=== PATIENT | male | born 1935 | race Hispanic/Latino ===

== ENCOUNTER 2018-09-01 17:03 | Inpatient (IN) | payer BC ==
[2018-09-01 17:10] VITALS: BMI 24.0
[2018-09-01] MEDS ORDERED: Sodium Chloride 0.9% 1,000 ML IV STA (18:34)
--- NOTE | 2018-09-01 18:34 | ED PDOC ---
Arrival/HPI - General Historian: Patient, Family - History of Present Illness Narrative History of Present Illness (Text): 09/01/18 18:28 82yo male with past medical history of hypertension, hyperlipdemia, CLL who present to Emergency department with the cousin by the bedside complaining of dizziness x 2days. The cousin also report poor appetite for months now and over 10lb weight loss over the past 2weeks. Patient describes dizziness as lightheadedness and almost having a syncopal episode with the dizziness. Denies any exacerbating/relieving factors. Also reports tinnitus to his right ear. The cousin states he had cerumen removal from his right ear a month ago. [facility] patient did not get treatment for the CLL secondary to his age and WBC count of 60,000. [facility] plan is to treat pt when the WBC goes above 100,000.00. Patient denies chest pain, shortness of breath, visual changes, diaphoresis, focal weakness, abdominal pain, nausea, vomiting, diarrhea, fever, chills, sick contact, any other complaint. <Yarely Britt A - Last Filed: 09/02/18 01:41> <Attila Ramirez - Last Filed: 09/05/18 03:33> - General Chief Complaint: Dizziness/Lightheaded Past Medical History - Provider Review Nursing Documentation Reviewed: Yes - Infectious Disease Hx of Infectious Diseases: None - Hematological/Oncological Hx Leukemia: Yes (cll) - Gastrointestinal Other/Comment: large inguinal hernia - Psychiatric Hx Psychophysiologic Disorder: No Hx Substance Use: No - Anesthesia Hx Anesthesia Reactions: No <Yarely Britt A - Last Filed: 09/02/18 01:41> Family/Social History - Physician Review Nursing Documentation Reviewed: Yes Family/Social History: Unknown Family HX Smoking Status: Unknown If Ever Smoked Hx Alcohol Use: No Hx Substance Use: No <Yarely Britt A - Last Filed: 09/02/18 01:41> Allergies/Home Meds <Yarely Britt A - Last Filed: 09/02/18 01:41> <Attila Ramirez - Last Filed: 09/05/18 03:33> Allergies/Adverse Reactions: Allergies No Known Allergies Allergy (Verified 09/01/18 17:30) Review of Systems - Physician Review All systems were reviewed & negative as marked: Yes - Review of Systems Constitutional: Normal Eyes: Normal ENT: Normal Respiratory: Normal Cardiovascular: Normal Gastrointestinal: Normal Genitourinary Male: Normal Musculoskeletal: Normal Skin: Normal Neurological: Dizziness. absent: Headache, Focal Weakness, Speech Changes Endocrine: Normal Hemo/Lymphatic: Normal Psychiatric: Normal <Diru,Happiness A - Last Filed: 09/02/18 01:41> Physical Exam Vital Signs Reviewed: Yes Vital Signs Temp Pulse Resp BP Pulse Ox 09/01/18 17:05 98.0 F 81 18 172/75 H 97 Temperature: Afebrile Blood Pressure: Normal Pulse: Regular Respiratory Rate: Normal Appearance: Positive for: Well-Appearing, Non-Toxic, Comfortable Pain Distress: None Mental Status: Positive for: Alert and Oriented X 3 - Systems Exam Head: Present: Atraumatic, Normocephalic Pupils: Present: PERRL Extroacular Muscles: Present: EOMI Conjunctiva: Present: Normal Ears: Present: Other (Partial cerumen impaction noted to b/l TM) Mouth: Present: Moist Mucous Membranes Neck: Present: Normal Range of Motion Respiratory/Chest: Present: Clear to Auscultation, Good Air Exchange. No: Respiratory Distress, Accessory Muscle Use, Wheezes, Decreased Breath Sounds, Rales, Retracting, Rhonchi Cardiovascular: Present: Regular Rate and Rhythm, Normal S1, S2. No: Murmurs Abdomen: Present: Normal Bowel Sounds. No: Tenderness, Distention, Peritoneal Signs, Rebound, Guarding, McBurney's Point Tender, Rovsing's Sign Present Genitourinary Male: Present: Other (Prominent nontender scrotal hernia noted) Back: Present: Normal Inspection Upper Extremity: Present: Normal Inspection. No: Cyanosis, Edema Lower Extremity: Present: Normal Inspection. No: Edema Neurological: Present: GCS=15, CN II-XII Intact, Speech Normal, Motor Func Grossly Intact, Normal Sensory Function, Normal Cerebellar Funct, Memory Normal Skin: Present: Warm, Dry, Normal Color. No: Rashes Psychiatric: Present: Alert, Oriented x 3, Normal Insight, Normal Concentration <Diru,Happiness A - Last Filed: 09/02/18 01:41> Vital Signs Temp Pulse Resp BP Pulse Ox 09/01/18 20:19 62 18 137/61 97 09/01/18 17:05 98.0 F 81 18 172/75 H 97 <Attila Ramirez - Last Filed: 09/05/18 03:33> Medical Decision Making ED Course and Treatment: 09/02/18 01:36 82yo male in Emergency department for dizziness, weakness, weight loss x few days. Labs EKG Chest X-ray 1L NS EKG NSR with left anterior fascicular block @ 77bpm Chest X-ray NAD Head CT IMPRESSION: No evidence of acute intracranial hemorrhage mass effect or midline shift. Volume loss and white matter changes likely represent chronic microvascular ischemic disease. Labs was reviewed and WBC of 41,000 was noted, this is secondary to pt's diagnosis of CLL. Lab was otherwise nonspecific. PT continued to complain of dizziness in Emergency department He was admitted for further evaluation to r/o cardiac or neuro cause of his symptom Case was DW Dr. Ag and he accepted pt to his service. - RAD Interpretation Radiology Orders: 09/01/18 17:31 CHEST PORTABLE [RAD] Stat 09/01/18 17:33 HEAD W/O CONTRAST [CT] Stat <Yarely Britt - Last Filed: 09/02/18 01:41> - Lab Interpretations Lab Results: 09/01/18 19:15 09/01/18 19:15 Lab Results 09/01/18 19:15: Sodium 144, Potassium 4.2, Chloride 108 H, Carbon Dioxide 30, Anion Gap 11, BUN 16, Creatinine 1.0, Est GFR ( Amer) > 60, Est GFR (Non- Af Amer) > 60, Random Glucose 94, Calcium 9.1, Magnesium 2.3 H, Total Bilirubin 0.6, AST 30, ALT 22, Alkaline Phosphatase 81, Lactate Dehydrogenase 569, Total Creatine Kinase 26 L, Troponin I < 0.01, Total Protein 6.1, Albumin 4.0, Globulin 2.1, Albumin/Globulin Ratio 1.9 H 09/01/18 19:15: PT 11.3, INR 0.99, APTT 28.7 09/01/18 19:15: WBC 41.9 H*, RBC 3.71, Hgb 11.9 L, Hct 36.2 L, MCV 97.6, MCH 32.1, MCHC 32.9, RDW 14.8 H, Plt Count 98 L, MPV 10.8, Eos % (Auto) 0.2 L, Baso % (Auto) 0.2, Eos # (Auto) 0.1, Baso # (Auto) 0.09, Neutrophils % (Manual) 11 L, Lymphocytes % (Manual) 82 H, Atypical Lymphs % 5 H, Monocytes % (Manual) 1, Eosinophils % (Manual) 1, Platelet Evaluation Low 09/01/18 19:05: Urine Color Yellow, Urine Appearance Clear, Urine pH 7.0, Ur Specific [place] <= 1.005, Urine Protein Negative, Urine Glucose (UA) Negative, Urine Ketones Negative, Urine Blood Trace-lysed H, Urine Nitrate Negative, Urine Bilirubin Negative, Urine Urobilinogen 0.2, Ur Leukocyte Esterase Negative, Urine RBC Negative, Urine WBC Negative, Ur Epithelial Cells None - RAD Interpretation Radiology Orders: 09/01/18 17:31 CHEST ONE VIEW [RAD] Stat 09/01/18 17:33 HEAD W/O CONTRAST [CT] Stat - Medication Orders Current Medication Orders: Aspirin (Ecotrin) 81 mg PO DAILY [facility] Last Admin: 09/04/18 11:11 Dose: 81 mg Atorvastatin Calcium (Lipitor) 40 mg PO DIN [facility] Last Admin: 09/04/18 17:56 Dose: 40 mg Clopidogrel Bisulfate (Plavix) 75 mg PO DAILY [facility] Enoxaparin Sodium (Lovenox) 40 mg SC DAILY [facility]; Protocol Last Admin: 09/04/18 11:10 Dose: 40 mg Subcutaneous Administrations Document 09/04/18 11:10 CD (Rec: 09/04/18 11:10 CD [id number]) Injection Site MAR Injection Site Left Arm Charges for Administration # of Subcutaneous Administrations 1 Finasteride (Proscar) 5 mg PO DAILY [facility] Last Admin: 09/04/18 11:11 Dose: 5 mg Sodium Chloride (Sodium Chloride 0.9%) 1,000 mls @ 60 mls/hr IV .[id number] [facility] Last Admin: 09/04/18 00:29 Dose: Not Given Non-Admin Reason: bag still infusing Levothyroxine Sodium (Synthroid) 25 mcg PO 0600 [facility] Mupirocin (Bactroban Ointment) 0 gm TOP BID [facility] Last Admin: 09/04/18 18:56 Dose: 1 applic Pantoprazole Sodium (Protonix Ec Tab) 40 mg PO 0600 [facility] Last Admin: 09/04/18 05:26 Dose: 40 mg Quetiapine Fumarate (Seroquel) 25 mg PO HS [facility]; Protocol Last Admin: 09/04/18 21:07 Dose: 25 mg Behavioural Document 09/04/18 21:07 ALYSA (Rec: 09/04/18 21:07 [facility] WITH [facility] [id number]) Maintenance Maintenance Dose Yes Behavior Behavior for Medication: Anxiety Insomnia Re-Assess: Reassess Psych Meds Document 09/04/18 22:07 YANDELRAL (Rec: 09/04/18 23:17 [id number]) Reassess Psych Med Effective Tamsulosin HCl (Flomax) 0.4 mg PO DAILY [facility] Last Admin: 09/04/18 11:10 Dose: 0.4 mg Discontinued Medications Clopidogrel Bisulfate (Plavix) 300 mg PO STAT [facility] Stop: 09/04/18 16:37 Last Admin: 09/04/18 17:57 Dose: 300 mg Sodium Chloride (Sodium Chloride 0.9%) 1,000 mls @ 100 mls/hr IV .Q10H [facility] Stop: 09/02/18 04:33 Last Admin: 09/01/18 19:34 Dose: 100 mls/hr eMAR Start Stop Document 09/01/18 19:34 MR (Rec: 09/01/18 19:34 MR [id number]) Intravenous Solution Start Date 09/01/18 Start Time 19:34 Dexamethasone 2 mg/ Sodium (Chloride) 50.5 mls @ 150 mls/hr IV ONCE ONE Stop: 09/02/18 17:39 Last Admin: 09/02/18 18:16 Dose: 150 mls/hr eMAR Start Stop Document 09/02/18 18:16 (Rec: 09/02/18 18:17 [id number]) Intravenous Solution Start Date 09/02/18 Start Time 18:16 Meclizine HCl (Antivert) 25 mg PO STAT ST[facility] Stop: 09/01/18 19:49 Last Admin: 09/01/18 20:06 Dose: 25 mg Pantoprazole Sodium (Protonix Inj) 40 mg IVP DAILY [facility] Last Admin: 09/02/18 11:58 Dose: 40 mg IVP Administration Document 09/02/18 11:58 MF (Rec: 09/02/18 11:59 [id number]) Charges for Administration # of IVP Administrations 1 <Attila Ramirez - Last Filed: 09/05/18 03:33> - PA / SOIL TECHNICIAN / Resident Statement MIGUE has reviewed & agrees with the documentation as recorded. MIGUE has examined the patient and agrees with the treatment plan. <Attila Ramirez - Last Filed: 09/05/18 03:33> Disposition/Present on Arrival - Present on Arrival Any Indicators Present on Arrival: No History of DVT/PE: No History of Uncontrolled Diabetes: No Urinary Catheter: No History of Decub. Ulcer: No History Surgical Site Infection Following: None - Disposition Have Diagnosis and Disposition been Completed?: Yes Disposition Time: 20:00 Patient Plan: Admission <Yarely Britt - Last Filed: 09/02/18 01:41> <Attila Ramirez - Last Filed: 09/05/18 03:33> - Disposition Diagnosis: Near syncope, Weakness Disposition: HOSPITALIZED Patient Problems: Current Active Problems Problem Status Onset Near syncope Acute Weakness Acute Condition: FAIR
--- NOTE | 2018-09-01 18:38 | CT ---
Date of service: 09/01/2018 PROCEDURE: CT HEAD WITHOUT CONTRAST. HISTORY: dizziness COMPARISON: None available. TECHNIQUE: Axial computed tomography images were obtained through the head/brain without intravenous contrast. Radiation dose: Total exam DLP = 926.33 mGy-cm. This CT exam was performed using one or more of the following dose reduction techniques: Automated exposure control, adjustment of the mA and/or kV according to patient size, and/or use of iterative reconstruction technique. FINDINGS: HEMORRHAGE: No intracranial hemorrhage. BRAIN: No mass effect or edema. Mild to moderate volume loss. [id number] white matter changes may represent chronic microvascular ischemic disease. VENTRICLES: Unremarkable. No hydrocephalus. CALVARIUM: Unremarkable. PARANASAL SINUSES: Unremarkable as visualized. No significant inflammatory changes. MASTOID AIR CELLS: Unremarkable as visualized. No inflammatory changes. OTHER FINDINGS: None. IMPRESSION: No evidence of acute intracranial hemorrhage mass effect or midline shift. Volume loss and white matter changes likely represent chronic microvascular ischemic disease.
[2018-09-01 19:12] LABS: URINE BILIRUBIN NEGATIVE (NEGATIVE); URINE BLOOD TRACE-LYSED (NEGATIVE); URINE GLUCOSE (UA) NEGATIVE (NEGATIVE); URINE LEUKOCYTE ESTERASE NEGATIVE Leu/uL (NEGATIVE); URINE PROTEIN NEGATIVE mg/dL (<30 mg/dL); URINE UROBILINOGEN 0.2 E.U./dL (<1 E.U./dL)
[2018-09-01 19:13] LABS: URINE APPEARANCE CLEAR (CLEAR); URINE COLOR YELLOW (YELLOW)
[2018-09-01 19:20] LABS: URINE RBC NEGATIVE /hpf (0-2); URINE WBC NEGATIVE /hpf (0-6)
[2018-09-01 19:43] LABS: BASO # 0.09 K/mm3 (0.0-2.0); BASO % 0.2 % (0.0-3.0); EOS # 0.1 (0.0-0.7); EOS % 0.2 % (1.5-5.0); HEMOGLOBIN 11.9 g/dL (14.0-18.0); MEAN CELL VOLUME 97.6 fl (80.0-105.0); MEAN CORPUSCULAR HEMOGLOBIN 32.1 pg (25.0-35.0); MEAN CORPUSCULAR HGB CONC 32.9 g/dl (31.0-37.0); MEAN PLATELET VOLUME 10.8 fl (7.0-11.0); PLATELET COUNT 98 10^3/uL (120.0-450.0); RBC 3.71 10^6/uL (3.5-6.1); RED CELL DISTRIBUTION WIDTH 14.8 % (11.5-14.5)
[2018-09-01 19:50] LABS: ALB/GLOB RATIO 1.9 (1.1-1.8); ALT/SGPT 22 U/L (7-56); AST/SGOT 30 U/L (17-59); BLOOD UREA NITROGEN 16 mg/dL (7-21); CALCIUM 9.1 mg/dL (8.4-10.5); GFR NON-AFRICAN AMERICAN > 60
[2018-09-01 19:52] LABS: INR 0.99; PARTIAL THROMBOPLASTIN TIME 28.7 Seconds (25.1-36.5); PROTHROMBIN TIME 11.3 SECONDS (9.4-12.5)
[2018-09-01 19:58] LABS: WHITE BLOOD COUNT 41.9 10^3/uL (4.5-11.0)
[2018-09-01 20:01] LABS: TROPONIN I < 0.01 ng/mL
[2018-09-01 20:03] LABS: ATYPICAL LYMPHOCYTE 5 % (0.0-0.0); EOSINOPHIL 1 % (0.0-3.0); LYMPHOCYTE 82 % (22.0-35.0); MONOCYTE 1 % (1.0-6.0); NEUTROPHIL 11 % (50.0-70.0)
[2018-09-01 20:04] LABS: PLATELET ESTIMATE LOW (NORMAL)
--- NOTE | 2018-09-02 08:07 | CP.PCM.CON ---
History of Present Illness - History of Present Illness History of Present Illness: Awake, alert, oriented, no distress, feels dizzy when sitting up Reason for consultation:Cardiac evaluation of syncopal episode with dizziness Brief history of present illness: An 82 year old male who came in to the ER due to dizziness and lightheadedness almost having a syncopal episode. Complaints of tinnitus of right ear and recently had removal of impacted cerumen on right ear.History of hypertension, hyperlipidemia, CLL. Denies chest pain or shortness of breath. Seen and examined by me and Dr. Silva Review of Systems - Review of Systems All systems: reviewed and no additional remarkable complaints except Review of Systems: as per HPI Past Patient History - Infectious Disease Hx of Infectious Diseases: None - Past Social History Smoking Status: Unknown If Ever Smoked - CARDIAC Hx Cardiac Disorders: Yes Hx Hypercholesterolemia: Yes Hx Hypertension: Yes - PULMONARY Hx Respiratory Disorders: No - NEUROLOGICAL Hx Neurological Disorder: Yes Hx Dizziness: Yes - HEENT Hx HEENT Problems: Yes Other/Comment: [place] - RENAL Hx Chronic Kidney Disease: No - ENDOCRINE/METABOLIC Hx Endocrine Disorders: No - HEMATOLOGICAL/ONCOLOGICAL Hx Leukemia: Yes (cll) - INTEGUMENTARY Hx Dermatological Problems: No - MUSCULOSKELETAL/RHEUMATOLOGICAL Hx Musculoskeletal Disorders: Yes Hx Falls: Yes (08/23/18) - GASTROINTESTINAL Other/Comment: large inguinal hernia - GENITOURINARY/GYNECOLOGICAL Hx Genitourinary Disorders: Yes Hx Prostate Problems: Yes (hernia / enlarged prostate) - PSYCHIATRIC Hx Psychophysiologic Disorder: No Hx Substance Use: No - ANESTHESIA Hx Anesthesia Reactions: No Meds Allergies/Adverse Reactions: Allergies Allergy/AdvReac Type Severity Reaction Status Date / Time No Known Allergies Allergy Verified 09/01/18 17:30 - Medications Medications: Current Medications Aspirin (Ecotrin) 81 mg PO DAILY [facility] Atorvastatin Calcium (Lipitor) 40 mg PO DIN [facility] Enoxaparin Sodium (Lovenox) 40 mg SC DAILY [facility]; Protocol Sodium Chloride (Sodium Chloride 0.9%) 1,000 mls @ 60 mls/hr IV .[id number] [facility] Pantoprazole Sodium (Protonix Inj) 40 mg IVP DAILY [facility] Quetiapine Fumarate (Seroquel) 25 mg PO HS [facility]; Protocol Last Admin: 09/01/18 22:41 Dose: 25 mg Physical Exam - Constitutional Appears: Non-toxic, No Acute Distress - Head Exam Head Exam: NORMAL INSPECTION, NORMOCEPHALIC - Eye Exam Eye Exam: Normal appearance Pupil Exam: NORMAL ACCOMODATION - ENT Exam ENT Exam: Mucous Membranes Moist, Normal Exam Additional comments: ringing of right ear - Respiratory Exam Respiratory Exam: Clear to Auscultation Bilateral, NORMAL BREATHING PATTERN - Cardiovascular Exam Cardiovascular Exam: Bradycardia, +S1, +S2 Additional comments: Telemetry 50's - GI/Abdominal Exam GI & Abdominal Exam: Normal Bowel Sounds, Soft - Extremities Exam Extremities exam: Positive for: full ROM, normal capillary refill - Neurological Exam Neurological exam: Alert, Oriented x3 - Psychiatric Exam Psychiatric exam: Normal Affect, Normal Mood - Skin Skin Exam: Dry, Normal Color, Warm Results - Vital Signs Recent Vital Signs: Last Vital Signs Temp 98.5 F 09/02/18 06:00 Pulse 60 09/02/18 06:00 Resp 20 09/02/18 06:00 BP 132/61 09/02/18 06:00 Pulse Ox 94 L 09/02/18 06:00 - Labs Result Diagrams: 09/01/18 19:15 09/01/18 19:15 Labs: Laboratory Results - last 24 hr 09/01/18 09/01/18 09/01/18 19:05 19:15 19:15 WBC 41.9 H* RBC 3.71 Hgb 11.9 L Hct 36.2 L MCV 97.6 MCH 32.1 MCHC 32.9 RDW 14.8 H Plt Count 98 L MPV 10.8 Eos % (Auto) 0.2 L Baso % (Auto) 0.2 Eos # (Auto) 0.1 Baso # (Auto) 0.09 Neutrophils % (Manual) 11 L Lymphocytes % (Manual) 82 H Atypical Lymphs % 5 H Monocytes % (Manual) 1 Eosinophils % (Manual) 1 Platelet Evaluation Low PT 11.3 INR 0.99 APTT 28.7 Sodium Potassium Chloride Carbon Dioxide Anion Gap BUN Creatinine Est GFR ( Amer) Est GFR (Non-Af Amer) Random Glucose Calcium Magnesium Total Bilirubin AST ALT Alkaline Phosphatase Lactate Dehydrogenase Total Creatine Kinase Troponin I Total Protein Albumin Globulin Albumin/Globulin Ratio Urine Color Yellow Urine Appearance Clear Urine pH 7.0 Ur Specific [place] <= 1.005 Urine Protein Negative Urine Glucose (UA) Negative Urine Ketones Negative Urine Blood Trace-lysed H Urine Nitrate Negative Urine Bilirubin Negative Urine Urobilinogen 0.2 Ur Leukocyte Esterase Negative Urine RBC Negative Urine WBC Negative Ur Epithelial Cells None 09/01/18 19:15 WBC RBC Hgb Hct MCV MCH MCHC RDW Plt Count MPV Eos % (Auto) Baso % (Auto) Eos # (Auto) Baso # (Auto) Neutrophils % (Manual) Lymphocytes % (Manual) Atypical Lymphs % Monocytes % (Manual) Eosinophils % (Manual) Platelet Evaluation PT INR APTT Sodium 144 Potassium 4.2 Chloride 108 H Carbon Dioxide 30 Anion Gap 11 BUN 16 Creatinine 1.0 Est GFR ( Amer) > 60 Est GFR (Non-Af Amer) > 60 Random Glucose 94 Calcium 9.1 Magnesium 2.3 H Total Bilirubin 0.6 AST 30 ALT 22 Alkaline Phosphatase 81 Lactate Dehydrogenase 569 Total Creatine Kinase 26 L Troponin I < 0.01 Total Protein 6.1 Albumin 4.0 Globulin 2.1 Albumin/Globulin Ratio 1.9 H Urine Color Urine Appearance Urine pH Ur Specific [place] Urine Protein Urine Glucose (UA) Urine Ketones Urine Blood Urine Nitrate Urine Bilirubin Urine Urobilinogen Ur Leukocyte Esterase Urine RBC Urine WBC Ur Epithelial Cells Assessment & Plan - Assessment and Plan (Free Text) Assessment: An 82 year old male who came in to the ER due to dizziness and lightheadedness almost having a syncopal episode. Complaints of tinnitus of right ear and recently had removal of impacted cerumen on right ear.History of hypertension, hyperlipidemia, CLL (no treatment). Denies chest pain or shortness of breath.CT of head no bleeding. Rule out orthostatic hypotension, No previous cardiac work up at [facility]. Will order Echo to evaluate LV function and valves. Plan: ECHo to evaluate LV function Orthostatic vital signs Heart rate sinus bradycardia 50's Controlled blood pressure Troponin normal TSH, Lipid profile Continue IV hydration Continue current treatment Continue current medications Will follow up Chart reviewed Further recommendation during hospital course Plan and treatment discussed with Dr. Silva Thank you Dr. Ag for the opportunity of taking care of Mr. Juni Virk - Date & Time Date: 09/02/18 Time: 06:30
--- NOTE | 2018-09-02 08:11 | CP.PCM.CON ---
Past Patient History - Infectious Disease Hx of Infectious Diseases: None - Past Social History Smoking Status: Unknown If Ever Smoked - CARDIAC Hx Cardiac Disorders: Yes Hx Hypercholesterolemia: Yes Hx Hypertension: Yes - PULMONARY Hx Respiratory Disorders: No - NEUROLOGICAL Hx Neurological Disorder: Yes Hx Dizziness: Yes - HEENT Hx HEENT Problems: Yes Other/Comment: [place] - RENAL Hx Chronic Kidney Disease: No - ENDOCRINE/METABOLIC Hx Endocrine Disorders: No - HEMATOLOGICAL/ONCOLOGICAL Hx Leukemia: Yes (cll) - INTEGUMENTARY Hx Dermatological Problems: No - MUSCULOSKELETAL/RHEUMATOLOGICAL Hx Musculoskeletal Disorders: Yes Hx Falls: Yes (08/23/18) - GASTROINTESTINAL Other/Comment: large inguinal hernia - GENITOURINARY/GYNECOLOGICAL Hx Genitourinary Disorders: Yes Hx Prostate Problems: Yes (hernia / enlarged prostate) - PSYCHIATRIC Hx Psychophysiologic Disorder: No Hx Substance Use: No - ANESTHESIA Hx Anesthesia Reactions: No Meds Allergies/Adverse Reactions: Allergies Allergy/AdvReac Type Severity Reaction Status Date / Time No Known Allergies Allergy Verified 09/01/18 17:30 - Medications Medications: Current Medications Aspirin (Ecotrin) 81 mg PO DAILY [facility] Atorvastatin Calcium (Lipitor) 40 mg PO DIN [facility] Enoxaparin Sodium (Lovenox) 40 mg SC DAILY [facility]; Protocol Sodium Chloride (Sodium Chloride 0.9%) 1,000 mls @ 60 mls/hr IV .[id number] [facility] Pantoprazole Sodium (Protonix Inj) 40 mg IVP DAILY [facility] Quetiapine Fumarate (Seroquel) 25 mg PO HS [facility]; Protocol Last Admin: 09/01/18 22:41 Dose: 25 mg Results - Vital Signs Recent Vital Signs: Last Vital Signs Temp 98.5 F 09/02/18 06:00 Pulse 60 09/02/18 06:00 Resp 20 09/02/18 06:00 BP 132/61 09/02/18 06:00 Pulse Ox 94 L 09/02/18 06:00 - Labs Result Diagrams: 09/01/18 19:15 09/01/18 19:15 Labs: Laboratory Results - last 24 hr 09/01/18 09/01/18 09/01/18 19:05 19:15 19:15 WBC 41.9 H* RBC 3.71 Hgb 11.9 L Hct 36.2 L MCV 97.6 MCH 32.1 MCHC 32.9 RDW 14.8 H Plt Count 98 L MPV 10.8 Eos % (Auto) 0.2 L Baso % (Auto) 0.2 Eos # (Auto) 0.1 Baso # (Auto) 0.09 Neutrophils % (Manual) 11 L Lymphocytes % (Manual) 82 H Atypical Lymphs % 5 H Monocytes % (Manual) 1 Eosinophils % (Manual) 1 Platelet Evaluation Low PT 11.3 INR 0.99 APTT 28.7 Sodium Potassium Chloride Carbon Dioxide Anion Gap BUN Creatinine Est GFR ( Amer) Est GFR (Non-Af Amer) Random Glucose Calcium Magnesium Total Bilirubin AST ALT Alkaline Phosphatase Lactate Dehydrogenase Total Creatine Kinase Troponin I Total Protein Albumin Globulin Albumin/Globulin Ratio Urine Color Yellow Urine Appearance Clear Urine pH 7.0 Ur Specific [place] <= 1.005 Urine Protein Negative Urine Glucose (UA) Negative Urine Ketones Negative Urine Blood Trace-lysed H Urine Nitrate Negative Urine Bilirubin Negative Urine Urobilinogen 0.2 Ur Leukocyte Esterase Negative Urine RBC Negative Urine WBC Negative Ur Epithelial Cells None 09/01/18 19:15 WBC RBC Hgb Hct MCV MCH MCHC RDW Plt Count MPV Eos % (Auto) Baso % (Auto) Eos # (Auto) Baso # (Auto) Neutrophils % (Manual) Lymphocytes % (Manual) Atypical Lymphs % Monocytes % (Manual) Eosinophils % (Manual) Platelet Evaluation PT INR APTT Sodium 144 Potassium 4.2 Chloride 108 H Carbon Dioxide 30 Anion Gap 11 BUN 16 Creatinine 1.0 Est GFR ( Amer) > 60 Est GFR (Non-Af Amer) > 60 Random Glucose 94 Calcium 9.1 Magnesium 2.3 H Total Bilirubin 0.6 AST 30 ALT 22 Alkaline Phosphatase 81 Lactate Dehydrogenase 569 Total Creatine Kinase 26 L Troponin I < 0.01 Total Protein 6.1 Albumin 4.0 Globulin 2.1 Albumin/Globulin Ratio 1.9 H Urine Color Urine Appearance Urine pH Ur Specific [place] Urine Protein Urine Glucose (UA) Urine Ketones Urine Blood Urine Nitrate Urine Bilirubin Urine Urobilinogen Ur Leukocyte Esterase Urine RBC Urine WBC Ur Epithelial Cells Assessment & Plan - Assessment and Plan (Free Text) Assessment: 82yo male with past medical history of hypertension, hyperlipdemia, CLL who pr esent to Emergency department with the cousin by the bedside complaining of dizziness x 2days. The cousin also report poor appetite for months now and over 10lb weight loss over the past 2weeks. Patient describes dizziness as lightheadedness and almost having a syncopal episode with the dizziness. Denies any exacerbating/relieving factors. Also reports tinnitus to his right ear. The cousin states he had cerumen removal from his right ear a month ago. [facility] patient did not get treatment for the CLL secondary to his age and WBC count of 60,000. [facility] plan is to treat pt when the WBC goes above 100,000.00. Patient denies chest pain, shortness of breath, visual changes, diaphoresis, focal weakness, abdominal pain, nausea, vomiting, diarrhea, fever, chills, sick contact, any other complaint.
--- NOTE | 2018-09-02 08:47 | RAD ---
Date of service: 09/01/2018 PROCEDURE: CHEST RADIOGRAPH, 1 VIEW HISTORY: admission COMPARISON: None available. FINDINGS: LUNGS: Clear. PLEURA: No pneumothorax or pleural fluid seen. CARDIOVASCULAR: Normal. Aortic calcifications are seen. OSSEOUS STRUCTURES: No significant abnormalities. VISUALIZED UPPER ABDOMEN: Normal. OTHER FINDINGS: None. IMPRESSION: No active disease.
--- NOTE | 2018-09-02 10:54 | US ---
PROCEDURE: Bilateral carotid artery duplex ultrasound HISTORY: carotid stenosis syncope PHYSICIAN(S): Armando Sesay MD. TECHNIQUE: Duplex sonography and color-flow Doppler were used to evaluate the carotid bifurcations and limited segments of the vertebral arteries bilaterally. FINDINGS: There is mild to moderate smooth heterogeneous plaque noted at the carotid bifurcations bilaterally. The peak systolic velocity in the proximal right internal carotid artery is 87 cm/sec. This corresponds to a 20 to 39% proximal right ICA stenosis. Normal systolic velocities are noted in the proximal right external carotid artery. There is antegrade flow in the right vertebral artery. The peak systolic velocity in the proximal left internal carotid artery is 101 cm/sec. This corresponds to a 20 to 39% proximal left ICA stenosis. Normal systolic velocities are noted in the proximal left external carotid artery. There is antegrade flow in the left vertebral artery. IMPRESSION: 1. Bilateral 20-39% proximal ICA stenoses. 2. Antegrade flow in both vertebral arteries.
[2018-09-02] MEDS: Enoxaparin 40 mg Syringe SC SCH (12:00)
--- NOTE | 2018-09-02 12:29 | CARD ---
APPROVED REPORT Date of service: 09/01/2018 EKG Measurement Heart [id number] [id number] <Conclusion> Normal sinus rhythm Left anterior fascicular block Abnormal ECG
--- NOTE | 2018-09-02 12:44 | CARD ---
APPROVED REPORT Date of service: 09/02/2018 EXAM: Two-dimensional and M-mode echocardiogram with Doppler and color Doppler. INDICATION LVFX 2D DIMENSIONS Left Atrium (2D)3.6 (1.6-4.0cm)IVSd0.9 (0.7-1.1cm) LVDd5.1 (3.9-5.9cm)PWd1.1 (0.7-1.1cm) LVDs2.9 (2.5-4.0cm)FS (%) 44.0 % LVEF (%)74.8 (>50%) M-Mode DIMENSIONS Aortic Root3.70 (2.2-3.7cm)Aortic Cusp Exc.2.00 (1.5-2.0cm) Aortic Valve AoV Peak Ikoriyys609.0cm/Alek Peak GR.11mmHg Mitral Valve MV E Lhnoljbo880.0cm/sMV A Xnkeizmr645.0cm/sE/A ratio1.0 TDI Lateral E' Peak V6.82cm/sMedial E' Peak V7.31cm/sE/Lateral E'15.1 E/Medial E'14.1 Pulmonary Valve PV Peak Qqzyjnhd699.0cm/sPV Peak Grad.5mmHg Tricuspid Valve TR Peak Dnskojvz836iv/sRAP [id number] Peak Gr.57mmHg [id number] LEFT VENTRICLE The left ventricle is normal size. There is normal left ventricular wall thickness. The left ventricular function is normal.EF-70-75% . There is normal LV segmental wall motion. Transmitral Doppler flow pattern is Grade II-pseudonormal filling dynamics. No left ventricle thrombus noted on this study. There is no ventricular septal defect visualized. There is no left ventricular aneurysm. There is no mass noted in the left ventricle. RIGHT VENTRICLE The right ventricle is moderately dilated. There is normal right ventricular wall thickness. Systolic function of RV is mildly to moderately reduced. ATRIA The left atrium size is normal. The right atrium is mildly dilated. The interatrial septum is intact with no evidence for an atrial septal defect. AORTIC VALVE The aortic valve is moderately thickened. The aortic valve is mildly to moderately sclerotic. There is trace aortic regurgitation. There is no aortic valvular stenosis. There is no aortic valvular vegetation. MITRAL VALVE The mitral valve is thickened but opens well. Mitral regurgitation is mild. There is no mitral valve stenosis. There is no evidence of mitral valve prolapse. TRICUSPID VALVE The tricuspid valve leaflets are thickened , but open well. There is moderate tricuspid regurgitation., Multiple Jets.RVSP-67 mmof hg There is moderate pulmonary hypertension. There is no tricuspid valve stenosis. There is no tricuspid valve prolapse or vegetation. PULMONIC VALVE The pulmonary valve is normal in structure. There is trace pulmonic valvular regurgitation. There is no pulmonic valvular stenosis. GREAT VESSELS The aortic root is normal in size. The ascending aorta is normal in size. The pulmonary artery is normal. The IVC is normal in size and collapses >50% with inspiration. PERICARDIAL EFFUSION There is no pleural effusion. There is no pericardial effusion. <Conclusion> There is normal left ventricular wall thickness. The left ventricular function is normal.EF-70-75% The right ventricle is moderately dilated. Systolic function of RV is mildly to moderately reduced. There is trace aortic regurgitation. Mitral regurgitation is mild. There is moderate tricuspid regurgitation., Multiple Jets.RVSP-67 mmof hg There is moderate pulmonary hypertension. The IVC is normal in size and collapses >50% with inspiration. There is no pericardial effusion.
[2018-09-02] MEDS ORDERED: Dexamethasone 2 MG in Sodium Chloride 0.9% 50 ML IV ONE (17:19)
[2018-09-02] MEDS ORDERED: Dexamethasone 4 mg/1 ml ONE (17:34)
[2018-09-02] MEDS: Mupirocin 2% Ointment 15 GM TUBE TOP SCH (18:15)
--- NOTE | 2018-09-02 21:10 | CON ---
DATE: 09/02/2018 CHIEF COMPLAINT: Dizziness. HISTORY OF PRESENT ILLNESS: This is an 82-year-old man with past medical history of hypertension, hyperlipidemia, CLL, not on any medications, who presented to the hospital with dizziness and almost having a near syncopal event. He complained of tinnitus in the right ear after recently having removed impacted cerumen in his right ear. He mentions this occurs more as a spinning sensation of the room, especially when he gets up from sitting to standing position or from lying to sitting. Currently, not much ringing in the ears. He is eating his dinner at bedside without any difficulties. No focal weakness of extremities. ALLERGIES: NO KNOWN DRUG ALLERGIES. SOCIAL HISTORY: No illicit drug use, smoking, or EtOH abuse. REVIEW OF SYSTEMS: Fourteen-point review of systems is negative except as per the HPI. FAMILY HISTORY: Noncontributory. MEDICATIONS: Reviewed by nurse's reconciliation sheet. LABORATORY DATA: Sodium is 144, potassium 4.2, chloride 108, carbon dioxide 30, BUN of 16, creatinine of 1. Random glucose 184. PHYSICAL EXAMINATION: GENERAL: The patient is sitting up at the edge of the bed eating his food with a delightful smile. VITAL SIGNS: Temperature of 97.8, pulse rate 66, blood pressure 124/82, respiratory rate 18, orthostatic vital signs. HEENT: Atraumatic, normocephalic. PERRLA. Extraocular muscles intact. NECK: Supple. No JVD. No adenopathy noted. LUNGS: Clear to auscultation. No adventitious sounds. HEART: S1 and S2. Normal rate and rhythm. No murmurs, rubs, or gallops. ABDOMEN: Soft, nontender, and nondistended. Bowel sounds are present. EXTREMITIES: No clubbing. No cyanosis. Peripheral pulses 2+ bilaterally. NEUROLOGICAL: The patient is alert and oriented to person, place, month, and year. Speech is fluent without any errors. Cranial nerves II through XII intact. Motor: Slightly increased tone throughout. Moves all extremities equally. Toes are downgoing bilaterally. Sensory: Light touch, pinprick, proprioception, and vibration are intact. DTRs are 2+ throughout, 1 in both knees and ankles. Coordination [id number] intact. No dysmetria noted. IMPRESSION: His dizziness is more of likely vestibular neuritis versus positional vertigo, superimposed on underlying deconditioned state. His carotid Doppler showed 20% to 39% proximal ICA stenosis with antegrade flow in vertebral arteries. CAT scan of the head showed no acute intracranial abnormalities. At this time, we recommend: 1. Meclizine 12.5 mg p.r.n. at the acute onset of dizziness. 2. We will give one dose of dexamethasone 2 mg IV push for vertigo. 3. Aspirin 81 and Lipitor 40 for stroke prevention. 4. Seroquel p.o. every night at bedtime for any agitation at night. At this time, he is clinically stable. Avery Rodriguez MD
[2018-09-03] MEDS: Sodium Chloride 0.9% 1,000 ML IV SCH ×2 (00:45→18:09)
[2018-09-03] MEDS: Pantoprazole 40 mg EC Tab PO SCH (05:50)
[2018-09-03 07:04] LABS: HDL CHOLESTEROL 22 mg/dL (29-60)
[2018-09-03 07:15] LABS: LDL CHOLESTEROL 87 mg/dL (0-129)
--- NOTE | 2018-09-03 08:43 | CON ---
DATE: 09/02/2018 SERVICE: Cardiology. REASON FOR CONSULTATION: Dizziness more so in a standing or changing the posture. This note is in addition to consult dictated by nurse practitioner, Farida Cardona. HISTORY OF PRESENT ILLNESS: In summary, this is an 82-year-old male with past medical history significant for CLL, hypertension, and hyperlipidemia admitted because of having increased dizziness on standing or changing the posture and feel the patient is going to pass out, so came into emergency room, this happening for a while. Denies any chest pain, shortness of breath, any palpitations. RECOMMENDATIONS: We will do orthostatic hypotension, rule out any involvement of CLL, though initial CAT scan is negative. No evidence of intracerebral bleed, volume loss, and white matter changes most likely secondary to microvascular ischemic changes. Suggest probably MRI of the brain after seen by neurologist. If needed, we will get echo to assess LV function. We will get the carotid Duplex as well as orthostatic hypotension, lipid profile, TSH, and hemoglobin A1c. Thank you for providing us the opportunity in taking care of the patient, Juni Virk. Trudi Silva MD
--- NOTE | 2018-09-03 10:36 | PN ---
DATE: 09/03/2018 REASON FOR CONSULTATION AND FOLLOWUP: Dizziness on standing or changing postures. SUBJECTIVE: The patient denies any chest pain, shortness of breath or any palpitation. PHYSICAL EXAMINATION: GENERAL: Not in apparent distress. VITAL SIGNS: Temperature afebrile, heart rate 52, blood pressure 119/57. HEENT: PERRLA intact. NECK: Supple. No carotid bruit. No thyromegaly. CHEST: Clear to auscultation. HEART: S1 and S2 regular. ABDOMEN: Soft. EXTREMITIES: Clubbing and cyanosis negative. LABORATORY DATA: WBC 41.9, hemoglobin 11.9, hematocrit 36.2, platelet count 98. Sodium 140, potassium 4.2, chloride 108, carbon dioxide 30, anion gap of 11, BUN 16, creatinine 1. The patient had echocardiography done yesterday that showed ejection fraction 70-75%. Right ventricle is moderately dilated. RV function is moderately reduced. Trace aortic regurgitation and mild mitral regurg and moderate tricuspid regurgitation. Multiple jet RV systolic pressure of 67 consistent with moderate pulmonary hypertension. IMPRESSION: An 82-year-old male with past medical history significant for chronic lymphocytic leukemia, hypertension, hyperlipidemia. Denies any chest pain, admitted with dizziness. The patient denies any chest pain, but Dr. Ag says that the patient had complaint of back pain on working and get better on taking rest. According to him, it looks like angina of new onset and 5 to 10 years ago, according to Dr. Ag, he was suggested cardiac catheterization, but the patient never followed up. RECOMMENDATIONS: We will put continue Holter monitor because of bradycardia and we will do stress test to rule out any coronary artery disease, angina, also suggest to follow up with Heme/Onc. So far, no evidence of acute PA. We will follow up with you. We will keep n.p.o. after midnight for stress test tomorrow. Thank you Dr. Ag for providing us the opportunity in taking care of the patient, Juni Virk. Trudi Silva MD
[2018-09-03] MEDS: Enoxaparin 40 mg Syringe SC SCH (10:37)
[2018-09-03] MEDS: Mupirocin 2% Ointment 15 GM TUBE TOP SCH ×2 (10:38→18:12)
--- NOTE | 2018-09-03 11:35 | CP.PCM.CON ---
History of Present Illness - History of Present Illness History of Present Illness: Hematology/Oncology Consultation (Dr. Tran's Service) CC: CLL/Thrombocytopenia HPI: Mr. Virk is an 82 year old male with a past medical history significant for CLL, HTN, HLD, BPH and inguinal hernia who was admitted for dizziness and syncope for two days while at home. Patient was also reported to have unintentionally lost 10 pounds and has poor appetite over that time frame. Hematology/Oncology was consulted for patients history of CLL and thrombocytopenia. Patient describes that for the past two days he has been experiencing a spinning sensation intermittently while at rest and also when going from sitting to standing. He also endorses intermittent ringing in his ears. He denies ever having experienced this in the past. He reports that he was not treated for his CLL because of his age and because his WBC did not meet criteria to treat. Patient denies any recent travel, sick contacts, LOC, headache, changes in his vision, focal weakness, falls, or any numbness/tingling of any extremity. Further 12 point ROS outside of what has been mentioned already was reviewed and is otherwise unremarkable. PMH: As stated above PSH: Denies Family History: Non-Contributory Social History: Denies any tobacco, alcohol or any illicit drug use Allergies: NKDA Home Medications: As per MAR PMD: Dr. Ag Review of Systems - Review of Systems Review of Systems: As stated in HPI, otherwise negative Past Patient History - Infectious Disease Hx of Infectious Diseases: None - Past Social History Smoking Status: Unknown If Ever Smoked - CARDIAC Hx Cardiac Disorders: Yes Hx Hypercholesterolemia: Yes Hx Hypertension: Yes - PULMONARY Hx Respiratory Disorders: No - NEUROLOGICAL Hx Neurological Disorder: Yes Hx Dizziness: Yes - HEENT Hx HEENT Problems: Yes Other/Comment: [place] - RENAL Hx Chronic Kidney Disease: No - ENDOCRINE/METABOLIC Hx Endocrine Disorders: No - HEMATOLOGICAL/ONCOLOGICAL Hx Leukemia: Yes (cll) - INTEGUMENTARY Hx Dermatological Problems: No - MUSCULOSKELETAL/RHEUMATOLOGICAL Hx Musculoskeletal Disorders: Yes Hx Falls: Yes (08/23/18) - GASTROINTESTINAL Other/Comment: large inguinal hernia - GENITOURINARY/GYNECOLOGICAL Hx Genitourinary Disorders: Yes Hx Prostate Problems: Yes (hernia / enlarged prostate) - PSYCHIATRIC Hx Psychophysiologic Disorder: No Hx Substance Use: No - ANESTHESIA Hx Anesthesia Reactions: No Meds Allergies/Adverse Reactions: Allergies Allergy/AdvReac Type Severity Reaction Status Date / Time No Known Allergies Allergy Verified 09/01/18 17:30 - Medications Medications: Current Medications Aspirin (Ecotrin) 81 mg PO DAILY [facility] Last Admin: 09/03/18 10:37 Dose: 81 mg Atorvastatin Calcium (Lipitor) 40 mg PO DIN [facility] Last Admin: 09/02/18 18:15 Dose: 40 mg Enoxaparin Sodium (Lovenox) 40 mg SC DAILY [facility]; Protocol Last Admin: 09/03/18 10:37 Dose: 40 mg Sodium Chloride (Sodium Chloride 0.9%) 1,000 mls @ 60 mls/hr IV .[id number] [facility] Last Admin: 09/03/18 00:45 Dose: 60 mls/hr Mupirocin (Bactroban Ointment) 0 gm TOP BID [facility] Last Admin: 09/03/18 10:38 Dose: 1 applic Pantoprazole Sodium (Protonix Ec Tab) 40 mg PO 0600 [facility] Last Admin: 09/03/18 05:50 Dose: 40 mg Quetiapine Fumarate (Seroquel) 25 mg PO HS [facility]; Protocol Last Admin: 09/02/18 21:53 Dose: 25 mg Physical Exam - Constitutional Appears: Non-toxic, No Acute Distress - Head Exam Head Exam: ATRAUMATIC, NORMOCEPHALIC - Eye Exam Eye Exam: EOMI, PERRL - ENT Exam ENT Exam: Mucous Membranes Moist - Neck Exam Neck exam: Positive for: Full Rom, Normal Inspection. Negative for: Lymphadenopathy, Meningismus, Tenderness, Thyromegaly - Respiratory Exam Respiratory Exam: Clear to Auscultation Bilateral, NORMAL BREATHING PATTERN. absent: Accessory Muscle Use, Decreased Breath Sounds, Rhonchi, Wheezes, Respiratory Distress - Cardiovascular Exam Cardiovascular Exam: Bradycardia, REGULAR RHYTHM, +S1, +S2 - GI/Abdominal Exam GI & Abdominal Exam: Normal Bowel Sounds, Soft. absent: Tenderness - Extremities Exam Extremities exam: Negative for: calf tenderness - Neurological Exam Neurological exam: Alert, Oriented x3 - Psychiatric Exam Psychiatric exam: Normal Affect, Normal Mood - Skin Skin Exam: Dry, Warm Results - Vital Signs Recent Vital Signs: Last Vital Signs Temp 97.3 F L 09/03/18 06:00 Pulse 52 L 09/03/18 06:00 Resp 18 09/03/18 06:00 BP 119/57 L 09/03/18 06:00 Pulse Ox 99 09/03/18 06:00 - Labs Result Diagrams: 09/01/18 19:15 09/01/18 19:15 Labs: Laboratory Results - last 24 hr 09/03/18 09/03/18 06:30 06:30 Triglycerides 134 Cholesterol 120 L LDL Cholesterol Direct 87 HDL Cholesterol 22 L TSH 3rd Generation 0.48 Assessment & Plan - Assessment and Plan (Free Text) Assessment: 82 year old male with a past medical history significant for CLL, HTN, HLD, BPH and inguinal hernia who was admitted for dizziness and syncope for two days while at home. Hematology/Oncology was consulted for patients history of CLL and thrombocytopenia. Plan: -CT Head showed no acute ICA's -Carotid US showed bilateral 20-39% proximal ICA stenosis -2D Echocardiogram showed normal LV systolic function, normal LVEF, moderately reduced RV systolic dysfunction and moderate pHTN -Chest X-Ray showed no active disease -EKG showed NSR -Leukocytosis of 41.9 and thrombocytopenia of 98 on CBC done on 09/01 -CBC with differential and manual platelet count for today (09/03) pending -Will obtain flow cytometry, Zap70, IGHV gene mutation and heavy chain gene rear rangement studies as prognostic factors for CLL -Daily CBC's with differentials and manual platelet counts -Further recommendations as per Dr. Tran Patient seen and case discussed with attending, Dr. Tran. Jose Ramírez PGY2 - Date & Time Date: 09/03/18 Time: 11:35
--- NOTE | 2018-09-03 12:43 | HP ---
DATE OF EXAM: 09/02/2018 An 82-year-old male came in with syncope. HISTORY OF PRESENT ILLNESS: An 82-year-old male who has a history of hypercholesterolemia, CLL, history of coronary artery disease, declined cardiac catheterization or any interventions years ago, came into the hospital after feeling weak, fell on the floor and does not recall any other complaint. No chest pain. No shortness of breath. No nausea, vomiting, fever, chills or diarrhea. PAST MEDICAL HISTORY: He does have a history of coronary artery disease. At one time had some psychotic features in the past, which seems doing well with Seroquel. Hypercholesterolemia, chronic lymphocytic leukemia, generalized weakness. He does have large inguinal hernia. SOCIAL HISTORY: The patient lives alone in [facility]. He has a poor hygiene. His cousin is very supportive to him. Patient is more of introverted. Does not have much social support or any friends. MEDICATIONS: He takes Seroquel 25 mg a night, Prilosec 40 mg every day, he takes Lipitor 40 once a day, he is taking baby aspirin once a day. Other medications he does not have it, but he takes B12 injections, he takes multivitamins, he takes vitamin D. REVIEW OF SYSTEMS: He does have, as I mentioned has struggled with urination due to a large hernia which area, embedded in his scrotal sac with difficult urination and some dysuria. Also, he does have limited activity. He does have back pain with exertion, gets better with rest. It is kind of angina pain. FAMILY HISTORY: Noncontributory. PHYSICAL EXAMINATION: VITAL SIGNS: Temperature 98.3, heart rate is 66, blood pressure 112/48, respirations 18. HEAD AND NECK: Normal. No JVD. No thyromegaly. CHEST: Clear bilaterally. CARDIAC: First sound, second sound normal. No murmur, rub or gallop. ABDOMEN: Soft. There is a large inguinal hernia. EXTREMITIES: Lower extremities: No edema. SKIN: There is poor hygiene with dry skin. LABORATORY STUDIES: White count 41.9, hemoglobin 11.9, hematocrit 36.2, platelets 98,000. Chemistry: Sodium 144, potassium 4.2, chloride 108, bicarb 30, BUN 16, creatinine 1. Liver function test is normal. Magnesium 2.3 and TSH is 0.48. The patient also had urine test, which was normal. DIAGNOSTICS: A head CT which is negative and also had a chest x-ray, which shows no pneumonia, pleural effusions and no active pulmonary disease, lung is clear. EKG shows normal sinus rhythm, left anterior fascicular block. IMPRESSION AND PLAN: This is an 82-year-old male with history of cardiac disease came in because of syncope. In this age group, we have to rule out cardiovascular and neurovascular etiology. Observation does have some vertigo symptoms, so differential with serious etiology is vertigo. We will admit the patient for consultation by: 1. Syncope. Consultation: Neuro consult, Cardiology consult and will follow up clinically. 2. CLL, chronic. Could be probably responsible for the fatigue, history of fall and we will give you Oncology consult to follow up on that. 3. Large hiatal hernia, cannot do much about it before cardiac clearance, but we will consult surgeon for it. Continue current therapy for now, follow up clinically. Hany Ag MD
--- NOTE | 2018-09-03 13:07 | CP.PCM.CON ---
History of Present Illness - History of Present Illness History of Present Illness: General Surgery Consult Note: Dr. Estrella 82M with PMHx of chronic lymphocytic leukemia, HTN, hyperlipidemia, BPH, was admitted for dizziness and syncope. General surgery was consulted for the presence of a large inguinal hernia. Currently patient states his iguinal hernias are not causing him any issues. He is able to tolerate a regular diet. Denies nausea/vomiting. Reports he is passing flatus and having normal BMs. Denies any pain along inguinal hernia sites. They are easily reducible. Complaining of dizziness with sudden changes in position. PMH: As stated above PSurgHx: denies Social History: Denies any tobacco, EtOH use, illicit drug use Allergies: NKDA Review of Systems - Review of Systems Review of Systems: 10 pt ROS negative, except as stated in HPI Past Patient History - Infectious Disease Hx of Infectious Diseases: None - Past Social History Smoking Status: Unknown If Ever Smoked - CARDIAC Hx Cardiac Disorders: Yes Hx Hypercholesterolemia: Yes Hx Hypertension: Yes - PULMONARY Hx Respiratory Disorders: No - NEUROLOGICAL Hx Neurological Disorder: Yes Hx Dizziness: Yes - HEENT Hx HEENT Problems: Yes Other/Comment: [place] - RENAL Hx Chronic Kidney Disease: No - ENDOCRINE/METABOLIC Hx Endocrine Disorders: No - HEMATOLOGICAL/ONCOLOGICAL Hx Leukemia: Yes (cll) - INTEGUMENTARY Hx Dermatological Problems: No - MUSCULOSKELETAL/RHEUMATOLOGICAL Hx Musculoskeletal Disorders: Yes Hx Falls: Yes (08/23/18) - GASTROINTESTINAL Other/Comment: large inguinal hernia - GENITOURINARY/GYNECOLOGICAL Hx Genitourinary Disorders: Yes Hx Prostate Problems: Yes (hernia / enlarged prostate) - PSYCHIATRIC Hx Psychophysiologic Disorder: No Hx Substance Use: No - ANESTHESIA Hx Anesthesia Reactions: No Meds Allergies/Adverse Reactions: Allergies Allergy/AdvReac Type Severity Reaction Status Date / Time No Known Allergies Allergy Verified 09/01/18 17:30 - Medications Medications: Current Medications Aspirin (Ecotrin) 81 mg PO DAILY [facility] Last Admin: 09/03/18 10:37 Dose: 81 mg Atorvastatin Calcium (Lipitor) 40 mg PO DIN [facility] Last Admin: 09/02/18 18:15 Dose: 40 mg Enoxaparin Sodium (Lovenox) 40 mg SC DAILY [facility]; Protocol Last Admin: 09/03/18 10:37 Dose: 40 mg Sodium Chloride (Sodium Chloride 0.9%) 1,000 mls @ 60 mls/hr IV .[id number] [facility] Last Admin: 09/03/18 00:45 Dose: 60 mls/hr Mupirocin (Bactroban Ointment) 0 gm TOP BID [facility] Last Admin: 09/03/18 10:38 Dose: 1 applic Pantoprazole Sodium (Protonix Ec Tab) 40 mg PO 0600 [facility] Last Admin: 09/03/18 05:50 Dose: 40 mg Quetiapine Fumarate (Seroquel) 25 mg PO HS [facility]; Protocol Last Admin: 09/02/18 21:53 Dose: 25 mg Physical Exam - Constitutional Appears: No Acute Distress - Head Exam Head Exam: NORMOCEPHALIC - Eye Exam Eye Exam: EOMI, Normal appearance - ENT Exam ENT Exam: Mucous Membranes Moist - Respiratory Exam Respiratory Exam: NORMAL BREATHING PATTERN - Cardiovascular Exam Cardiovascular Exam: +S1, +S2 - GI/Abdominal Exam GI & Abdominal Exam: Hernia, Soft. absent: Distended, Firm, Guarding Additional comments: large defect b/l inguinal hernias Easily reducible Not incarcerated - Neurological Exam Neurological exam: Alert, Oriented x3 - Psychiatric Exam Psychiatric exam: Normal Mood - Skin Skin Exam: Intact, Normal Color, Warm Results - Vital Signs Recent Vital Signs: Last Vital Signs Temp 97.3 F L 09/03/18 06:00 Pulse 65 09/03/18 10:00 Resp 18 09/03/18 06:00 BP 119/57 L 09/03/18 06:00 Pulse Ox 99 09/03/18 06:00 - Labs Result Diagrams: 09/01/18 19:15 09/01/18 19:15 Labs: Laboratory Results - last 24 hr 09/03/18 09/03/18 09/03/18 06:30 06:30 06:50 Hemoglobin A1c 6.1 Triglycerides 134 Cholesterol 120 L LDL Cholesterol Direct 87 HDL Cholesterol 22 L TSH 3rd Generation 0.48 Assessment & Plan - Assessment and Plan (Free Text) Assessment: 82M with b/l inguinal hernias, not incarcerated, easily reducible Plan: -Patient tolerating regular diet, passing flatus, and having normal bowel movements -Recommend elective repair of inguinal hernias -Currently patient being worked up for CLL -History of CLL, thrombocytopenia will delay wound healing course -Preferably patient should undergo appropriate treatment for his CLL prior to s urgical repair of b/l inguinal hernias -Recommend stool softeners -No further plans for surgical intervention at this present time -D/w Dr. Sameer Ramirez PGY3
[2018-09-03 14:11] LABS: HEMOGLOBIN 10.8 g/dL (14.0-18.0); MEAN CELL VOLUME 98.8 fl (80.0-105.0); MEAN CORPUSCULAR HGB CONC 32.3 g/dl (31.0-37.0); MEAN PLATELET VOLUME 10.2 fl (7.0-11.0); PLATELET COUNT 88 10^3/uL (120.0-450.0); RBC 3.38 10^6/uL (3.5-6.1); RED CELL DISTRIBUTION WIDTH 14.8 % (11.5-14.5)
[2018-09-03 14:14] LABS: WHITE BLOOD COUNT 46.6 10^3/uL (4.5-11.0)
[2018-09-03 14:29] LABS: ATYPICAL LYMPHOCYTE 2 % (0.0-0.0); EOSINOPHIL 1 % (0.0-3.0); LYMPHOCYTE 89 % (22.0-35.0); NEUTROPHIL 7 % (50.0-70.0); PLATELET ESTIMATE LOW (NORMAL)
[2018-09-03 14:31] LABS: PLATELET COUNT MANUAL 93 K/mm3 (120-450)
[2018-09-03 14:44] LABS: ALB/GLOB RATIO 1.7 (1.1-1.8); ALBUMIN 3.7 g/dL (3.0-4.8); ALT/SGPT 22 U/L (7-56); AST/SGOT 22 U/L (17-59); BLOOD UREA NITROGEN 17 mg/dL (7-21); CALCIUM 8.5 mg/dL (8.4-10.5); GFR NON-AFRICAN AMERICAN > 60
[2018-09-04] MEDS: Sodium Chloride 0.9% 1,000 ML IV SCH ×2 (00:29→17:59)
[2018-09-04] MEDS: Pantoprazole 40 mg EC Tab PO SCH (05:26)
[2018-09-04 06:59] LABS: BASO # 0.07 K/mm3 (0.0-2.0); BASO % 0.2 % (0.0-3.0); EOS # 0.1 (0.0-0.7)
[2018-09-04 07:03] LABS: EOS % 0.3 % (1.5-5.0); GRAN # 1.98 (1.4-6.5); GRAN % 5.2 % (50.0-68.0); HEMOGLOBIN 10.9 g/dL (14.0-18.0); LYMPH # 34.3 (1.2-3.4); LYMPH % 91.2 % (22.0-35.0); MEAN CORPUSCULAR HEMOGLOBIN 31.5 pg (25.0-35.0); MEAN CORPUSCULAR HGB CONC 32.2 g/dl (31.0-37.0); MEAN PLATELET VOLUME 10.6 fl (7.0-11.0); MONO # 1.2 (0.1-0.6); MONO % 3.1 % (1.0-6.0); RBC 3.46 10^6/uL (3.5-6.1); RED CELL DISTRIBUTION WIDTH 14.8 % (11.5-14.5)
[2018-09-04 07:11] LABS: ALB/GLOB RATIO 1.6 (1.1-1.8); ALBUMIN 3.3 g/dL (3.0-4.8); ALT/SGPT 24 U/L (7-56); AST/SGOT 23 U/L (17-59); BLOOD UREA NITROGEN 18 mg/dL (7-21); CALCIUM 8.7 mg/dL (8.4-10.5); GFR NON-AFRICAN AMERICAN > 60
[2018-09-04 07:24] LABS: WHITE BLOOD COUNT 37.7 10^3/uL (4.5-11.0)
--- NOTE | 2018-09-04 10:42 | CP.PCM.PN ---
Subjective - Date & Time of Evaluation Date of Evaluation: 09/04/18 Time of Evaluation: 06:55 - Subjective Subjective: For stress test today, Awake, alert, no distress, Reason for consultation:Cardiac evaluation of syncopal episode with dizziness,Hi story of hypertension, hyperlipidemia, CLL. Seen and examined by me and Dr. Silva Objective - Vital Signs/Intake and Output Vital Signs (last 24 hours): Temp Pulse Resp BP Pulse Ox 97.8 F 48 L 18 148/66 99 09/04/18 06:00 09/04/18 06:00 09/04/18 06:00 09/04/18 06:00 09/04/18 06:00 Intake and Output: 09/04/18 09/04/18 06:59 18:59 Intake Total 820 Balance 820 - Medications Medications: Current Medications Aspirin (Ecotrin) 81 mg PO DAILY [facility] Last Admin: 09/03/18 10:37 Dose: 81 mg Atorvastatin Calcium (Lipitor) 40 mg PO DIN [facility] Last Admin: 09/03/18 18:12 Dose: 40 mg Enoxaparin Sodium (Lovenox) 40 mg SC DAILY [facility]; Protocol Last Admin: 09/03/18 10:37 Dose: 40 mg Finasteride (Proscar) 5 mg PO DAILY [facility] Sodium Chloride (Sodium Chloride 0.9%) 1,000 mls @ 60 mls/hr IV .[id number] [facility] Last Admin: 09/04/18 00:29 Dose: Not Given Levothyroxine Sodium (Synthroid) 25 mcg PO 0600 [facility] Mupirocin (Bactroban Ointment) 0 gm TOP BID [facility] Last Admin: 09/03/18 18:12 Dose: 1 applic Pantoprazole Sodium (Protonix Ec Tab) 40 mg PO 0600 [facility] Last Admin: 09/04/18 05:26 Dose: 40 mg Quetiapine Fumarate (Seroquel) 25 mg PO HS [facility]; Protocol Last Admin: 09/03/18 21:30 Dose: 25 mg Tamsulosin HCl (Flomax) 0.4 mg PO DAILY [facility] - Labs Labs: 09/04/18 06:00 09/04/18 06:00 PT 11.3 SECONDS (9.4-12.5) 09/01/18 19:15 INR 0.99 09/01/18 19:15 APTT 28.7 Seconds (25.1-36.5) 09/01/18 19:15 - Constitutional Appears: Non-toxic, No Acute Distress - Head Exam Head Exam: NORMAL INSPECTION, NORMOCEPHALIC - Eye Exam Eye Exam: Normal appearance Pupil Exam: NORMAL ACCOMODATION - ENT Exam ENT Exam: Mucous Membranes Moist - Respiratory Exam Respiratory Exam: Decreased Breath Sounds, Clear to Ausculation Bilateral, NORMAL BREATHING PATTERN - Cardiovascular Exam Cardiovascular Exam: REGULAR RHYTHM, +S1, +S2 - GI/Abdominal Exam GI & Abdominal Exam: Soft, Normal Bowel Sounds - Extremities Exam Extremities Exam: Full ROM, Normal Capillary Refill - Neurological Exam Neurological Exam: Alert, Awake, Oriented x3 - Psychiatric Exam Psychiatric exam: Normal Affect, Normal Mood - Skin Skin Exam: Normal Color, Warm Assessment and Plan - Assessment and Plan (Free Text) Assessment: An 82 year old male who came in to the ER due to dizziness and lightheadedness almost having a syncopal episode. Complaints of tinnitus of right ear and recently had removal of impacted cerumen on right ear.History of hypertension, hyperlipidemia, CLL (no treatment). Denies chest pain or shortness of breath.CT of head no bleeding. Positive for orthostatic hypotension, No previous cardiac work up at [facility]Holter monitor for bradycardia, Echo done- normal LV size, LVEF 70-75%, moderately dilated RV, moderately reduced RV systolic function,, Trace aortic regurgitation,mild mitral regurgitation, moderate tricuspid regurgitation, moderate pulmonary hypertension. For stress test today. Plan: For Stress test today Repeat Orthostatic vital signs Heart rate sinus bradycardia 50's,(holter monitor) Will follow up Holter monitor results Controlled blood pressure On ASA 81 mg daily,Lipitor 40 mg daily,Proscar 5 mg daily, Synthroid 25 mcg daily,Flomax 0.4 mg daily Continue IV hydration Oncology work up for CLL in progress Continue current treatment Continue current medications Will follow up Chart reviewed Plan and treatment discussed with Dr. Silva
[2018-09-04] MEDS: Enoxaparin 40 mg Syringe SC SCH (11:10)
--- NOTE | 2018-09-04 12:27 | PN ---
DATE: 09/03/2018 SUBJECTIVE: Patient seems comfortable and he still has some dizziness, but no chest pain, no short of breath. Stress test is still pending. He has just got a time to, please be advised it is still for 09/03/2018. PHYSICAL EXAMINATION: VITAL SIGNS: Temperature is 98.9, heart rate 71, blood pressure 138/74, respirations 18, sat 99%. HEAD AND NECK: Normal. No JVD, no thyromegaly. CHEST: Clear bilaterally. CARDIAC: First sound and second sound normal. No murmur, rub or gallop. ABDOMEN: Soft, nontender. Patient has a large right inguinal hernia. EXTREMITIES: No edema. NEUROLOGICAL: Normal. Patient had carotid ultrasound, which was normal range. LABORATORY DATA: He has also blood work, which shows white count 46.6, hemoglobin 10.8, hematocrit 33.4, platelets 93,000. Chemistry shows sodium 140, potassium 4.2, BUN 17, creatinine 1.1, hemoglobin A1c 6.1. IMPRESSION AND PLAN: 1. Syncope, dizziness, workup still pending, seen by radio board operator and neurologist. Still waiting for the stress test results. 2. Patient does have a history of psychosis and continue Seroquel 25 mg every night. 3. Hypercholesterolemia, history of coronary artery disease. Continue followup with his radio board operator, stress test is pending. 4. Dehydration, chronic lymphocytic leukemia, continue IV fluids. We will get Dr. Juarez to follow after that. Patient may need to have medication for that. 5. Hypothyroidism. We will resume his Synthroid. Continue all other medications and we will follow up clinically. Patient currently on Bactroban for his local wound care in the left hand, aspirin 81 mg, Lipitor 40, Lovenox 40, Protonix 40, Seroquel 25 and IV fluids. We will add the Synthroid and use constipation medicine. Continue current therapy. Hany Ag MD
--- NOTE | 2018-09-04 15:18 | CP.PCM.PN ---
Subjective - Date & Time of Evaluation Date of Evaluation: 09/04/18 Time of Evaluation: 15:14 - Subjective Subjective: Hematology/Oncology Progress Note (Dr. Tran's Service) Patient seen and assessed at bedside. No acute events noted overnight. Patient denies any further complaints at this time including fevers, chills, headache, chest pain, SOB, abdominal pain, N/V/D/C, changes in urine output, skin changes or any numbness/tingling of any extremity. Objective - Vital Signs/Intake and Output Vital Signs (last 24 hours): Temp Pulse Resp BP Pulse Ox 98 F 73 18 132/63 99 09/04/18 12:00 09/04/18 12:00 09/04/18 12:00 09/04/18 12:00 09/04/18 06:00 Intake and Output: 09/04/18 09/04/18 06:59 18:59 Intake Total 820 Balance 820 - Medications Medications: Current Medications Aspirin (Ecotrin) 81 mg PO DAILY [facility] Last Admin: 09/04/18 11:11 Dose: 81 mg Atorvastatin Calcium (Lipitor) 40 mg PO DIN [facility] Last Admin: 09/03/18 18:12 Dose: 40 mg Enoxaparin Sodium (Lovenox) 40 mg SC DAILY [facility]; Protocol Last Admin: 09/04/18 11:10 Dose: 40 mg Finasteride (Proscar) 5 mg PO DAILY [facility] Last Admin: 09/04/18 11:11 Dose: 5 mg Sodium Chloride (Sodium Chloride 0.9%) 1,000 mls @ 60 mls/hr IV .[id number] [facility] Last Admin: 09/04/18 00:29 Dose: Not Given Levothyroxine Sodium (Synthroid) 25 mcg PO 0600 [facility] Mupirocin (Bactroban Ointment) 0 gm TOP BID [facility] Last Admin: 09/03/18 18:12 Dose: 1 applic Pantoprazole Sodium (Protonix Ec Tab) 40 mg PO 0600 [facility] Last Admin: 09/04/18 05:26 Dose: 40 mg Quetiapine Fumarate (Seroquel) 25 mg PO HS [facility]; Protocol Last Admin: 09/03/18 21:30 Dose: 25 mg Tamsulosin HCl (Flomax) 0.4 mg PO DAILY [facility] Last Admin: 11/08/18 11:10 Dose: 0.4 mg - Labs Labs: 09/04/18 06:00 09/04/18 06:00 PT 11.3 SECONDS (9.4-12.5) 09/01/18 19:15 INR 0.99 09/01/18 19:15 APTT 28.7 Seconds (25.1-36.5) 09/01/18 19:15 - Additional Findings Additional findings: - Constitutional Appears: Non-toxic, No Acute Distress - Head Exam Head Exam: ATRAUMATIC, NORMOCEPHALIC - Eye Exam Eye Exam: EOMI, PERRL - ENT Exam ENT Exam: Mucous Membranes Moist - Neck Exam Neck exam: Positive for: Full Rom, Normal Inspection. Negative for: Lymphadenopathy, Meningismus, Tenderness, Thyromegaly - Respiratory Exam Respiratory Exam: Clear to Auscultation Bilateral, NORMAL BREATHING PATTERN. absent: Accessory Muscle Use, Decreased Breath Sounds, Rhonchi, Wheezes, Respiratory Distress - Cardiovascular Exam Cardiovascular Exam: Bradycardia, REGULAR RHYTHM, +S1, +S2 - GI/Abdominal Exam GI & Abdominal Exam: Normal Bowel Sounds, Soft. absent: Tenderness - Extremities Exam Extremities exam: Negative for: calf tenderness - Neurological Exam Neurological exam: Alert, Oriented x3 - Psychiatric Exam Psychiatric exam: Normal Affect, Normal Mood - Skin Skin Exam: Dry, Warm Assessment and Plan - Assessment and Plan (Free Text) Assessment: 82 year old male with a past medical history significant for CLL, HTN, HLD, BPH and inguinal hernia who was admitted for dizziness and syncope for two days while at home. Hematology/Oncology was consulted for patients history of CLL and thrombocytopenia. Plan: -CT Head showed no acute ICA's -Carotid US showed bilateral 20-39% proximal ICA stenosis -2D Echocardiogram showed normal LV systolic function, normal LVEF, moderately reduced RV systolic dysfunction and moderate pHTN -Chest X-Ray showed no active disease -EKG showed NSR -WBC of 37.7 and Platelets of 101 today (09/04) -Flow cytometry, Zap70, IGHV gene mutation and heavy chain gene rearrangement studies as prognostic factors for CLL pending -Daily CBC's with differentials and manual platelet counts -Further recommendations as per Dr. Tran Patient seen and case discussed with attending, Dr. Tran. Jose Ramírez PGY2
--- NOTE | 2018-09-04 16:07 | CARD ---
APPROVED REPORT Date of service: 09/04/2018 Protocol: LEXISCAN Test Type: Lexiscan Sestamibi Stress Test Attending Physician: Dr. Trudi Silva Referring Physician: Dr. Hany Ag Test Indications: Chest Pain Height:5 ft 9 in Weight:143lbs Medications: Aspirin,Atorvastatin, Lovenox, Mupirocin,Protonix, Seroquel, Medical History: 82 y/o male. Hx of hpertension,high cholesterol, prostate problems and leukemia. Target HR: 136 bpm Resting ECG: normal Resting Heart Rate: 64 bpm Resting Blood Pressure: 120/60mmHg Submaximum (85%): 116 bpm PROCEDURE Pharmacologic stress testing was performed using 0.4mg per 5ml of regadenoson given intravenously over 7-10 seconds. Reversal agent aminophyline 100 mg, given intravenously for Dyspnea. POST EXERCISE Reason for Termination: Protocol completed Target HR: No Max HR: 69 bpm 70% of Maximum Predicted HR: 136 bpm Exercise duration: 00:52 min:sec, 0 Stage Exercise capacity: 1.0METs Max Blood Pressure: 120/60mmHg Blood Pressure response to exercise: normal resting BP - appropriate response Heart Rate response to exercise: appropriate Chest Pain: No, none Angina index: 0 Arrhythmia: No, none ST Change: No, none Deviation: 0 mm INTERPRETATION Stress EKG Conclusion: Negative IV Lexiscan for chest apin and Ischemia, Nuclear scan to follow, Signed by Trudi Silva Electronically Approved: 09/04/2018 10:31:26 EXAM: Thallium Perfusion STRESS/REST Stress Test Type: Pharmacologic Imaging Protocol At peak stress, the patient was injected intravenously with 4.03mCi of Tc-99 tetrofosmin after an infusion time of 0 minutes and 10 seconds. Gated Stress Spect was performed 05 minutes after intravenous Thallium injection. Delay rest spect was performed 200 minutes after intravenous Thallium injection. The images were gated to evaluate regional wall motion and calculate ventricular ejection fraction.Images were reconstructed using backfilter projection method in short horizontal and verticle long axis. Spect slices were generated. LV Perfusion The quality of the study is somewhat suboptimal due to significant breast attenuation on stress and rest studies. The left ventricle is within normal limits in size. The right ventricle is unremarkable. The lung uptake is normal. The distribution of tracer reveals moderately decreased perfusion involving distal anteroseptal , apical and inferior oneal on the stress study. The remainder of the LV myocardium is unremarkable. The rest myocardial perfusion study shows improvemento the defects. Wall Motion Gated wall motion study shows anteroseptal hypokinesis and paradoxical septal wall motion of the left ventricle. LVEF = 57%. Conclusion 1. Abnormal SPECT myocardial perfusion study. 2. Partially reversible, distal anteroseptal/ apical and inferior defects are suggestive of ischemia. 3. Normal overall LV function despite anteroseptal hypokinesis and paradoxical septal wall motion.
--- NOTE | 2018-09-04 18:28 | CARD ---
APPROVED REPORT Date of service: 09/04/2018 Reason for Test: SYNCOPE, WEAKNESS Hookup date: 2018-09-02 Scan date: 2018-09-04 Recording time: 23 HOUR 59 MIN Heart Rate Data Total Beats: [id number] Min HR: 42 BPM at 4:05AM Avg HR: 58 BPM Max HR: 82 BPM at 12:46PM Ventricular Ectopy Total VE Beats: 144 (0.2%) Single/Interp PVC: 144/0 Supraventricular Ectopy Total VE Beats: 10 (0.0%) Longest R-R: 1.8 sec at 4:41 AM Single PAC's: 10
[2018-09-04] MEDS: Mupirocin 2% Ointment 15 GM TUBE TOP SCH ×2 (18:56→18:57)
--- NOTE | 2018-09-04 20:45 | PN ---
DATE: 09/04/2018 REASON FOR CONSULTATION: History of CLL, history of hyperlipidemia, hypertension, admitted with dizziness, multiple risks of coronary artery disease, the patient underwent stress test that shows abnormal myocardial perfusion study, ejection fraction 57%, partial reversible distal anteroseptal need for suggestive of ischemia. Discussed with the patient, the patient agreed, and we will proceed with cardiac catheterization. The patient had echocardiography done yesterday, ejection fraction 70% to 75%, mild mitral regurgitation, moderate tricuspid regurgitation, RV systolic pressure of 67. We will review the Holter. We will start aspirin and Plavix. We will keep n.p.o. after 12 midnight for cardiac catheterization in the morning. We will give 300 loading Plavix now followed by 75 for morning and n.p.o. after midnight for cardiac catheterization. Thank you Dr. Ag for providing us the opportunity in taking care of the patient, Juni Virk. Trudi Silva MD cc: Hany Ag MD
[2018-09-05] MEDS: Pantoprazole 40 mg EC Tab PO SCH (06:54)
[2018-09-05] MEDS: Levothyroxine 25 MCG TAB PO SCH (06:54)
[2018-09-05] MEDS ORDERED: Iodixanol 320 MG/ML 200 ML BOTTLE IV ONE (06:58)
[2018-09-05] MEDS ORDERED: Iodixanol 320 MG/ML 100 ML BOTTLE IV ONE (06:58)
[2018-09-05] MEDS ORDERED: Nitroglycerin 50mg in D5W 50 MG/250 ML BOTTLE IV ONE (06:58)
[2018-09-05] MEDS ORDERED: Iohexol 350mgl/ml 50 ML ONE (06:58)
[2018-09-05] MEDS ORDERED: Lidocaine 2% Inj (20ml) ONE (06:58)
[2018-09-05] MEDS ORDERED: Phenylephrine 10 mg/ml Inj ONE (06:58)
[2018-09-05 07:10] LABS: BASO # 0.08 K/mm3 (0.0-2.0); BASO % 0.2 % (0.0-3.0); EOS # 0.2 (0.0-0.7); EOS % 0.4 % (1.5-5.0); GRAN # 2.14 (1.4-6.5); GRAN % 5.1 % (50.0-68.0); HEMOGLOBIN 10.9 g/dL (14.0-18.0); LYMPH # 38.5 (1.2-3.4); LYMPH % 92.5 % (22.0-35.0); MEAN CELL VOLUME 97.3 fl (80.0-105.0); MEAN CORPUSCULAR HEMOGLOBIN 32.2 pg (25.0-35.0); MEAN PLATELET VOLUME 10.6 fl (7.0-11.0); MONO # 0.7 (0.1-0.6); MONO % 1.8 % (1.0-6.0); RBC 3.39 10^6/uL (3.5-6.1); RED CELL DISTRIBUTION WIDTH 14.7 % (11.5-14.5)
[2018-09-05 07:34] LABS: ALB/GLOB RATIO 1.6 (1.1-1.8); ALBUMIN 3.2 g/dL (3.0-4.8); ALT/SGPT 29 U/L (7-56); AST/SGOT 33 U/L (17-59); BLOOD UREA NITROGEN 13 mg/dL (7-21); CALCIUM 8.8 mg/dL (8.4-10.5); GFR NON-AFRICAN AMERICAN > 60
[2018-09-05 07:41] LABS: WHITE BLOOD COUNT 41.6 10^3/uL (4.5-11.0)
[2018-09-05] MEDS ORDERED: Midazolam 2 MG/2 ML VIAL ONE (07:51)
[2018-09-05] MEDS ORDERED: Eptifibatide 20 mg/10mL Inj IVP ONE (08:09)
[2018-09-05] MEDS ORDERED: Sodium Chloride 0.9% 1,000 ML IV SCH (09:00)
--- NOTE | 2018-09-05 09:32 | CPOSTOP ---
DATE: 09/05/2018 CARDIOVASCULAR LAB POSTPROCEDURE NOTE DICTATING PHYSICIAN: Trudi Silva MD. FURNITURE ASSEMBLER: Tanisha infectious waste technician. TYPE OF ANESTHESIA: Moderate conscious sedation, total 1 mg of Versed, 50 of fentanyl given. PRE-PROCEDURE DIAGNOSES: Chest pain, abnormal stress test. PROCEDURE PERFORMED: Left heart catheterization and stenting of mid right coronary artery with right ventricular branch. FINDINGS: Multivessel coronary artery disease. FINAL DIAGNOSES: Left anterior descending total collateralized from right coronary artery, preserved left ventricular function. POSTPROCEDURE CONDITION: Postprocedure, the patient's condition is stable. VASCULAR ACCESS SITE: Right femoral artery. CLOSURE DEVICE: Angio-Seal. TOTAL RADIATION DOSE: 31975.0 milligray unit. TOTAL FLUORO TIME: 11.1 minutes. Trudi Silva MD
[2018-09-05] MEDS: Mupirocin 2% Ointment 15 GM TUBE TOP SCH ×2 (10:26→17:03)
--- NOTE | 2018-09-05 10:26 | CARD ---
APPROVED REPORT Date of service: 09/05/2018 EKG Measurement Heart [id number] MD [id number] <Conclusion> Sinus bradycardia Possible Left atrial enlargement Left [place].
--- NOTE | 2018-09-05 11:40 | PN ---
DATE: 09/04/2018 SUBJECTIVE: This is an 82-year-old male who came into the hospital with syncope. The patient had a stress test done today. He has no chest pain at this time. He still has some vertigo. PHYSICAL EXAMINATION: VITAL SIGNS: Temperature 98, heart rate 76, blood pressure 134/63, respiration 18. HEAD AND NECK: Normal. No JVD. No thyromegaly. CHEST: Clear bilaterally. CARDIAC: First sound and second sound normal. No murmur, rub or gallop. ABDOMEN: Soft. Large and huge right inguinal hernia. EXTREMITIES: No edema. NEUROLOGIC: Normal. LABORATORY STUDY: Shows white count 37.7, hemoglobin 10.9, hematocrit 33.9 and platelets 101. Chemistry shows sodium 142, potassium 4.4, chloride 116, bicarb 27, BUN 18, creatinine 1. Liver function test is normal. The patient had a nuclear stress test, which came back positive. IMPRESSION AND PLAN: 1. Positive cardiac stress test. The patient does have history of coronary artery disease, may need a cardiac cath to be done and we will follow up clinically. We will consider other associated illnesses with respect to other medical problems. 2. Chronic lymphocytic leukemia. Oncology consult. We will discuss with him above any medication to slow down the process. 3. The patient has history of pre-psychotic and seems to be doing okay with Seroquel. He has no more problem with that. Sleep good. 4. Constipation. The patient will need a colonoscopy if he agree of that, first cardiac catheterization fixing his coronary. 5. Hypothyroidism, stable. Continue levothyroxine. 6. Prostate enlargement. Continue finasteride and Flomax. PLAN: Continue current therapy for now. Follow up clinically. Continue IV fluid. Hany Ag MD
[2018-09-05 13:00] LABS: BASO # 0.07 K/mm3 (0.0-2.0); BASO % 0.2 % (0.0-3.0); EOS # 0.1 (0.0-0.7); EOS % 0.4 % (1.5-5.0); GRAN # 2.17 (1.4-6.5); GRAN % 5.3 % (50.0-68.0); HEMOGLOBIN 10.8 g/dL (14.0-18.0); LYMPH # 36.9 (1.2-3.4); LYMPH % 92.3 % (22.0-35.0); MEAN CELL VOLUME 98.5 fl (80.0-105.0); MEAN CORPUSCULAR HEMOGLOBIN 32.1 pg (25.0-35.0); MEAN CORPUSCULAR HGB CONC 32.6 g/dl (31.0-37.0); MEAN PLATELET VOLUME 10.1 fl (7.0-11.0); MONO # 0.7 (0.1-0.6); MONO % 1.8 % (1.0-6.0); RBC 3.36 10^6/uL (3.5-6.1); RED CELL DISTRIBUTION WIDTH 14.8 % (11.5-14.5)
[2018-09-05 13:02] LABS: BLOOD UREA NITROGEN 12 mg/dL (7-21); CALCIUM 8.6 mg/dL (8.4-10.5); GFR NON-AFRICAN AMERICAN > 60
--- NOTE | 2018-09-05 15:49 | CT ---
Date of service: 09/05/2018 PROCEDURE: CT Abdomen and Pelvis with and without intravenous contrast HISTORY: CLL staging;3 phase liver protocol on liver during COMPARISON: None. TECHNIQUE: Axial images of the abdomen were obtained in the pre contrast, portal venous and delayed phases of enhancement. Coronal and sagittal reformats were generated. Contrast dose: 150 cc of Omni 350 Radiation dose: Total exam DLP = 852.24 mGy-cm. This CT exam was performed using one or more of the following dose reduction techniques: Automated exposure control, adjustment of the mA and/or kV according to patient size, and/or use of iterative reconstruction technique. FINDINGS: LOWER THORAX: Unremarkable. LIVER: Unremarkable. No gross lesion or ductal dilatation. GALLBLADDER AND BILE DUCTS: Unremarkable. PANCREAS: Unremarkable. No gross lesion or ductal dilatation. SPLEEN: There is splenomegaly with the spleen measuring 16 cm in height by 12 cm AP by 5.6 cm wide. ADRENALS: Unremarkable. No mass. KIDNEYS AND URETERS: Kidneys are unremarkable VASCULATURE: Unremarkable. No aortic aneurysm. Aortic calcifications BOWEL: Large bilateral inguinal lymph nodes are seen which contains loops of large and small bowel. The right-sided hernia measures 8 cm in diameter and the left side 13 cm APPENDIX: Normal appendix. PERITONEUM: Unremarkable. No free fluid. No free air. LYMPH NODES: Multiple mildly enlarged retroperitoneal lymph nodes are seen. BLADDER: Unremarkable. REPRODUCTIVE: Unremarkable. BONES: No acute fracture. OTHER FINDINGS: None. IMPRESSION: Severe splenomegaly. Mild retroperitoneal adenopathy. Large bilateral inguinal hernias without obstruction
--- NOTE | 2018-09-05 15:53 | CT ---
Date of service: 09/05/2018 PROCEDURE: CT Chest with contrast HISTORY: CLL STAGING COMPARISON: None available. TECHNIQUE: Contiguous axial images were obtained through the chest with intravenous contrast enhancement. Sagittal and coronal reconstructions were performed. IV contrast: Radiation dose: Total exam DLP = 277.97 mGy-cm. This CT exam was performed using one or more of the following dose reduction techniques: Automated exposure control, adjustment of the mA and/or kV according to patient size, and/or use of iterative reconstruction technique. FINDINGS: LUNGS: Clear lungs. Visualized airway clear. MEDIASTINUM: Unremarkable thoracic aorta. No aneurysm or dissection. Normal sized heart. Main pulmonary artery unremarkable. No vascular congestion. No lymphadenopathy. Extensive aortic calcification coronary artery calcifications PLEURA: No pleural fluid. No pneumothorax. BONES: Degenerative changes are seen with anterior osteophytes and ossification of the anterior longitudinal ligament UPPER ABDOMEN: Grossly unremarkable. OTHER FINDINGS: None. IMPRESSION: Unremarkable contrast enhanced CT of the chest.
--- NOTE | 2018-09-05 16:04 | CARD ---
APPROVED REPORT Date of service: 09/05/2018 Procedure(s) performed: Left Heart Catheterization PTCA with Stentingof Mid RCA to RV Marginal Br with LOUISE HISTORY The patient is a 82 year-old male with a history of : most recent EF: 57%. (EF Method: RADIONUCLIDE), hypertension , dyslipidemia , Admitted with Dizzyness, near syncope and abnormal stress test. INDICATION The indication(s) include : positive stress test. CASE TECHNIQUE The patient was brought urgently to the Cardiac Catheterization Laboratory in a fasting state and was prepped and draped in a sterile manner. The right femoral groin was infiltrated with 2% Lidocaine subcutaneous anesthesia. A 6 Fr x 11 cm Lisa sheath was inserted into the right femoral artery without difficulty. Coronary angiography was performed using coronary diagnostic catheters. The left coronary system was accessed and visualized with a Diagnostic , 5F JL 4 CATH DXT 100 CM catheter. The right coronary system was accessed and visualized with a Diagnostic ,5F JR 4 CATH DXT 100 CM catheter. The left ventricle was accessed and visualized with a 5F PIGTAIL 145 CATH DXT 110 CM catheter. Left ventricular/Aortic Valve gradient assessed on pullback. Left ventriculogram was performed in [place] projection. Closure device was deployed with a 6 Fr Angio-Seal without any complications. The patient tolerated the procedure well and there were no complications associated with the procedure. Vessel Analysis The patient's coronary anatomy is right dominant. The left main coronary artery is a medium size vessel with diffuse calcification noted throughout this vessel and without significant stenosis. The left main bifurcates to the left anterior descending and circumflex. The left anterior descending artery is a medium size vessel with diffuse calcification noted throughout this vessel and with significant stenosis. There is a 100% stenosis in the mid segment. The first diagonal branch is a medium size vessel with diffuse calcification noted throughout this vessel and without significant stenosis. The circumflex artery is a large size vessel with diffuse calcification noted throughout this vessel and without significant stenosis. There is a 60-70% stenosis in the proximal segment. The first obtuse marginal branch is a medium size vessel with diffuse calcification noted throughout this vessel and without significant stenosis. The second obtuse marginal branch is a large size vessel with diffuse calcification noted throughout this vessel and without significant stenosis. There is a 60% stenosis in the proximal segment. The third obtuse marginal branch is a medium size vessel with diffuse calcification noted throughout this vessel and without significant stenosis. The right coronary artery is a medium size vessel with diffuse calcification noted throughout this vessel and with significant stenosis. There is a 100% stenosis in the mid segment. 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 Large RV marginal Branch arising from Mid RCA at CERTIFIED INCOME TAX PREPARER site and gives large colaterals to LAD, has 99% ostial stenosis.Distal RCA and R PDA are themselves getting collaterals fronmCX Left Ventricle The left ventricle is normal in size with normal contractility. There was no cardiomyopathy. The left ventricular ejection fraction is estimated to be 55-60%. The left ventricular end diastolic pressure is 20 mmHg. There was no gradient across the aortic valve upon pullback. PCI Technique Lesion Anticoagulation was achieved with Heparin and two bolluses of integrellin. Percutaneous coronary intervention was performed on the mid right coronary artery to Rv marginal branch. The lesion stenosis prior to intervention was 99% with TONY 2 flow. A 6 Fr JR 3.5 Guide Catheter was used to engage the ostium. A Luge 182 Interventional Guidewire was used to cross the lesion. BALLOON DILATION A Balloon catheter 2.0 x 8 mm Mini Trek RX was inserted and inflated up to 8.00atm for 11seconds. STENT DEPLOYMENT A drug-eluting stent STENT RESOLUTE FERNANDA 2.0 X12 was inserted and inflated up to 16.00atm for 8seconds. Used Choice Pt as a Budy wire to take stent down POST STENT DEPLOYMENT BALLOON DILATION A Balloon catheter 2.75 x 8 mm Trek RX NC was inserted and inflated up to 14.00atm for 10seconds. Final angiography reveals 0 % stenosis with TONY 3 flow. Conclusion Mid LAD and Mid RCA Occulded (CERTIFIED INCOME TAX PREPARER) A large RV Marginal Br gives collateral to Entire LAD which has 99% ostial stenosis. Distal RCA and R PDA is getting collaterals fron Cx. Preserved LV fx,EF-55-60%, EDP-20 mmof Hg. Successful PTCA with LOUISE of Mid RCA to Ostial RV marginal Br woith LOUISE. Recommendations Daily ASA with Plavix for at least one year Aggressive Medical TherapyCardiac Risk Reduction Program CC; Dr. Ag / danika.
--- NOTE | 2018-09-05 16:06 | CP.PCM.PN ---
<Jose Ramírez - Last Filed: 09/05/18 16:00> Subjective - Date & Time of Evaluation Date of Evaluation: 09/05/18 Time of Evaluation: 06:00 - Subjective Subjective: Hematology/Oncology Progress Note (Dr. Tran's Service) Patient seen and assessed at bedside. No acute events noted overnight. Patient to have cardiac cath done this AM. Patient denies any further complaints at this time including fevers, chills, headache, chest pain, SOB, abdominal pain, N/V/D/C, changes in urine output, skin changes or any numbness/tingling of any extremity. Objective - Vital Signs/Intake and Output Vital Signs (last 24 hours): Temp Pulse Resp BP Pulse Ox 97.7 F 74 18 149/54 L 97 09/05/18 11:27 09/05/18 15:00 09/05/18 15:00 09/05/18 15:00 09/05/18 05:54 Intake and Output: 09/05/18 09/05/18 06:59 18:59 Intake Total 1320 Output Total 300 Balance 1020 - Medications Medications: Current Medications Aspirin (Ecotrin) 81 mg PO DAILY [facility] Last Admin: 09/05/18 10:27 Dose: Not Given Atorvastatin Calcium (Lipitor) 40 mg PO DIN [facility] Last Admin: 09/04/18 17:56 Dose: 40 mg Clopidogrel Bisulfate (Plavix) 75 mg PO DAILY [facility] Last Admin: 09/05/18 10:27 Dose: Not Given Finasteride (Proscar) 5 mg PO DAILY [facility] Last Admin: 09/05/18 10:27 Dose: 5 mg Sodium Chloride (Sodium Chloride 0.9%) 1,000 mls @ 60 mls/hr IV .[id number] [facility] Last Admin: 09/04/18 17:59 Dose: 60 mls/hr Levothyroxine Sodium (Synthroid) 25 mcg PO 0600 [facility] Last Admin: 09/05/18 06:54 Dose: 25 mcg Mupirocin (Bactroban Ointment) 0 gm TOP BID [facility] Last Admin: 09/05/18 10:26 Dose: Not Given Pantoprazole Sodium (Protonix Ec Tab) 40 mg PO 0600 [facility] Last Admin: 09/05/18 06:54 Dose: 40 mg Quetiapine Fumarate (Seroquel) 25 mg PO [facility]; Protocol Last Admin: 09/04/18 21:07 Dose: 25 mg Tamsulosin HCl (Flomax) 0.4 mg PO DAILY [facility] Last Admin: 09/05/18 10:27 Dose: 0.4 mg - Labs Labs: 09/05/18 12:50 09/05/18 12:50 PT 11.3 SECONDS (9.4-12.5) 09/01/18 19:15 INR 0.99 09/01/18 19:15 APTT 28.7 Seconds (25.1-36.5) 09/01/18 19:15 - Additional Findings Additional findings: - Constitutional Appears: Non-toxic, No Acute Distress - Head Exam Head Exam: ATRAUMATIC, NORMOCEPHALIC - Eye Exam Eye Exam: EOMI, PERRL - ENT Exam ENT Exam: Mucous Membranes Moist - Neck Exam Neck exam: Positive for: Full Rom, Normal Inspection. Negative for: Lymphadenopathy, Meningismus, Tenderness, Thyromegaly - Respiratory Exam Respiratory Exam: Clear to Auscultation Bilateral, NORMAL BREATHING PATTERN. absent: Accessory Muscle Use, Decreased Breath Sounds, Rhonchi, Wheezes, Respiratory Distress - Cardiovascular Exam Cardiovascular Exam: Bradycardia, REGULAR RHYTHM, +S1, +S2 - GI/Abdominal Exam GI & Abdominal Exam: Normal Bowel Sounds, Soft. absent: Tenderness - Extremities Exam Extremities exam: Negative for: calf tenderness - Neurological Exam Neurological exam: Alert, Oriented x3 - Psychiatric Exam Psychiatric exam: Normal Affect, Normal Mood - Skin Skin Exam: Dry, Warm Assessment and Plan - Assessment and Plan (Free Text) Assessment: 82 year old male with a past medical history significant for CLL, HTN, HLD, BPH and inguinal hernia who was admitted for dizziness and syncope for two days while at home. Hematology/Oncology was consulted for patients history of CLL and thrombocytopenia. 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 Tran Disposition: Will need bone marrow biopsy at some point in the near future for further CLL vs. Mantle Cell Lymphoma workup. Patient seen and case discussed with attending, Dr. Tran. Jose Ramírez PGY2 <Josue Tran P - Last Filed: 09/07/18 14:16> Objective - Vital Signs/Intake and Output Vital Signs (last 24 hours): Temp Pulse Resp BP Pulse Ox 98.5 F 79 17 156/72 H 98 09/07/18 12:00 09/07/18 12:00 09/07/18 12:00 09/07/18 12:00 09/07/18 06:00 Intake and Output: 09/07/18 09/07/18 06:59 18:59 Intake Total 640 Output Total 400 Balance 240 - Medications Medications: Current Medications Aspirin (Ecotrin) 81 mg PO DAILY [facility] Last Admin: 09/07/18 10:08 Dose: 81 mg Atorvastatin Calcium (Lipitor) 40 mg PO DIN [facility] Last Admin: 09/06/18 18:11 Dose: 40 mg Clopidogrel Bisulfate (Plavix) 75 mg PO DAILY [facility] Last Admin: 09/07/18 10:08 Dose: 75 mg Finasteride (Proscar) 5 mg PO DAILY [facility] Last Admin: 09/07/18 10:08 Dose: 5 mg Levothyroxine Sodium (Synthroid) 50 mcg PO 0600 [facility] Last Admin: 09/07/18 05:01 Dose: 50 mcg Mirtazapine (Remeron) 15 mg PO HS [facility] Last Admin: 09/06/18 21:25 Dose: 15 mg Mupirocin (Bactroban Ointment) 0 gm TOP BID [facility] Last Admin: 09/07/18 10:09 Dose: 1 applic Nystatin (Nystatin Oral Susp) 5 ml PO QID [facility] Last Admin: 09/07/18 10:08 Dose: 5 ml Pantoprazole Sodium (Protonix Ec Tab) 40 mg PO 0600 [facility] Last Admin: 09/07/18 05:01 Dose: 40 mg Polyethylene Glycol (Miralax) 17 gm PO BID [facility] Quetiapine Fumarate (Seroquel) 25 mg PO HS [facility]; Protocol Last Admin: 09/06/18 21:24 Dose: 25 mg Tamsulosin HCl (Flomax) 0.4 mg PO DAILY [facility] Last Admin: 09/07/18 10:08 Dose: 0.4 mg - Labs Labs: 09/07/18 07:00 09/07/18 07:00 PT 11.3 SECONDS (9.4-12.5) 09/01/18 19:15 INR 0.99 09/01/18 19:15 APTT 28.7 Seconds (25.1-36.5) 09/01/18 19:15 Attending/Attestation - Attestation I have personally seen and examined this patient.: Yes I have fully participated in the care of the patient.: Yes I have reviewed all pertinent clinical information, including history, physical exam and plan: Yes
[2018-09-05] MEDS: Nystatin 100,000 Units/ml Oral Susp 5 ml UD PO SCH ×2 (17:03→22:00)
[2018-09-05] MEDS: Sodium Chloride 0.9% 1,000 ML IV SCH (20:04)
[2018-09-06] MEDS: Sodium Chloride 0.9% 1,000 ML IV SCH ×2 (05:04→19:00)
[2018-09-06] MEDS: Levothyroxine 25 MCG TAB PO SCH (05:04)
[2018-09-06] MEDS: Pantoprazole 40 mg EC Tab PO SCH (05:04)
[2018-09-06 07:56] LABS: BASO # 0.07 K/mm3 (0.0-2.0); BASO % 0.2 % (0.0-3.0); EOS # 0.2 (0.0-0.7); EOS % 0.4 % (1.5-5.0); GRAN # 2.13 (1.4-6.5); GRAN % 5.6 % (50.0-68.0); HEMOGLOBIN 10.5 g/dL (14.0-18.0); LYMPH # 35.3 (1.2-3.4); LYMPH % 92.1 % (22.0-35.0); MEAN CELL VOLUME 97.2 fl (80.0-105.0); MEAN CORPUSCULAR HEMOGLOBIN 32.2 pg (25.0-35.0); MEAN CORPUSCULAR HGB CONC 33.1 g/dl (31.0-37.0); MEAN PLATELET VOLUME 10.2 fl (7.0-11.0); MONO # 0.7 (0.1-0.6); MONO % 1.7 % (1.0-6.0); RBC 3.26 10^6/uL (3.5-6.1); RED CELL DISTRIBUTION WIDTH 14.7 % (11.5-14.5)
[2018-09-06 08:07] LABS: WHITE BLOOD COUNT 38.3 10^3/uL (4.5-11.0)
[2018-09-06 08:17] LABS: ALB/GLOB RATIO 1.6 (1.1-1.8); ALBUMIN 3.3 g/dL (3.0-4.8); ALT/SGPT 25 U/L (7-56); AST/SGOT 23 U/L (17-59); BLOOD UREA NITROGEN 11 mg/dL (7-21); CALCIUM 8.7 mg/dL (8.4-10.5); GFR NON-AFRICAN AMERICAN > 60
--- NOTE | 2018-09-06 08:46 | CARD ---
APPROVED REPORT Date of service: 09/06/2018 EKG Measurement Heart [id number] <Conclusion> Sinus rhythm with frequent premature ventricular complexes Otherwise normal ECG
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
[2018-09-06] MEDS: Nystatin 100,000 Units/ml Oral Susp 5 ml UD PO SCH ×4 (09:44→21:25)
[2018-09-06] MEDS: Mupirocin 2% Ointment 15 GM TUBE TOP SCH ×2 (09:46→18:15)
--- NOTE | 2018-09-06 14:21 | CON ---
DATE: 09/06/2018 HISTORY OF PRESENT ILLNESS: The patient is an 82-year-old white male with no formal psychiatric history per patient, who has been on the medical floor with coronary artery disease, status post cardiac cath. He states he has been generally doing well. Psychiatry was consulted apparently because the patient has a history of psychosis, although this is unclear. I have met with the patient at bedside and he appears unkempt; however, he is alert and oriented to month, year, location, and circumstances. His thought process is fairly coherent and he is cooperative with my questioning and generally remains pleasant. His affect is anxious and he has been anxious because of the medical issues going on. However, he is hopeful and denies any depression, although he finds that the surroundings are depressing. He wants to live and plans to cooperate with his treatment team in this respect. He denies having any hallucinations and he does not appear to be responsive to internal stimuli and delusions were not elicited. He does anxiety. He also reports that he has had difficulty sleeping since he is in the hospital. Generally, although Seroquel has been beneficial from before, it has not been as beneficial while he has been hospitalized. Personally, he made some good control and there have been no behavioral issues. Labs and vitals were reviewed. Relevant psychiatric medications are Seroquel 25 mg p.o. at bedtime. IMPRESSION: Adjustment disorder with depression and anxiety. RECOMMENDATIONS: The patient is psychiatrically cleared. He may continue with Seroquel, though its cardiovascular risks are probably very low at such a low dose of 25 mg. I recalled that this medication's maximum dosing is 800 mg. I will not change his medication at this time unless he continues to have issues with sleep after he has been discharged, concerning his current environment and his circumstances have been anxiety provoking. Psychiatry will sign off at this time. The patient to consult p.r.n. Garett Jennings MD
[2018-09-07] MEDS: Pantoprazole 40 mg EC Tab PO SCH (05:01)
[2018-09-07] MEDS ORDERED: Levothyroxine 50 MCG TAB PO SCH (06:00)
[2018-09-07 06:10] VITALS: O2SAT 98
[2018-09-07 07:38] LABS: ALB/GLOB RATIO 1.6 (1.1-1.8); ALBUMIN 3.4 g/dL (3.0-4.8); ALT/SGPT 30 U/L (7-56); AST/SGOT 27 U/L (17-59); BLOOD UREA NITROGEN 13 mg/dL (7-21); CALCIUM 9.1 mg/dL (8.4-10.5); GFR NON-AFRICAN AMERICAN > 60
[2018-09-07 07:41] LABS: BASO # 0.06 K/mm3 (0.0-2.0); BASO % 0.2 % (0.0-3.0); EOS # 0.2 (0.0-0.7); EOS % 0.5 % (1.5-5.0); GRAN # 1.93 (1.4-6.5); LYMPH # 29.1 (1.2-3.4); LYMPH % 91.2 % (22.0-35.0); MEAN CELL VOLUME 97.7 fl (80.0-105.0); MEAN CORPUSCULAR HEMOGLOBIN 31.9 pg (25.0-35.0); MEAN CORPUSCULAR HGB CONC 32.6 g/dl (31.0-37.0); MEAN PLATELET VOLUME 10.1 fl (7.0-11.0); MONO # 0.7 (0.1-0.6); MONO % 2.1 % (1.0-6.0); PLATELET COUNT 82 10^3/uL (120.0-450.0); RBC 3.45 10^6/uL (3.5-6.1); RED CELL DISTRIBUTION WIDTH 14.7 % (11.5-14.5)
[2018-09-07 07:47] LABS: WHITE BLOOD COUNT 31.9 10^3/uL (4.5-11.0)
[2018-09-07] MEDS: Nystatin 100,000 Units/ml Oral Susp 5 ml UD PO SCH ×2 (10:08→14:44)
[2018-09-07] MEDS: Mupirocin 2% Ointment 15 GM TUBE TOP SCH (10:09)
[2018-09-07 10:34] LABS: ANISOCYTOSIS SLIGHT; ATYPICAL LYMPHOCYTE 3 % (0.0-0.0); HYPOCHROMIA SLIGHT; LYMPHOCYTE 90 % (22.0-35.0); MONOCYTE 5 % (1.0-6.0); NEUTROPHIL 2 % (50.0-70.0); PLATELET ESTIMATE LOW (NORMAL)
[2018-09-07 13:34] VITALS: BP 156/72; RESP 17; TEMP 98.5
[2018-09-07 15:46] VITALS: PULSE 84
[2018-09-07] MEDS ORDERED: POLYETHYLENE GLYCOL 3350 17 GM/Dose PACKET PO SCH (18:00)
--- NOTE | 2018-09-07 19:30 | PN ---
DATE: 09/07/2018 This is [facility] visit on the telemetry floor. For Dr. Tran. SUBJECTIVE: The patient is an 82-year-old male seen sitting up in his chair after recent stenting by Dr. Silva for ASCVD with blockages noted on yesterday's dictation, which is unfortunately not on the patient's chart available for review at this time. The patient is at present reporting that his cheat comfort has significantly improved since yesterday as it was status post procedure the day prior. He is know to suffer from CLL/questionable mantle cell lymphoma and was lost to follow up with his cousin assisting with the patient's followup care. He is advised to be on aspirin and Plavix for at least [address] Silva and has significant splenomegaly and bilateral inguinal hernia noted on his recent testing. If possible a bone marrow biopsy would be indicated for definitive diagnosis of his blood disorder. At present, he is without complaint with his platelets now improved to 82,000 and the white blood cell count now 31,000 down to 38,000 yesterday. PHYSICAL EXAMINATION: VITAL SIGNS: Temperature 98.5, pulse 84, respirations 17, blood pressure 156/72, pulse ox 98%. HEENT: Unremarkable. NECK: Supple. HEART: Regular rate. LUNGS: Clear. ABDOMEN: Soft, nontender. EXTREMITIES: No edema. SKIN: Warm and dry. NEUROLOGIC: Awake and alert. The patient was just evaluated by Dr. Jennings, psychiatrist with adjusted disorder with depression and anxiety diagnosed. LABORATORY DATA: The patient had a EKG done yesterday was read as sinus rhythm with frequent PVCs. This is being addressed by Dr. Silva his electric wheelchair repairer. The patient's labs were done, white blood cell count today of 31,900, hemoglobin 11, hematocrit 33.7, platelet count of 82,000. A chem metabolic panel was within normal range except for chloride of 111, total protein of 5.5. ASSESSMENT: The assessment for this patient is that of atherosclerotic cardiovascular disease status post catheterization with stenting. To continue on Plavix and aspirin for at least 1 year. Chronic lymphocytic leukemia/mantle cell lymphoma with consideration for biopsy as indicated with anticoagulation to be considered benefit versus risk. Severe splenomegaly, gastroesophageal reflux disease, hypothyroidism, benign prostatic hypertrophy, hyperlipidemia, adjustment disorder with depression and anxiety, inguinal hernia. PLAN: The plan for this patient after conversation with Dr. Tran is to continue his present medical regimen with monitoring clinically and with labs with the prognosis for this patient is guarded. This is a complex patient with a comprehensive medically necessary and appropriate visit carried out in excess of 20 minutes with the patient's questions answered to his satisfaction. Trey Gillette MD
--- NOTE | 2018-09-08 08:10 | PN ---
DATE: 09/06/2018 This is [facility] visit on the telemetry floor. For Dr. Tran. SUBJECTIVE: The patient is an 82-year-old male, seen sitting up in a chair, status post stenting as per Dr. Silva yesterday with good effect. Known to suffer from CLL/questionable mantle cell lymphoma, which the patient reports he has had for years with the patient now complaining of insomnia last night after his stenting procedure. He is being followed for the above, also with thrombocytopenia and leukocytosis, which is being monitored. As per Dr. Silva, the patient needs to be on aspirin and Plavix for a year with a bone marrow biopsy on hold at present for definitive diagnosis of his lymphoproliferative disorder. His recent EKG showed frequent PVCs and he continues to be monitored on telemetry. On recent testing, he was noted to have significant splenomegaly and bilateral inguinal hernias, both of which the patient reports he was aware. Otherwise, he is resting comfortably, in no acute distress, sitting in a chair at present. OBJECTIVE PHYSICAL EXAMINATION: VITAL SIGNS: Temperature 97.6, pulse 80, respirations 19, blood pressure 152/64, pulse ox 98%. HEENT: Unremarkable. NECK: Supple. HEART: Regular rate. LUNGS: Clear. ABDOMEN: Soft. EXTREMITIES: No edema. SKIN: Warm and dry. NEUROLOGIC: Awake and alert. LABORATORY DATA: The patient's labs were done. White blood cell count of 38,300, hemoglobin of 10.5, hematocrit of 31.7, platelet count of 75,000 with no active bleeding. No petechiae in the oropharynx appreciated. His chem metabolic panel showed a chloride of 109. Otherwise, normal chem panel. Total protein of 5.3. The patient had EKG done earlier today. It was read as sinus rhythm with frequent PVCs, otherwise normal EKG. A CT scan of his chest was done yesterday. It was read as unremarkable contrast-enhanced CT of the chest. He had a triple phase liver CT done yesterday. It showed severe splenomegaly. Mild retroperitoneal adenopathy, large bilateral inguinal hernias without obstruction. The patient had catheterization and stent placement yesterday by Dr. Silva for mild LAD, mild RCA which was occluded, a large RV marginal branch gives collateral to the entire LAD, which as 99% ostial stenosis. Distal RCA and RPDA are getting collaterals from circumflex. Preserved left ventricular function, ejection fraction 55-60%. EDP at 20 mmHg. Successful PTCA with LOUISE of mild RCA to ostial RV marginal branch with drug eluting stent. Recommendations are daily aspirin and Plavix for at least 1 year, aggressive medical therapy, cardiac risk reduction program. The patient's flow cytometric analysis was done, which shows positive B-cell lymphoma, intermediate between chronic lymphocytic leukemia and mantle cell lymphoma. Correlation with FISH is recommended. ASSESSMENT: The assessment for this patient is that of severe atherosclerotic cardiovascular disease, status post stenting; chronic lymphocytic leukemia versus mantle cell lymphoma; thrombocytopenia; hypertension; severe splenomegaly; abnormal EKG; insomnia; gastroesophageal reflux disease; hypothyroidism; benign prostatic hypertrophy. PLAN: Plan for this patient after conversation with Dr. Tran is to continue his present medical regimen with aspirin and Plavix with consideration for bone marrow biopsy with the knowledge that the patient needs to be on Plavix and aspirin for over a year's time as per Dr. Tran's recommendations. He is advised to be extra careful with activities due to his significant splenomegaly as he is in a controlled environment at this time with trauma to be avoided. We will monitor clinically and with labs. This is a complex patient with a comprehensive medically necessary and appropriate visit carried out in excess of 50 minutes with the patient's questions answered to his satisfaction. Trey Gillette MD
--- NOTE | 2018-09-08 08:11 | CP.PCM.PCO ---
Physician Communication Note - Physician Communication Note Physician Communication Note: psychiatric team signed off
--- NOTE | 2018-09-08 10:25 | PN ---
DATE: 09/06/2018 SUBJECTIVE: The patient doing well status post cardiac catheterization. Has no chest pain, no short of breath and doing very well. Head CT was done today and the patient seems better, dizziness is less and seems very good. PHYSICAL EXAMINATION: VITAL SIGNS: On 09/06/2018, temperature 98.6, heart rate 77, blood pressure 155/67, respirations 17, sat 94%. HEAD AND NECK: Normal. NECK: No JVD, no thyromegaly. CHEST: Clear bilaterally. CARDIAC: First sound and second sound normal. No murmur, rib or gallop. ABDOMEN: Soft, nontender. There is large inguinal hernia bilaterally, but the right one is huge. EXTREMITIES: No edema. NEUROLOGIC: Normal. LABORATORY DATA: Laboratory study on 09/06/2018, white count 38.3, hemoglobin 10.5, hematocrit 31.7, platelets 75. IMPRESSION AND PLAN: 1. Coronary artery disease, status post stent to right coronary artery, doing well. 2. Chronic lymphocytic leukemia with severe splenomegaly and retroperitoneal lymphadenopathy and we will discuss with Oncology about it. 3. Thrombocytopenia and anemia could be related to the chronic lymphocytic leukemia. The patient may need a bone marrow biopsy. However he is on antiplatelet therapy for now for the stent, may hold off on that at this time. We will discuss further with Oncology. 4. Vertigo. His workup for dizziness negative except the patient has vertigo, he is doing well with the meclizine he is getting. 5. Psychosis. History of prepsychosis in the past, seems doing okay with Seroquel, sleeping well in addition to Remeron 15 mg at bedtime. He is sleeping well, doing very well on that. We will continue current therapy. The patient also was seen by Dr. Jennings, psychiatrist for his condition and he is doing very well. Continue current therapy, follow up clinically and continue current medications for prostate and we will follow up clinically. The patient is stable. Hany Ag MD
--- NOTE | 2018-09-08 11:34 | DS ---
HISTORY OF PRESENT ILLNESS: The patient came to the hospital with vertigo. Carotid ultrasound is negative. CT of head is negative. Seen by Neurology, Dr. Rodriguez who ruled out any central nervous system problem or vascular event. The patient has varicose, given meclizine to see how he does. He seems to be responding very well. Cardiology consult is seeing the patient because he gets always some cardiac chest pain. He has a right coronary artery disease and was stented, on Plavix and aspirin. The patient has an echo that shows good LV function with [id number] pulmonary hypertension. The patient has CLL with some anemia and thrombocytopenia. The patient definitely will need colonoscopy. I told it is a complicated case because the patient has cardiac problem, CLL with low platelets and a large and huge hernia. We could not proceed with that as patient sometimes does not want, but we will gradually make him convinced to it when at that time. At this time, his anemia and thrombocytopenia most likely could be related to CLL, also iron-deficiency anemia. It is a possibility and the patient will accept to do an endoscopic procedure at this time and finally agreed to do the cardiac cath and stent placement. The patient part of the workup of CLL, had a CT which shows significant splenomegaly and some retroperitoneal lymphadenopathy. The patient also had a stress test which was positive and for that reason got a cardiac cath, seen by psychiatrist, which she said it is mild on anxiety due to being in the hospital and otherwise the patient is stable. She will continue Seroquel 25 mg at night. At this time, the patient seems stable, eating well, we added amiodarone at night and seems to be doing well with that. We will continue current therapy and patient with vertigo and unsteadiness, he will go to Transitional Care Unit for continuation of physical therapy. PHYSICAL EXAMINATION: VITAL SIGNS: His temperature 98, heart rate 70, blood pressure 130/47, respirations 18 and saturation 98%. HEAD AND NECK: Normal. No JVD. No thyromegaly. CHEST: Clear bilateral. CARDIAC: First sound and second sound normal. No murmur, rub or gallop. ABDOMEN: Soft and nontender. Large and huge right inguinal hernia more than left. NEUROLOGIC: Normal. LABORATORY DATA: Laboratory studies show white count 31.9, hemoglobin 11, hematocrit 33, platelets 82,000. The patient also had a chemistry which is done and shows sodium 144, potassium is 3.8, chloride 111, bicarb 29, BUN 13 and creatinine 1.1. Liver function test is normal. DISCHARGE DIAGNOSES: 1. Vertigo/dizziness. Continue meclizine. 2. Coronary artery disease with right carotid artery stenosis, status post stent placement. 3. Anemia. 4. Thrombocytopenia. 5. Chronic lymphocytic leukemia. 6. Anxiety. 7. History of, in the past, delusions that responded well to Seroquel and help him sleep and he was continued to be seen by Psychiatry is stable. 8. Prostate enlargement. 9. Huge, large inguinal more than left inguinal hernia. PLAN: The patient will be needing treatment of physical therapy, gait assistance and training because he lives alone and the risk for fall is high and also eventually he will go for hernia and colonoscopy and bone marrow biopsy. We will discuss further on discharge. Hany Ag MD
== END 2018-09-07 15:59 | DRG 149 ==
LOC: ED 17:03 → ERH 20:02 → 2RSO 21:06
PROVIDERS: ADMIT Internal Medicine; ATTEND Internal Medicine
DX: R42 Dizziness and giddiness (principal); C91.10 Chronic lymphocytic leukemia of B-cell type not having achieved remission; I25.10 Atherosclerotic heart disease of native coronary artery without angina pectoris; D64.9 Anemia, unspecified; D69.6 Thrombocytopenia, unspecified; N40.0 Benign prostatic hyperplasia without lower urinary tract symptoms; F22 Delusional disorders; E03.9 Hypothyroidism, unspecified; E78.00 Pure hypercholesterolemia, unspecified; E78.5 Hyperlipidemia, unspecified; E86.0 Dehydration; F06.4 Anxiety disorder due to known physiological condition; F43.23 Adjustment disorder with mixed anxiety and depressed mood; G47.00 Insomnia, unspecified; H93.11 Tinnitus, right ear; I08.1 Rheumatic disorders of both mitral and tricuspid valves; I10 Essential (primary) hypertension; I27.20 Pulmonary hypertension, unspecified; I65.21 Occlusion and stenosis of right carotid artery; I95.1 Orthostatic hypotension; K21.9 Gastro-esophageal reflux disease without esophagitis; K40.20 Bilateral inguinal hernia, without obstruction or gangrene, not specified as recurrent; K44.9 Diaphragmatic hernia without obstruction or gangrene; K59.00 Constipation, unspecified; Z79.02 Long term (current) use of antithrombotics/antiplatelets; Z79.899 Other long term (current) drug therapy; Z95.5 Presence of coronary angioplasty implant and graft

== ENCOUNTER 2018-09-07 15:59 | Inpatient (IN) | payer BC ==
[2018-09-07 16:39] VITALS: BMI 23.0
[2018-09-07] MEDS: Nystatin 100,000 Units/ml Oral Susp 5 ml UD PO SCH ×2 (17:25→21:05)
[2018-09-07] MEDS: Mupirocin 2% Ointment 15 GM TUBE TOP SCH (17:25)
[2018-09-08] MEDS: Levothyroxine 50 MCG TAB PO SCH (05:26)
[2018-09-08] MEDS: Pantoprazole 40 mg EC Tab PO SCH (05:27)
[2018-09-08] MEDS: Mupirocin 2% Ointment 15 GM TUBE TOP SCH ×2 (11:02→17:18)
[2018-09-08] MEDS: Nystatin 100,000 Units/ml Oral Susp 5 ml UD PO SCH ×4 (11:02→21:18)
[2018-09-08] MEDS: POLYETHYLENE GLYCOL 3350 17 GM/Dose PACKET PO SCH ×2 (11:02→17:18)
[2018-09-08] MEDS ORDERED: Bisacodyl 5mg EC Tab PO ONE (13:01)
--- NOTE | 2018-09-08 13:35 | CP.PCM.CON ---
History of Present Illness - History of Present Illness History of Present Illness: Hematology/Oncology Consultation (Dr. Tran's Service) CC: CLL/Thrombocytopenia HPI: Mr. Virk is an 82 year old male with a past medical history significant for CLL, HTN, HLD, BPH and inguinal hernia who was admitted originally for dizziness and syncope for two days while at home. Patient was also reported to have unintentionally lost 10 pounds and had poor appetite over that time frame. Hematology/Oncology was consulted for patients history of CLL and thrombocytopenia. Patient was then transferred to the TCU for further physical rehabilitation. Currently, patient denies any complaints including fevers, chills, headache, chest pain, SOB, abdominal pain, N/V/D/C, changes in urine output, skin changes or any numbness/tingling/weakness of any extremity. PMH: As stated above PSH: Denies Family History: Non-Contributory Social History: Denies any tobacco, alcohol or any illicit drug use Allergies: NKDA Home Medications: As per [facility] PMD: Dr. Ag Review of Systems - Review of Systems Review of Systems: As stated in HPI, otherwise negative Past Patient History - Infectious Disease Hx of Infectious Diseases: None - Past Social History Smoking Status: Unknown If Ever Smoked - CARDIAC Hx Cardiac Disorders: Yes Hx Hypercholesterolemia: Yes Hx Hypertension: Yes - PULMONARY Hx Respiratory Disorders: No - NEUROLOGICAL Hx Neurological Disorder: Yes Hx Dizziness: Yes - HEENT Hx HEENT Problems: Yes Other/Comment: [place] - RENAL Hx Chronic Kidney Disease: No - ENDOCRINE/METABOLIC Hx Endocrine Disorders: No - HEMATOLOGICAL/ONCOLOGICAL Hx Blood Disorders: Yes Other/Comment: leukemia - INTEGUMENTARY Hx Dermatological Problems: No - MUSCULOSKELETAL/RHEUMATOLOGICAL Hx Falls: Yes (08/23/18) - GASTROINTESTINAL Other/Comment: large inguinal hernia - GENITOURINARY/GYNECOLOGICAL Hx Reproductive Disorders: Yes - PSYCHIATRIC Hx Psychophysiologic Disorder: No - ANESTHESIA Hx Anesthesia Reactions: No Meds Allergies/Adverse Reactions: Allergies Allergy/AdvReac Type Severity Reaction Status Date / Time No Known Allergies Allergy Verified 09/01/18 17:30 - Medications Medications: Current Medications Aspirin (Ecotrin) 81 mg PO 0800 [facility]; Protocol Last Admin: 09/08/18 09:05 Dose: 81 mg Atorvastatin Calcium (Lipitor) 40 mg PO DIN [facility]; Protocol Last Admin: 11/11/18 17:23 Dose: 40 mg Clopidogrel Bisulfate (Plavix) 75 mg PO DAILY [facility]; Protocol Last Admin: 09/08/18 11:02 Dose: 75 mg Finasteride (Proscar) 5 mg PO DAILY [facility]; Protocol Last Admin: 09/08/18 11:02 Dose: 5 mg Levothyroxine Sodium (Synthroid) 50 mcg PO 0600 [facility]; Protocol Last Admin: 09/08/18 05:26 Dose: 50 mcg Mirtazapine (Remeron) 15 mg PO HS [facility]; Protocol Last Admin: 09/07/18 21:06 Dose: 15 mg Mupirocin (Bactroban Ointment) 0 gm TOP BID [facility]; Protocol Last Admin: 09/08/18 11:02 Dose: 1 appl Nystatin (Nystatin Oral Susp) 5 ml PO QID [facility]; Protocol Last Admin: 09/08/18 11:02 Dose: 5 ml Pantoprazole Sodium (Protonix Ec Tab) 40 mg PO 0600 [facility]; Protocol Last Admin: 09/08/18 05:27 Dose: 40 mg Polyethylene Glycol (Miralax) 17 gm PO BID [facility] Last Admin: 09/08/18 11:02 Dose: 17 gm Quetiapine Fumarate (Seroquel) 25 mg PO HS [facility]; Protocol Last Admin: 09/07/18 21:05 Dose: 25 mg Tamsulosin HCl (Flomax) 0.4 mg PO 1830 [facility]; Protocol Physical Exam - Constitutional Additional comments: Non-toxic, No Acute Distress - Head Exam Head Exam: ATRAUMATIC, NORMOCEPHALIC - Eye Exam Eye Exam: EOMI, PERRL - ENT Exam ENT Exam: Mucous Membranes Moist - Neck Exam Neck exam: Positive for: Full Rom, Normal Inspection. Negative for: Lymphadenopathy, Meningismus, Tenderness, Thyromegaly - Respiratory Exam Respiratory Exam: Clear to Auscultation Bilateral, NORMAL BREATHING PATTERN. ab sent: Accessory Muscle Use, Decreased Breath Sounds, Rhonchi, Wheezes, Respiratory Distress - Cardiovascular Exam Cardiovascular Exam: Bradycardia, REGULAR RHYTHM, +S1, +S2 - GI/Abdominal Exam GI & Abdominal Exam: Normal Bowel Sounds, Soft. absent: Tenderness - Extremities Exam Extremities exam: Negative for: calf tenderness - Neurological Exam Neurological exam: Alert, Oriented x3 - Psychiatric Exam Psychiatric exam: Normal Affect, Normal Mood - Skin Skin Exam: Dry, Warm Results - Vital Signs Recent Vital Signs: Last Vital Signs Temp 97.9 F 09/07/18 16:00 Pulse 78 09/07/18 16:00 Resp 18 09/07/18 16:47 BP 163/73 H 09/07/18 16:00 Pulse Ox 98 09/07/18 16:00 - Labs Labs: Laboratory Results - last 24 hr 09/08/18 11:49 POC Glucose (mg/dL) 89 Assessment & Plan - Assessment and Plan (Free Text) Assessment: 82 year old male with a past medical history significant for CLL, HTN, HLD, BPH and inguinal hernia who was admitted for dizziness and syncope for two days while at home. Hematology/Oncology was consulted for patients history of CLL and thrombocytopenia. 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 Tran Patient seen and case discussed with attending, Dr. Tran. Jose Ramírez PGY2 - Date & Time Date: 09/08/18 Time: 13:33
[2018-09-09] MEDS: Pantoprazole 40 mg EC Tab PO SCH (06:02)
[2018-09-09] MEDS: Levothyroxine 50 MCG TAB PO SCH (06:02)
[2018-09-09 06:46] LABS: BASO # 0.03 K/mm3 (0.0-2.0); BASO % 0.1 % (0.0-3.0); EOS # 0.1 (0.0-0.7); EOS % 0.6 % (1.5-5.0); GRAN % 9.6 % (50.0-68.0); HEMOGLOBIN 10.6 g/dL (14.0-18.0); LYMPH % 86.2 % (22.0-35.0); MEAN CELL VOLUME 97.9 fl (80.0-105.0); MEAN CORPUSCULAR HEMOGLOBIN 31.3 pg (25.0-35.0); MEAN CORPUSCULAR HGB CONC 31.9 g/dl (31.0-37.0); MEAN PLATELET VOLUME 10.2 fl (7.0-11.0); MONO # 0.7 (0.1-0.6); MONO % 3.5 % (1.0-6.0); PLATELET COUNT 90 10^3/uL (120.0-450.0); RBC 3.39 10^6/uL (3.5-6.1); RED CELL DISTRIBUTION WIDTH 14.8 % (11.5-14.5); WHITE BLOOD COUNT 20.9 10^3/uL (4.5-11.0)
--- NOTE | 2018-09-09 07:04 | CON ---
DATE: 09/08/2018 CARDIOLOGY CONSULTATION REASON FOR CONSULTATION: Continuity of care, transitioned care, status post PTCA. HISTORY OF PRESENT ILLNESS: Briefly, this is an 82-year-old male with past medical history significant for CLL, hypertension, and hyperlipidemia, admitted because of the dizziness, history of coronary artery disease in the past, history of stress test a couple of years ago, was abnormal. The patient lost followup. Multiple risk factors of coronary artery disease, the patient had stress test which is abnormal. The patient subsequently underwent cardiac catheterization and a stenting of mid RCA to RV marginal branch of the [place]. An outpatient, transferred to transition care for the continuity of care. He denies any chest pain, shortness of breath, or any palpitation. PAST MEDICAL HISTORY: Significant for CLL, hypertension, hyperlipidemia, coronary artery disease, status post stress test on 09/04/2018 that shows that suspicious for ischemia, so patient underwent cardiac catheterization with stenting. CARDIAC WORKUP: As follows: The patient had a cardiac catheterization on 09/05/2018, that shows mid LAD to RCA occluded, a large RV marginal branch is collateral to entire LAD. Has 90% ostial stenosis, distal RCA and RPD are getting collateral from the circumflex. Preserved LV function with ejection fraction of 55-60%, EDP in the range of 20, successful PTCA with drug-eluting stent of mid RCA to ostial RV marginal branch was done with a drug-eluting stent. The patient has also, prior to that, had a stress test is done on 09/04/2018, and that showed abnormal myocardial perfusion study, partial reversible anteroseptal apical defect suggestive of ischemia. That prompted the cardiac catheterization and subsequently stenting of mid RCA to RV marginal branch. Ejection fraction by a stress test reported at 57%. The patient had an echocardiography on 09/02/2018 that revealed ejection fraction of 70-75%, trace mitral regurgitation and moderate tricuspid regurgitation, multiple jets, RV systolic pressure consistent with moderate pulmonary hypertension. SOCIAL HISTORY: Denies history of alcohol abuse. CURRENT MEDICATIONS: Now the patient is started on aspirin, Plavix, atenolol, atorvastatin, and Flomax. REVIEW OF SYSTEMS: As per HPI. PHYSICAL EXAMINATION: As follows: VITAL SIGNS: Height of the patient is 5 feet 9 inches, weight of the patient is 155 pounds. Body mass index is 23 per meter square. Temperature afebrile, heart rate 78, blood pressure 162/73. HEENT: PERRLA. Extraocular muscles intact. NECK: Supple. No carotid bruit or thyromegaly. CHEST: Clear to auscultation. HEART: S1 and S2 regular. ABDOMEN: Soft. EXTREMITIES: Clubbing and cyanosis negative. LABORATORY DATA: Blood workup as of 09/07/2018; WBC 31.9, hemoglobin 11, hematocrit 33.7, platelet count 82,000. Chemistry shows sodium 140, potassium 3.8, chloride 101, carbon dioxide 29, anion gap of 8, BUN 13, creatinine 1.1. IMPRESSION: An 82-year-old male with past medical history significant for hypertension and hyperlipidemia, admitted with dizziness. Multiple risk factors for coronary artery disease. The patient underwent a stress test which was abnormal, so the patient subsequently underwent cardiac catheterization and stenting of mid right coronary artery to ostial right ventricle marginal branch which is collateral to the left anterior descending. Mid left anterior descending and mid right coronary artery are totally occluded. Preserved left ventricular function. RECOMMENDATIONS: Continue aspirin, continue Plavix for one year, continue atorvastatin. We will add a low dose beta-cm as blood pressure and heart rate is tolerated. The patient has history of CLL, thrombocytopenia, leukocytosis, and anemia. We will repeat the blood workup in the morning. Thank you Dr. Ag for providing us an opportunity in taking care of the patient, Juni Virk. We will follow with you. Trudi Silva MD
[2018-09-09 07:13] LABS: ALB/GLOB RATIO 1.7 (1.1-1.8); ALBUMIN 3.5 g/dL (3.0-4.8); ALT/SGPT 31 U/L (7-56); AST/SGOT 26 U/L (17-59); BLOOD UREA NITROGEN 20 mg/dL (7-21); CALCIUM 8.9 mg/dL (8.4-10.5); GFR NON-AFRICAN AMERICAN 58
--- NOTE | 2018-09-09 08:41 | CP.PCM.PN ---
Subjective - Date & Time of Evaluation Date of Evaluation: 09/09/18 Time of Evaluation: 08:41 - Subjective Subjective: Hematology/Oncology Progress Note (Dr. Tran's Service) Patient seen and assessed at bedside. No acute events noted overnight. Patient denies any complaints at this time and 12 point ROS was unremarkable. Objective - Vital Signs/Intake and Output Vital Signs (last 24 hours): Temp Pulse Resp BP Pulse Ox 98.3 F 87 20 126/57 L 97 09/08/18 16:00 09/08/18 17:18 09/08/18 16:00 09/08/18 17:18 09/08/18 16:00 - Medications Medications: Current Medications Aspirin (Ecotrin) 81 mg PO 0800 [facility]; Protocol Last Admin: 09/08/18 09:05 Dose: 81 mg Atorvastatin Calcium (Lipitor) 40 mg PO DIN [facility]; Protocol Last Admin: 09/08/18 17:17 Dose: 40 mg Clopidogrel Bisulfate (Plavix) 75 mg PO DAILY [facility]; Protocol Last Admin: 09/08/18 11:02 Dose: 75 mg Finasteride (Proscar) 5 mg PO DAILY [facility]; Protocol Last Admin: 09/08/18 11:02 Dose: 5 mg Levothyroxine Sodium (Synthroid) 50 mcg PO 0600 [facility]; Protocol Last Admin: 09/09/18 06:02 Dose: 50 mcg Metoprolol Tartrate (Lopressor) 12.5 mg PO BID [facility] Last Admin: 09/08/18 17:18 Dose: 12.5 mg Mirtazapine (Remeron) 15 mg PO HS [facility]; Protocol Last Admin: 09/08/18 21:19 Dose: 15 mg Mupirocin (Bactroban Ointment) 0 gm TOP BID [facility]; Protocol Last Admin: 09/08/18 17:18 Dose: Not Given Nystatin (Nystatin Oral Susp) 5 ml PO QID [facility]; Protocol Last Admin: 09/08/18 21:18 Dose: 5 ml Pantoprazole Sodium (Protonix Ec Tab) 40 mg PO 0600 [facility]; Protocol Last Admin: 09/09/18 06:02 Dose: 40 mg Polyethylene Glycol (Miralax) 17 gm PO BID [facility] Last Admin: 09/08/18 17:18 Dose: 17 gm Quetiapine Fumarate (Seroquel) 25 mg PO HS [facility]; Protocol Last Admin: 09/08/18 21:19 Dose: 25 mg Tamsulosin HCl (Flomax) 0.4 mg PO 1830 [facility]; Protocol Last Admin: 09/08/18 17:49 Dose: 0.4 mg - Labs Labs: 09/09/18 06:00 09/09/18 06:00 - Additional Findings Additional findings: - Constitutional Appears: Non-toxic, No Acute Distress - Head Exam Head Exam: ATRAUMATIC, NORMOCEPHALIC - Eye Exam Eye Exam: EOMI, PERRL - ENT Exam ENT Exam: Mucous Membranes Moist - Neck Exam Neck exam: Positive for: Full Rom, Normal Inspection. Negative for: Lymphad enopathy, Meningismus, Tenderness, Thyromegaly - Respiratory Exam Respiratory Exam: Clear to Auscultation Bilateral, NORMAL BREATHING PATTERN. absent: Accessory Muscle Use, Decreased Breath Sounds, Rhonchi, Wheezes, Respiratory Distress - Cardiovascular Exam Cardiovascular Exam: Bradycardia, REGULAR RHYTHM, +S1, +S2 - GI/Abdominal Exam GI & Abdominal Exam: Normal Bowel Sounds, Soft, Hernia (Non-tender; Reducible). absent: Tenderness - Extremities Exam Extremities exam: Negative for: calf tenderness - Neurological Exam Neurological exam: Alert, Oriented x3 - Psychiatric Exam Psychiatric exam: Normal Affect, Normal Mood - Skin Skin Exam: Dry, Warm Assessment and Plan - Assessment and Plan (Free Text) Assessment: 82 year old male with a past medical history significant for CLL, HTN, HLD, BPH and inguinal hernia who was admitted for dizziness and syncope for two days while at home. Hematology/Oncology was consulted for patients history of CLL and thrombocytopenia. 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 Tran Patient seen and case discussed with attending, Dr. Tran. Jose Ramírez PGY2
[2018-09-09] MEDS: POLYETHYLENE GLYCOL 3350 17 GM/Dose PACKET PO SCH ×2 (10:04→18:09)
[2018-09-09] MEDS: Nystatin 100,000 Units/ml Oral Susp 5 ml UD PO SCH ×4 (10:04→21:02)
[2018-09-09] MEDS: Mupirocin 2% Ointment 15 GM TUBE TOP SCH ×2 (10:09→18:08)
[2018-09-09 11:31] LABS: ATYPICAL LYMPHOCYTE 7 % (0.0-0.0); LARGE PLATELETS PRESENT; LYMPHOCYTE 69 % (22.0-35.0); MONOCYTE 2 % (1.0-6.0); NEUTROPHIL 22 % (50.0-70.0); SMUDGE CELLS PRESENT
--- NOTE | 2018-09-09 13:54 | PN ---
DATE: 09/09/2018 SEX OF THE PATIENT: Male. AGE OF THE PATIENT: 82. TYPE OF THE DICTATION: Progress note. ATTENDING PHYSICIAN: Dr. Silva. REASON FOR CONSULTATION: Followup. Continuity of care to Transitional Care Unit status post PTCA of mid RCA into RV branch. SUBJECTIVE: The patient denies any chest pain, shortness of breath, any palpitation. PHYSICAL EXAMINATION GENERAL: Not in apparent distress. VITAL SIGNS: Temperature afebrile, heart rate 70, blood pressure 106/70. HEENT: PERRLA. Extraocular muscles intact. NECK: Supple. No carotid bruit or thyromegaly. CHEST: Clear to auscultation. HEART: S1, S2. regular. ABDOMEN: Soft. EXTREMITIES: Clubbing and cyanosis negative. LABORATORY DATA: Blood workup as follows: WBC 21.9, hemoglobin , hematocrit 33.2, platelet count 90,000. Chemistry shows sodium 140, potassium 3.9, chloride 106, carbon dioxide , anion gap of 11, BUN 20, creatinine 1.2. IMPRESSION: An 82-year-old male with a past medical history significant for chronic lymphocytic leukemia, hyperlipidemia, hypertension, admitted with dizziness, syncope, coronary artery disease. The patient under went a stress test which was abnormal, the patient underwent a cardiac catheterization and subsequently stenting of mid right coronary artery to ostial right ventricular branch. Now, the patient is in Transitional Care Unit. Denies any chest pain, shortness of breath, any palpitation. RECOMMENDATION: Continue baby aspirin, continue Plavix for 1 year, mandatory for 1 year. Continue atorvastatin, low-dose beta-cm as blood pressure is tolerated. Monitor hem/onc for CLL. Continue rehab, continue levothyroxine. Thank you Dr. Ag for providing us the opportunity in taking care of the patient Moose Alfredo. Trudi Silva MD
--- NOTE | 2018-09-09 18:41 | HP ---
DATE OF EXAM: 09/08/2018 The patient is in Transitional Care Unit for gait training and stability. He did have vertigo problem, he is status post PTCA on medical floor by broadcast checker. HISTORY OF PRESENT ILLNESS: An 82-year-old male with history of coronary artery disease, status post stent; right coronary artery; CLL; hypertension; hypercholesterolemia; vertigo; and large inguinal hernia and came in to the hospital after being evaluated for his dizziness, seen by neurologist, Dr. Avery Rodriguez and carotid ultrasound was negative, and was given meclizine. He was also seen by Cardiology, stress test positive, coronary angiogram and RCA was stented. Patient otherwise stable. No complaint. He has been doing okay otherwise. PAST MEDICAL HISTORY: CLL, hypertension, hypercholesterolemia, and chronic acid reflux. ALLERGIES: NO KNOWN ALLERGIES. SOCIAL HISTORY: He lives in [facility]. He has a supportive cousins, otherwise nobody. He takes his medications. He comes in on a regular basis, seen by process automation engineer in the past. He does not smoke and does not drink. REVIEW OF SYSTEMS: As in the present illness. He did have some back pain with exertion that he leads to his rest. He also had large inguinal hernia with difficult urination. He denies any short of breath. No back pain. No joint pain, but he does not do much activity. No blood in the stools. No nausea or vomiting. No recent weight loss. PHYSICAL EXAMINATION: VITAL SIGNS: On 09/08/2018; temperature 98.6, heart rate 84, blood pressure 133/63, respirations 16, and saturation 99%. HEAD AND NECK: Normal. No JVD. No thyromegaly. CHEST: Clear bilaterally. CARDIAC: First sound and second sound normal. No murmur, rub, or gallop. ABDOMEN: Soft and nontender. A large inguinal hernia, right more than left. EXTREMITIES: No edema. NEUROLOGIC: Normal. LABORATORY DATA: Laboratory was ordered for tomorrow. IMPRESSION AND PLAN: 1. Coronary artery disease, status post stent. Continue aspirin and Plavix. 2. Chronic lymphocytic leukemia with anemia and thrombocytopenia. Continue recommendation by process automation engineer. 3. Patient has prostate enlargement , continue Flomax. 4. History of hypothyroidism. Continue Synthroid 50 mcg once a day. Patient also had constipation, we will give MiraLax in addition to Dulcolax p.r.n. 5. Generalized weakness and dizziness. Continue physical therapy, gait training, and we will follow up clinically. Continue current therapy. We will follow up with the other consultants. Hany Ag MD
[2018-09-10] MEDS: Pantoprazole 40 mg EC Tab PO SCH (05:56)
[2018-09-10] MEDS: Levothyroxine 50 MCG TAB PO SCH (05:56)
[2018-09-10] MEDS: POLYETHYLENE GLYCOL 3350 17 GM/Dose PACKET PO SCH ×2 (10:05→17:49)
[2018-09-10] MEDS: Nystatin 100,000 Units/ml Oral Susp 5 ml UD PO SCH ×4 (10:10→21:51)
[2018-09-10] MEDS: Mupirocin 2% Ointment 15 GM TUBE TOP SCH ×2 (10:42→18:55)
--- NOTE | 2018-09-10 11:35 | PN ---
DATE: 09/10/2018 REASON FOR CONSULTATION AND FOLLOWUP: Continuity of care in Transitional Care Unit, status post PTCA of mid RCA and RV branch. SUBJECTIVE: The patient denies any chest pain, shortness of breath or any palpitation. Denies any dizziness. OBJECTIVE: GENERAL: Sitting in the chair, having breakfast, not in apparent distress. VITAL SIGNS: Temperature afebrile, heart rate 79, blood pressure 127/63. HEENT: PERRLA. Extraocular muscles intact. NECK: Supple. No carotid bruit. No thyromegaly. CHEST: Clear to auscultation. HEART: S1 and S2 regular. ABDOMEN: Soft. EXTREMITIES: Clubbing and cyanosis negative. LABORATORY DATA: Blood workup as follows: WBC 20.9, hemoglobin 10.3, hematocrit 33.2, platelet count 90,000. Chemistry shows sodium 140, potassium 3.9, chloride 106, carbon dioxide 29, anion gap of 11, BUN 20, creatinine 1.2. IMPRESSION: An 82-year-old male with past medical history of chronic lymphocytic leukemia, hypertension, admitted with dizziness, multiple coronary artery disease, a stress test is abnormal. Patient underwent cardiac catheterization with stenting of mid RCA into RV branch, now patient in Transitional Care Unit, he is stable. Denies any chest pain, shortness of breath or any palpitation. History of hypertension, hyperlipidemia. RECOMMENDATION: Continue baby aspirin 81 mg daily, continue metoprolol 12.5 mg daily, continue Flomax, continue atorvastatin 40 mg daily, continue Plavix, continue cardiac rehab. Once the patient is stable, okay to be discharged home. Emphasis made to the patient for the compliance of the medication and mandatory continue aspirin and Plavix for [address] Ag for providing us the opportunity in taking care of the patient, Moose Alfredo. Trudi Silva MD cc: Hany Ag MD
--- NOTE | 2018-09-10 13:37 | PN ---
DATE: 09/10/2018 SUBJECTIVE: The patient is doing better. He had a good bowel movement. No chest pain. No shortness of breath. Walking better. He is still having problem with urination. He does have huge and large right inguinal hernia with the penis hard shaft is getting inside the swelling, which make him difficult to control the urine. The patient otherwise is doing better. PHYSICAL EXAMINATION: VITAL SIGNS: Temperature 98.7, heart rate 79, blood pressure 127/63, respiration 18 and saturation 97%. HEAD AND NECK: Normal. No JVD. No thyromegaly. CHEST: Clear bilaterally. CARDIAC: First sound and second sound normal. No murmur, rub or gallop. ABDOMEN: Soft and nontender with large inguinal hernia, right more than the left. EXTREMITIES: No edema. NEUROLOGIC: Normal. LABORATORY DATA: White count 20.9, hemoglobin 10.6, hematocrit 33.2 and platelets 90,000. Chemistry: Sodium 142, potassium is 3.9, chloride 106, bicarb 29, BUN 20 and creatinine 1.2. Liver function test is normal. IMPRESSION AND PLAN: 1. Generalized weakness and deconditioning. Continue physical therapy. 2. Coronary artery disease, status post stent and right coronary artery stented. Continue Plavix and aspirin. 3. Chronic lymphocytic leukemia with associated anemia and thrombocytopenia, probably secondary to chronic lymphocytic leukemia; however, the patient encouraged to get colonoscopy after fixing his hernia. We will see week until the cardiac status stabilizes, probably in 6 months. 4. Hypothyroidism, acid reflux. Continue Protonix, continue Synthroid. 5. History of psychotic thoughts in the past. Currently, on Seroquel at night which helped him sleep with Remeron 15 mg at night. CURRENT MEDICATIONS: Bactroban to the skin area , Ecotrin 81, Flomax 0.4, Lipitor 40, Lopressor 12.5 b.i.d., Miralax b.i.d., nystatin oil solution, Plavix 75, Proscar 5, Protonix 40, Remeron 15, Seroquel 25 at bedtime and Synthroid 50 mcg daily. Continue current therapy. Hany Ag MD
--- NOTE | 2018-09-10 14:09 | CP.PCM.PN ---
Subjective - Date & Time of Evaluation Date of Evaluation: 09/10/18 Time of Evaluation: 14:09 - Subjective Subjective: Hematology/Oncology Progress Note (Dr. Tran's Service) Patient seen and assessed at bedside. No acute events noted overnight. Patient denies any complaints at this time and 12 point ROS was unremarkable. Objective - Vital Signs/Intake and Output Vital Signs (last 24 hours): Temp Pulse Resp BP Pulse Ox 98.7 F 84 18 124/58 L 97 09/09/18 16:00 09/10/18 10:07 09/09/18 16:00 09/10/18 10:07 09/09/18 16:00 - Medications Medications: Current Medications Aspirin (Ecotrin) 81 mg PO 0800 RONA; Protocol Last Admin: 09/10/18 08:22 Dose: 81 mg Atorvastatin Calcium (Lipitor) 40 mg PO DIN RONA; Protocol Last Admin: 09/09/18 18:09 Dose: 40 mg Clopidogrel Bisulfate (Plavix) 75 mg PO DAILY RONA; Protocol Last Admin: 09/10/18 10:10 Dose: 75 mg Finasteride (Proscar) 5 mg PO DAILY RONA; Protocol Last Admin: 09/10/18 10:11 Dose: 5 mg Levothyroxine Sodium (Synthroid) 50 mcg PO 0600 RONA; Protocol Last Admin: 09/10/18 05:56 Dose: 50 mcg Metoprolol Tartrate (Lopressor) 12.5 mg PO BID RONA Last Admin: 09/10/18 10:07 Dose: 12.5 mg Mirtazapine (Remeron) 15 mg PO HS RONA; Protocol Last Admin: 09/09/18 21:02 Dose: 15 mg Mupirocin (Bactroban Ointment) 0 gm TOP BID RONA; Protocol Last Admin: 09/10/18 10:42 Dose: 1 appl Nystatin (Nystatin Oral Susp) 5 ml PO QID RONA; Protocol Last Admin: 09/10/18 14:06 Dose: 5 ml Pantoprazole Sodium (Protonix Ec Tab) 40 mg PO 0600 RONA; Protocol Last Admin: 09/10/18 05:56 Dose: 40 mg Polyethylene Glycol (Miralax) 17 gm PO BID RONA Last Admin: 09/10/18 10:05 Dose: 17 gm Quetiapine Fumarate (Seroquel) 25 mg PO HS RONA; Protocol Last Admin: 09/09/18 21:02 Dose: 25 mg Tamsulosin HCl (Flomax) 0.4 mg PO 1830 [facility]; Protocol Last Admin: 09/09/18 18:08 Dose: 0.4 mg - Labs Labs: 09/09/18 06:00 09/09/18 06:00 - Additional Findings Additional findings: - Constitutional Appears: Non-toxic, No Acute Distress - Head Exam Head Exam: ATRAUMATIC, NORMOCEPHALIC - Eye Exam Eye Exam: EOMI, PERRL - ENT Exam ENT Exam: Mucous Membranes Moist - Neck Exam Neck exam: Positive for: Full Rom, Normal Inspection. Negative for: Lymphadeno chris, Meningismus, Tenderness, Thyromegaly - Respiratory Exam Respiratory Exam: Clear to Auscultation Bilateral, NORMAL BREATHING PATTERN. absent: Accessory Muscle Use, Decreased Breath Sounds, Rhonchi, Wheezes, Respiratory Distress - Cardiovascular Exam Cardiovascular Exam: Bradycardia, REGULAR RHYTHM, +S1, +S2 - GI/Abdominal Exam GI & Abdominal Exam: Normal Bowel Sounds, Soft, Hernia (Non-tender; Reducible). absent: Tenderness - Extremities Exam Extremities exam: Negative for: calf tenderness - Neurological Exam Neurological exam: Alert, Oriented x3 - Psychiatric Exam Psychiatric exam: Normal Affect, Normal Mood - Skin Skin Exam: Dry, Warm Assessment and Plan - Assessment and Plan (Free Text) Assessment: 82 year old male with a past medical history significant for CLL, HTN, HLD, BPH and inguinal hernia who was admitted for dizziness and syncope for two days while at home. Hematology/Oncology was consulted for patients history of CLL and thrombocytopenia. 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 Tran Patient seen and case discussed with attending, Dr. Tran. Jose Ramírez PGY2
[2018-09-11] MEDS: Pantoprazole 40 mg EC Tab PO SCH (06:11)
[2018-09-11] MEDS: Levothyroxine 50 MCG TAB PO SCH (06:11)
[2018-09-11] MEDS: Mupirocin 2% Ointment 15 GM TUBE TOP SCH ×2 (09:46→17:09)
[2018-09-11] MEDS: Nystatin 100,000 Units/ml Oral Susp 5 ml UD PO SCH ×4 (09:47→21:17)
[2018-09-11] MEDS: POLYETHYLENE GLYCOL 3350 17 GM/Dose PACKET PO SCH ×2 (09:47→17:10)
--- NOTE | 2018-09-11 10:12 | PN ---
DATE: 09/10/2018 SUBJECTIVE: Patient is in TCU. Patient is comfortable. Has no distress. Still have urine dribbling due to his large inguinal hernia which mechanically with his penis shaft inside his scrotal sac with difficulty getting the urine out. Otherwise, patient is better but still has some gait disorders. He still needs some physical therapy, ambulation and gait training. PHYSICAL EXAMINATION: VITAL SIGNS: Temperature 97.6, heart rate 68, blood pressure 136/72, respirations 16, saturation 99%. HEENT: Head and neck normal. NECK: No JVD, no thyromegaly. CHEST: Clear bilateral. CARDIAC: First sound and second sound normal. ABDOMEN: Soft, nontender. Also large inguinal hernia. EXTREMITIES: No edema. NEUROLOGIC: Normal. LABORATORY DATA: None was done. His white count 20,000 last time and his platelets was 97. Chemistry lombardi, he is doing good. Blood sugar was 120 and chemistry, kidney function, liver function was normal. IMPRESSION AND PLAN: 1. Status post coronary artery stenting right coronary artery. Patient has good left ventricular function. 2. Patient has dizziness. Workup negative. Continue meclizine. Continue physical therapy and training. 3. Chronic lymphocytic leukemia, stable at this time. We will discuss with the specialist about any medication that slow down the progression of chronic lymphocytic leukemia. 4. Large inguinal hernia. Will need surgery probably at least 6 months post stenting. 5. Hypothyroidism. Continue levothyroxine 50 mcg once a day. 6. History of difficult sleeping because of people given smoke from the apartment and it seems got better, least symptoms and least complaints, done better with Seroquel, so we will continue that. There are no any other symptoms reflecting any psychosis in this patient. He seems stable mentally. He is alert, awake, oriented x3. 7. Hypercholesterolemia. PLAN: Continue current therapy which include Bactroban, aspirin, Flomax, Lipitor 40, metoprolol 12.5 b.i.d., MiraLax for constipation, nystatin suppository, Plavix 75, Proscar 5, Protonix 40, Remeron 15 mg at bedtime, Seroquel 25 at bedtime, Synthroid 50 daily. Continue current therapy. Hany Ag MD
[2018-09-11] MEDS ORDERED: Bisacodyl 5mg EC Tab PO PRN (13:39)
--- NOTE | 2018-09-11 14:02 | PN ---
DATE: 09/11/2018 REASON FOR CONSULTATION AND FOLLOWUP: Continuity of care in Transitional Care Unit, status post PTCA of mid RCA and RV branch. SUBJECTIVE: The patient denies any chest pain, shortness of breath or any palpitation. He is complaining of constipation since he is here. OBJECTIVE: GENERAL: Not in apparent distress, sitting on the chair, eating breakfast. No complaint of dizziness. VITAL SIGNS: Temperature afebrile, heart rate 82, blood pressure 124/61. HEENT: PERRLA. Extraocular muscles intact. NECK: Supple. No carotid bruit or thyromegaly. CHEST: Clear to auscultation. HEART: S1, S2 regular. ABDOMEN: Soft. EXTREMITIES: Clubbing and cyanosis negative. LABORATORY DATA: Blood workup as follows: WBC 20.2, hemoglobin 10.6, hematocrit 33.2 and platelet count 90,000. Chemistry shows sodium 140, potassium 3.9, chloride 106, carbon dioxide 29, anion gap of 11, BUN 20, creatinine 1.2. IMPRESSION: An 82-year-old male with a past medical history significant for chronic lymphocytic leukemia, hypertension, admitted with dizziness, multiple coronary artery stenoses, stress test abnormal. The patient underwent cardiac catheterization with stenting of mid RCA to RV branch, now patient is in Transitional Care Unit for rehab. He denies any chest pain or shortness of breath. He complained of constipation. RECOMMENDATION: Continue baby aspirin, continue metoprolol 12.5 mg p.o. b.i.d., continue Flomax, continue atorvastatin, continue Plavix, continue cardiac rehab. Emphasis made to the patient for the compliance of the medication and mandatory continue aspirin and Plavix for 1 year. We will give one dose of lactulose to move his bowels. Thank you Dr. Ag for providing us the opportunity in taking care of the patient, Juni Virk. Trudi Silva MD
--- NOTE | 2018-09-11 22:16 | PN ---
DATE: 09/11/[address] [facility] visit on the TCU floor. For Dr. Tran. SUBJECTIVE: The patient is an 82-year-old male. He is sitting up in a chair, now recuperating on TCU after the patient had stent placement by Dr. Silva, his electrical service technician with the patient also known to suffer from CLL versus mantle cell lymphoma with significantly abnormal labs. He reports that his insomnia has improved and is following TCU protocol and is in no distress. He is known to have significant splenomegaly on his testing including bilateral inguinal herniae, which are not a problem for him at present. PHYSICAL EXAMINATION: GENERAL: Temperature 97.8, pulse 82, respirations 12, blood pressure 124/61 with a pulse ox of 97. HEENT: Unremarkable. NECK: Supple. HEART: Regular rate. LUNGS: Clear. ABDOMEN: Soft. EXTREMITIES: No edema. SKIN: Warm and dry. NEUROLOGIC: Awake and alert, but appears anxious. LABORATORY DATA: The patient's labs were done 2 days prior to include white blood cell count of 20.9 down from a high of 41.6 earlier his hospital stay, hemoglobin of 10.6, hematocrit of 33.2, platelet count of 90,000, improved from his low of 75,000, approximately 5 days earlier. His chem metabolic panel was within normal range 2 days ago with a nonfasting glucose of 127. ASSESSMENT: The assessment for this patient is that of deconditioning, chronic lymphocytic leukemia versus mantle cell lymphoma, atherosclerotic cardiovascular disease status post stenting, inguinal herniae, hypothyroidism, splenomegaly, anxiety disorder, hyperlipidemia, and benign prostatic hyperplasia. PLAN: Continue TCU protocols with continuation of his present medical regimen with the patient now complaining of constipation prior to end of the visit with fleet enema to be recommended, repeat if necessary. The patient is already taking MiraLax with poor effect. This is a complex patient with a comprehensive medically necessary and appropriate visit carried out in excess of 15 minutes with the patient's questions answered to his satisfaction. Tery Gillette MD
[2018-09-12] MEDS: Levothyroxine 50 MCG TAB PO SCH (05:41)
[2018-09-12] MEDS: Pantoprazole 40 mg EC Tab PO SCH (05:41)
[2018-09-12 06:17] LABS: BASO # 0.04 K/mm3 (0.0-2.0); BASO % 0.2 % (0.0-3.0); EOS # 0.1 (0.0-0.7); EOS % 0.5 % (1.5-5.0); GRAN # 1.42 (1.4-6.5); GRAN % 6.8 % (50.0-68.0); HEMOGLOBIN 10.5 g/dL (14.0-18.0); LYMPH # 18.1 (1.2-3.4); LYMPH % 86.9 % (22.0-35.0); MEAN CELL VOLUME 97.9 fl (80.0-105.0); MEAN CORPUSCULAR HGB CONC 32.7 g/dl (31.0-37.0); MEAN PLATELET VOLUME 10.5 fl (7.0-11.0); MONO # 1.2 (0.1-0.6); MONO % 5.6 % (1.0-6.0); PLATELET COUNT 96 10^3/uL (120.0-450.0); RBC 3.28 10^6/uL (3.5-6.1); RED CELL DISTRIBUTION WIDTH 14.8 % (11.5-14.5); WHITE BLOOD COUNT 20.9 10^3/uL (4.5-11.0)
[2018-09-12 07:55] LABS: LYMPHOCYTE 84 % (22.0-35.0); MONOCYTE 1 % (1.0-6.0); NEUTROPHIL 15 % (50.0-70.0); PLATELET ESTIMATE LOW (NORMAL)
[2018-09-12 08:15] LABS: ALB/GLOB RATIO 1.7 (1.1-1.8); ALBUMIN 3.5 g/dL (3.0-4.8); ALT/SGPT 20 U/L (7-56); AST/SGOT 24 U/L (17-59); BLOOD UREA NITROGEN 23 mg/dL (7-21); CALCIUM 8.9 mg/dL (8.4-10.5); GFR NON-AFRICAN AMERICAN 53
--- NOTE | 2018-09-12 09:22 | CP.PCM.PN ---
Subjective - Date & Time of Evaluation Date of Evaluation: 09/12/18 Time of Evaluation: 09:22 - Subjective Subjective: Hematology/Oncology Progress Note (Dr. Tran's Service) Patient seen and assessed at bedside. No acute events noted overnight. Patient denies any complaints at this time and 12 point ROS was unremarkable. Objective - Vital Signs/Intake and Output Vital Signs (last 24 hours): Temp Pulse Resp BP Pulse Ox 98.2 F 81 16 150/63 98 09/11/18 16:00 09/11/18 16:25 09/11/18 16:00 09/11/18 17:10 09/11/18 16:25 - Medications Medications: Current Medications Aspirin (Ecotrin) 81 mg PO 0800 RONA; Protocol Last Admin: 09/12/18 08:17 Dose: 81 mg Atorvastatin Calcium (Lipitor) 40 mg PO DIN RONA; Protocol Last Admin: 09/11/18 17:09 Dose: 40 mg Bisacodyl (Dulcolax) 5 mg PO BID PRN; Protocol PRN Reason: Constipation Clopidogrel Bisulfate (Plavix) 75 mg PO DAILY [facility]; Protocol Last Admin: 09/11/18 09:48 Dose: 75 mg Docusate Sodium (Colace) 100 mg PO TID RONA; Protocol Last Admin: 09/11/18 17:08 Dose: Not Given Finasteride (Proscar) 5 mg PO DAILY [facility]; Protocol Last Admin: 09/11/18 09:48 Dose: 5 mg Levothyroxine Sodium (Synthroid) 50 mcg PO 0600 RONA; Protocol Last Admin: 09/12/18 05:41 Dose: 50 mcg Metoprolol Tartrate (Lopressor) 12.5 mg PO BID RONA Last Admin: 09/11/18 17:10 Dose: 12.5 mg Mirtazapine (Remeron) 15 mg PO HS RONA; Protocol Last Admin: 09/11/18 21:17 Dose: 15 mg Mupirocin (Bactroban Ointment) 0 gm TOP BID RONA; Protocol Last Admin: 09/11/18 17:09 Dose: 1 appl Nystatin (Nystatin Oral Susp) 5 ml PO QID RONA; Protocol Last Admin: 09/11/18 21:17 Dose: 5 ml Pantoprazole Sodium (Protonix Ec Tab) 40 mg PO 0600 RONA; Protocol Last Admin: 09/12/18 05:41 Dose: 40 mg Polyethylene Glycol (Miralax) 17 gm PO BID RONA Last Admin: 09/11/18 17:10 Dose: Not Given Quetiapine Fumarate (Seroquel) 25 mg PO HS RONA; Protocol Last Admin: 09/11/18 21:17 Dose: 25 mg Tamsulosin HCl (Flomax) 0.4 mg PO 1830 RONA; Protocol Last Admin: 09/11/18 17:37 Dose: 0.4 mg - Labs Labs: 09/12/18 06:11 09/12/18 06:11 - Additional Findings Additional findings: - Constitutional Appears: Non-toxic, No Acute Distress - Head Exam Head Exam: ATRAUMATIC, NORMOCEPHALIC - Eye Exam Eye Exam: EOMI, PERRL - ENT Exam ENT Exam: Mucous Membranes Moist - Neck Exam Neck exam: Positive for: Full Rom, Normal Inspection. Negative for: Lymphadenopathy, Meningismus, Tenderness, Thyromegaly - Respiratory Exam Respiratory Exam: Clear to Auscultation Bilateral, NORMAL BREATHING PATTERN. absent: Accessory Muscle Use, Decreased Breath Sounds, Rhonchi, Wheezes, Respiratory Distress - Cardiovascular Exam Cardiovascular Exam: Bradycardia, REGULAR RHYTHM, +S1, +S2 - GI/Abdominal Exam GI & Abdominal Exam: Normal Bowel Sounds, Soft, Hernia (Non-tender; Reducible). absent: Tenderness - Extremities Exam Extremities exam: Negative for: calf tenderness - Neurological Exam Neurological exam: Alert, Oriented x3 - Psychiatric Exam Psychiatric exam: Normal Affect, Normal Mood Assessment and Plan - Assessment and Plan (Free Text) Assessment: 82 year old male with a past medical history significant for CLL, HTN, HLD, BPH and inguinal hernia who was admitted for dizziness and syncope for two days while at home. Hematology/Oncology was consulted for patients history of CLL and thrombocytopenia. 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 Tran Patient seen and case discussed with attending, Dr. Tran. Jose Ramírez PGY2
[2018-09-12] MEDS: Mupirocin 2% Ointment 15 GM TUBE TOP SCH ×2 (10:09→17:46)
[2018-09-12] MEDS: POLYETHYLENE GLYCOL 3350 17 GM/Dose PACKET PO SCH ×2 (10:11→17:07)
[2018-09-12] MEDS: Nystatin 100,000 Units/ml Oral Susp 5 ml UD PO SCH ×4 (10:12→21:43)
--- NOTE | 2018-09-12 10:26 | CP.PCM.CON ---
<EmlerSage alcaraz Risa - Last Filed: 09/12/18 12:02> History of Present Illness - History of Present Illness History of Present Illness: PGY-2 GI consult note for Dr Downs consult reason: constipation Mr Virk is a 82 year old male with a PMHx of CLL, HTN, HLD, BPH and very large reducible bilateral inguinal hernias who was admitted originally for dizziness and syncope. On this admission patient had an abnormal stress test with ensuing cardiac cath with LOUISE placement. He was then transitioned to TCU for referral at which point he developed constipation of 2 days with abdominal discomfort. Prior to that patient was tolerating a regular diet and having normal bowel movements. The primary team started him on a regimen of dulcolax, colace, miralax and also a phosphate enema. After the enema the patient began to have semi-solid bowel (no blood) movements with resolution of abdominal dis comfort. He had 4 total bowel movements yesterday. He states he's never had a colonoscopy before. PMH: CLL, HTN, HLD, BPH and very large reducible bilateral inguinal hernias PSH: Denies Family History: Non-Contributory Social History: Denies any tobacco, alcohol or any illicit drug use Allergies: NKDA Home Medications: As per DEC PMD: Dr. Ag Review of Systems - Constitutional Constitutional: absent: Chills, Fever - EENT Eyes: absent: Change in Vision Nose/Mouth/Throat: absent: Nasal Congestion - Cardiovascular Cardiovascular: absent: Chest Pain - Respiratory Respiratory: absent: Dyspnea - Gastrointestinal Gastrointestinal: Change in Bowel Habits. absent: Abdominal Pain, Bloating, Constipation, Excessive Flatus, Hematemesis, Melena, Nausea, Vomiting Past Patient History - Infectious Disease Hx of Infectious Diseases: None - Past Social History Smoking Status: Unknown If Ever Smoked - CARDIAC Hx Cardiac Disorders: Yes Hx Hypercholesterolemia: Yes Hx Hypertension: Yes - PULMONARY Hx Respiratory Disorders: No - NEUROLOGICAL Hx Neurological Disorder: Yes Hx Dizziness: Yes - HEENT Hx HEENT Problems: Yes Other/Comment: [place] - RENAL Hx Chronic Kidney Disease: No - ENDOCRINE/METABOLIC Hx Endocrine Disorders: No - HEMATOLOGICAL/ONCOLOGICAL Hx Blood Disorders: Yes Other/Comment: leukemia - INTEGUMENTARY Hx Dermatological Problems: No - MUSCULOSKELETAL/RHEUMATOLOGICAL Hx Falls: Yes (08/23/18) - GASTROINTESTINAL Other/Comment: large inguinal hernia - GENITOURINARY/GYNECOLOGICAL Hx Reproductive Disorders: Yes - PSYCHIATRIC Hx Psychophysiologic Disorder: No - ANESTHESIA Hx Anesthesia Reactions: No Meds Allergies/Adverse Reactions: Allergies Allergy/AdvReac Type Severity Reaction Status Date / Time No Known Allergies Allergy Verified 09/11/18 22:32 - Medications Medications: Current Medications Aspirin (Ecotrin) 81 mg PO 0800 [facility]; Protocol Last Admin: 09/12/18 08:17 Dose: 81 mg Atorvastatin Calcium (Lipitor) 40 mg PO DIN [facility]; Protocol Last Admin: 09/11/18 17:09 Dose: 40 mg Bisacodyl (Dulcolax) 5 mg PO BID PRN; Protocol PRN Reason: Constipation Clopidogrel Bisulfate (Plavix) 75 mg PO DAILY [facility]; Protocol Last Admin: 09/12/18 10:12 Dose: 75 mg Docusate Sodium (Colace) 100 mg PO TID [facility]; Protocol Last Admin: 09/11/18 17:08 Dose: Not Given Finasteride (Proscar) 5 mg PO DAILY [facility]; Protocol Last Admin: 09/12/18 10:12 Dose: 5 mg Levothyroxine Sodium (Synthroid) 50 mcg PO 0600 [facility]; Protocol Last Admin: 09/12/18 05:41 Dose: 50 mcg Metoprolol Tartrate (Lopressor) 12.5 mg PO BID [facility] Last Admin: 09/12/18 10:11 Dose: 12.5 mg Mirtazapine (Remeron) 15 mg PO HS [facility]; Protocol Last Admin: 09/11/18 21:17 Dose: 15 mg Mupirocin (Bactroban Ointment) 0 gm TOP BID [facility]; Protocol Last Admin: 09/12/18 10:09 Dose: 1 appl Nystatin (Nystatin Oral Susp) 5 ml PO QID [facility]; Protocol Last Admin: 09/12/18 10:12 Dose: 5 ml Pantoprazole Sodium (Protonix Ec Tab) 40 mg PO 0600 [facility]; Protocol Last Admin: 09/12/18 05:41 Dose: 40 mg Polyethylene Glycol (Miralax) 17 gm PO BID [facility] Last Admin: 09/12/18 10:11 Dose: 17 gm Quetiapine Fumarate (Seroquel) 25 mg PO HS [facility]; Protocol Last Admin: 09/11/18 21:17 Dose: 25 mg Tamsulosin HCl (Flomax) 0.4 mg PO 1830 [facility]; Protocol Last Admin: 09/11/18 17:37 Dose: 0.4 mg Physical Exam - Constitutional Appears: Well, Non-toxic, No Acute Distress - Head Exam Head Exam: ATRAUMATIC, NORMAL INSPECTION - Eye Exam Eye Exam: EOMI, Normal appearance, PERRL. absent: Scleral icterus - ENT Exam ENT Exam: Mucous Membranes Moist - Neck Exam Neck exam: Positive for: Full Rom, Normal Inspection. Negative for: Tenderness - Respiratory Exam Respiratory Exam: Clear to Auscultation Bilateral, NORMAL BREATHING PATTERN. absent: Rales, Rhonchi, Wheezes - Cardiovascular Exam Cardiovascular Exam: REGULAR RHYTHM, +S1, +S2, Systolic Murmur. absent: Tac hycardia, JVD - GI/Abdominal Exam GI & Abdominal Exam: Hernia, Normal Bowel Sounds, Soft. absent: Distended, Firm, Guarding - Exam Exam: Scrotal Swelling. absent: Testicular Tenderness, Testicular Vertical Lie, Bladder Distension Additional comments: very large (approx size of a football) bilateral non-incarcerated reducible inguinal hernia protruding into the scrotum that is not painful - Extremities Exam Extremities exam: Positive for: normal inspection. Negative for: calf tenderness - Neurological Exam Neurological exam: Alert, Oriented x3 - Skin Skin Exam: Intact, Normal Color, Warm Results - Vital Signs Recent Vital Signs: Last Vital Signs Temp 98.2 F 09/11/18 16:00 Pulse 81 09/11/18 16:25 Resp 16 09/11/18 16:00 BP 138/67 09/12/18 10:11 Pulse Ox 98 09/11/18 16:25 - Labs Result Diagrams: 09/12/18 06:11 09/12/18 06:11 Labs: Laboratory Results - last 24 hr 09/12/18 09/12/18 06:11 06:11 WBC 20.9 H RBC 3.28 L Hgb 10.5 L Hct 32.1 L MCV 97.9 MCH 32.0 MCHC 32.7 RDW 14.8 H Plt Count 96 L MPV 10.5 Gran % 6.8 L Lymph % (Auto) 86.9 H [place] % (Auto) 5.6 Eos % (Auto) 0.5 L Baso % (Auto) 0.2 Gran # 1.42 Lymph # (Auto) 18.1 H [place] # (Auto) 1.2 H Eos # (Auto) 0.1 Baso # (Auto) 0.04 Neutrophils % (Manual) 15 L Lymphocytes % (Manual) 84 H Monocytes % (Manual) 1 Platelet Evaluation Low Sodium 141 Potassium 3.7 Chloride 107 Carbon Dioxide 28 Anion Gap 11 BUN 23 H Creatinine 1.3 Est GFR ( Amer) > 60 Est GFR (Non-Af Amer) 53 Random Glucose 97 Calcium 8.9 Total Bilirubin 0.7 AST 24 ALT 20 Alkaline Phosphatase 83 Total Protein 5.5 L Albumin 3.5 Globulin 2.0 Albumin/Globulin Ratio 1.7 Assessment & Plan - Assessment and Plan (Free Text) Plan: Mr Virk is a 82 year old male with a PMHx of CLL, HTN, HLD, BPH and very large reducible bilateral inguinal hernias who was admitted originally for dizziness and syncope. On this admission patient had an abnormal stress test with ensuing cardiac cath with LOUISE placement. He was then transitioned to TCU for referral at which point he developed constipation: Constipation, Resolved -patient was started on a regimen of dulcolax, colace, miralax and given a phosphate enema on 09/11 with ensuing bowel movements (normal) and resolution of abdominal discomfort -patient has never had a colonoscopy -patient will benefit from elective screening colonoscopy however this will need to be discussed with cardiology for risk assessment Seen and discussed with Dr Downs <Giacomo Downs V - Last Filed: 09/12/18 23:02> Meds - Medications Medications: Current Medications Aspirin (Ecotrin) 81 mg PO 0800 [facility]; Protocol Last Admin: 09/12/18 08:17 Dose: 81 mg Atorvastatin Calcium (Lipitor) 40 mg PO DIN [facility]; Protocol Last Admin: 09/12/18 17:03 Dose: 40 mg Bisacodyl (Dulcolax) 5 mg PO BID PRN; Protocol PRN Reason: Constipation Clopidogrel Bisulfate (Plavix) 75 mg PO DAILY [facility]; Protocol Last Admin: 09/12/18 10:12 Dose: 75 mg Docusate Sodium (Colace) 100 mg PO TID [facility]; Protocol Last Admin: 09/12/18 17:04 Dose: 100 mg Finasteride (Proscar) 5 mg PO DAILY [facility]; Protocol Last Admin: 09/12/18 10:12 Dose: 5 mg Levothyroxine Sodium (Synthroid) 50 mcg PO 0600 [facility]; Protocol Last Admin: 09/12/18 05:41 Dose: 50 mcg Metoprolol Tartrate (Lopressor) 12.5 mg PO BID [facility] Last Admin: 09/12/18 17:06 Dose: 12.5 mg Mirtazapine (Remeron) 15 mg PO HS [facility]; Protocol Last Admin: 09/12/18 21:43 Dose: 15 mg Mupirocin (Bactroban Ointment) 0 gm TOP BID [facility]; Protocol Last Admin: 09/12/18 17:46 Dose: 1 appl Nystatin (Nystatin Oral Susp) 5 ml PO QID [facility]; Protocol Last Admin: 09/12/18 21:43 Dose: 5 ml Pantoprazole Sodium (Protonix Ec Tab) 40 mg PO 0600 [facility]; Protocol Last Admin: 09/12/18 05:41 Dose: 40 mg Polyethylene Glycol (Miralax) 17 gm PO BID [facility] Last Admin: 09/12/18 17:07 Dose: Not Given Quetiapine Fumarate (Seroquel) 25 mg PO HS [facility]; Protocol Last Admin: 09/12/18 21:43 Dose: 25 mg Tamsulosin HCl (Flomax) 0.4 mg PO 1830 [facility]; Protocol Last Admin: 09/12/18 17:46 Dose: 0.4 mg Results - Vital Signs Recent Vital Signs: Last Vital Signs Temp 98.2 F 09/12/18 16:00 Pulse 82 09/12/18 17:06 Resp 18 09/12/18 16:00 BP 111/57 L 09/12/18 17:06 Pulse Ox 97 09/12/18 16:33 - Labs Result Diagrams: 09/12/18 06:11 09/12/18 06:11 Labs: Laboratory Results - last 24 hr 09/12/18 09/12/18 06:11 06:11 WBC 20.9 H RBC 3.28 L Hgb 10.5 L Hct 32.1 L MCV 97.9 MCH 32.0 MCHC 32.7 RDW 14.8 H Plt Count 96 L MPV 10.5 Gran % 6.8 L Lymph % (Auto) 86.9 H [place] % (Auto) 5.6 Eos % (Auto) 0.5 L Baso % (Auto) 0.2 Gran # 1.42 Lymph # (Auto) 18.1 H [place] # (Auto) 1.2 H Eos # (Auto) 0.1 Baso # (Auto) 0.04 Neutrophils % (Manual) 15 L Lymphocytes % (Manual) 84 H Monocytes % (Manual) 1 Platelet Evaluation Low Sodium 141 Potassium 3.7 Chloride 107 Carbon Dioxide 28 Anion Gap 11 BUN 23 H Creatinine 1.3 Est GFR ( Amer) > 60 Est GFR (Non-Af Amer) 53 Random Glucose 97 Calcium 8.9 Total Bilirubin 0.7 AST 24 ALT 20 Alkaline Phosphatase 83 Total Protein 5.5 L Albumin 3.5 Globulin 2.0 Albumin/Globulin Ratio 1.7 Attending/Attestation - Attestation I have personally seen and examined this patient.: Yes I have fully participated in the care of the patient.: Yes I have reviewed all pertinent clinical information: Yes Notes (Text): This is an addendum to GI consult report dictated by the Podiatry Teacher.The patient was seen and evaluated earlier. Medical records, lab studies, imagings were reviewed. Last 24 hours events reviewed. Agreed with the above treatment plan as outlined in Podiatry Teacher 's notes with the addition of the following This patient finally had a large bowl movement Feels better Patient has a large inguinoscrotal hernia sp recent cath and recent LOUISE placement Patient would benefit from elective colonoscopy and surgical evaluation 09/12/18 22:59
--- NOTE | 2018-09-12 13:12 | PN ---
DATE: 09/12/2018 LOCATION: The patient is in room 319, bed 1. REASON FOR CONSULTATION AND FOLLOWUP: Status post PTCA of mid RCA and RV branch, deconditioning. SUBJECTIVE: The patient is lying flat in bed without any cardiac symptoms. No chest pain, shortness of breath or palpitation. PHYSICAL EXAMINATION: VITAL SIGNS: Blood pressure 138/67, respiration 18, pulse 81, the patient is afebrile. HEENT: Head is normocephalic. Eyes: Pupils normal. Conjunctivae slightly pale. NECK: JVP low. Carotids equal. THORAX: AP diameter normal. LUNGS: No rales. CARDIOVASCULAR: S1 and S2. ABDOMEN: Soft. No tenderness. No organomegaly. Bowel sounds normal. EXTREMITIES: No clubbing. No cyanosis. LABORATORY DATA: WBC 20.9, hemoglobin 10.5, hematocrit 32.1 and platelets 96,000. Sodium 141, potassium 3.7, BUN 23, creatinine 1.3. AST and ALT are normal. Calcium 8.9 and glucose 97. DIAGNOSES: Chronic lymphocytic leukemia, hypertension, admitted with dizziness, multiple coronary artery stenosis, abnormal stress test. The patient underwent cardiac catheterization with stenting of mid right coronary artery to right ventricular branch, deconditioning. PLAN: The patient is getting physical therapy for deconditioning without any cardiac symptoms. The patient is on aspirin 81 mg daily, Flomax 0.4 mg oral daily, Lipitor 40 mg oral daily, metoprolol tartrate 12.5 mg twice a day, Plavix 75 mg daily, Proscar 5 mg oral daily, Seroquel 25 mg at bedtime, levothyroxine 50 mcg oral daily, Remeron 15 mg oral at bedtime. We will continue current therapy and continue physical therapy. We will follow with you. Trudi Jama MD
--- NOTE | 2018-09-12 14:40 | PN ---
DATE: 09/11/2018 SUBJECTIVE: The patient complains of constipation in spite of MiraLax and Dulcolax suppository. He was getting Amitiza at home and doing well. However, we will Get him Dulcolax suppository. Amitiza is not formulary in our hospital, so we will get him Dulcolax tablets twice a day. We will get a GI consult for him. Otherwise, there is no complaint. Please be advised this is a note for 09/11/2018. PHYSICAL EXAMINATION: VITAL SIGNS: Temperature 98.2, heart rate 81, blood pressure 150/63, respirations 16, sat 98%. HEAD AND NECK: Normal. No JVD. No thyromegaly. CHEST: Clear bilateral. CARDIAC: First sound and second sound normal. ABDOMEN: Soft, obese, nontender. He has a large inguinal non-reducible hernia. EXTREMITIES: No edema. NEUROLOGIC: Normal. LABORATORY DATA: His laboratory study, white count , hemoglobin 10.6, hematocrit 33.2, platelets 90. IMPRESSION: 1. Chronic constipation. The patient, in presence of anemia definitely needs colonoscopy. We will get Dr. Downs, he was initially resistant to do it. The hernia is large and huge, and I do not know if colonoscopy can be performed. If this huge, large hernia colon could be inside, we will get Dr. Downs to see. The patient just had a coronary artery stent put in and hernia repair will necessitate six months at least on Plavix. Then, we will go ahead and fix the hernia. I discussed all these details with the patient, he understands. 2. Chronic lymphocytic leukemia with low platelets. Anemia could be related to chronic lymphocytic leukemia; however, iron deficiency anemia is possibility and the patient will need a colonoscopy. Most likely, we have to fix the hernia first after we fix the coronary. 3. Coronary artery disease. Right coronary artery stenosis, status post stenting. Continue Plavix and aspirin. 4. Hypothyroidism. 5. Prostate enlargement. PLAN: Continue current therapy. Follow up clinically. Hany Ag MD
[2018-09-13] MEDS: Levothyroxine 50 MCG TAB PO SCH (06:31)
[2018-09-13] MEDS: Pantoprazole 40 mg EC Tab PO SCH (06:31)
[2018-09-13] MEDS: Mupirocin 2% Ointment 15 GM TUBE TOP SCH ×2 (09:33→17:30)
[2018-09-13] MEDS: Nystatin 100,000 Units/ml Oral Susp 5 ml UD PO SCH ×4 (09:34→21:27)
[2018-09-13] MEDS: POLYETHYLENE GLYCOL 3350 17 GM/Dose PACKET PO SCH ×2 (09:34→17:32)
--- NOTE | 2018-09-13 13:31 | PN ---
DATE: 09/13/2018 LOCATION: The patient is in room 319, bed 1. REASON FOR CONSULTATION AND FOLLOWUP: Status post PTCA of mid RCA and RV branch, deconditioning. SUBJECTIVE: The patient is lying comfortable in bed. Denies any chest pain, shortness of breath or palpitation. PHYSICAL EXAMINATION: VITAL SIGNS: Blood pressure 126/64, respirations 18, pulse 80, temperature, the patient is afebrile. HEENT: Head is normocephalic. Eyes: Pupils normal. Conjunctivae slightly pale. NECK: JVP low. Carotids equal. THORAX: AP diameter normal. LUNGS: Clear. CARDIOVASCULAR: S1 and S2. ABDOMEN: Soft. No tenderness. No organomegaly. EXTREMITIES: No clubbing. No cyanosis. LABORATORY DATA: Labs were done yesterday, they were reported in my progress note yesterday. DIAGNOSES: Chronic lymphocytic leukemia, hypertension, admitted with dizziness, multiple coronary artery stenoses, abnormal stress test. The patient had cardiac catheterization with stenting of the mid right coronary artery to right ventricular branch, deconditioning. PLAN: To continue physical therapy. The patient denies any cardiac symptoms in therapy. The patient is on aspirin, Flomax, Lipitor, metoprolol, Plavix, Proscar, Seroquel, levothyroxine and Remeron. We will continue this therapy. We will continue physical therapy. We will follow with you. Trudi Jama MD
[2018-09-14] MEDS: Pantoprazole 40 mg EC Tab PO SCH (06:05)
[2018-09-14] MEDS: Levothyroxine 50 MCG TAB PO SCH (06:05)
[2018-09-14] MEDS: Mupirocin 2% Ointment 15 GM TUBE TOP SCH ×2 (09:11→17:20)
[2018-09-14] MEDS: Nystatin 100,000 Units/ml Oral Susp 5 ml UD PO SCH ×4 (09:12→21:20)
[2018-09-14] MEDS: POLYETHYLENE GLYCOL 3350 17 GM/Dose PACKET PO SCH ×2 (09:12→17:23)
--- NOTE | 2018-09-14 16:11 | PN ---
DATE: 09/14/2018 LOCATION: The patient is in room 319, bed 1. REASON FOR CONSULTATION AND FOLLOWUP: Status post PTCA of mid RCA and RV branch, deconditioning. SUBJECTIVE: The patient is lying flat in bed without any chest pain, shortness of breath. He is also getting physical therapy. During physical therapy, he denies any cardiac complaints. PHYSICAL EXAMINATION VITAL SIGNS: Blood pressure is 106/50, respirations 18, pulse 60, temperature 97.6. HEENT: Head is normocephalic. Eyes; pupils normal, conjunctivae slightly pale. NECK: JVP low. Carotids equal. THORAX: AP diameter normal. LUNGS: Clear. CARDIOVASCULAR: S1, S2. ABDOMEN: Soft. No tenderness. No organomegaly. Bowel sounds normal. EXTREMITIES: No clubbing, no cyanosis. LABORATORY DATA: Labs were done on 09/12/2018 and those were reported in our previous progress notes. DIAGNOSES: Chronic lymphocytic leukemia, hypertension, admitted with dizziness, multiple coronary artery stenosis, abnormal stress test. The patient had cardiac catheterization and stenting of the mid right coronary artery to right ventricular branch, deconditioning. PLAN: The patient to continue with physical therapy and the patient to continue with aspirin, Lipitor, Flomax, metoprolol, Plavix, Proscar, Seroquel, levothyroxine, and Remeron. The patient should continue physical therapy. From a cardiac point of view, he is asymptomatic. We will follow with you. Trudi Jama MD (Delete this signature block when dictator is a preceptor.) cc: MD Loreto (Delete if not dictated.)
[2018-09-14 16:39] VITALS: RESP 16; TEMP 98.5; O2SAT 96
--- NOTE | 2018-09-15 00:50 | PN ---
DATE: 09/12/2018 SUBJECTIVE: This is an 82-year-old male. The patient is stable. No complaint. Move his bowels. He is still having problem with urine, on and off due to his big huge inguinal hernia, right more than left. PHYSICAL EXAMINATION VITAL SIGNS: Otherwise stable. Temperature 98.2, heart rate 82, blood pressure 111/57, respirations 18, sat 97%. HEAD AND NECK: Normal. No JVD. No thyromegaly. CHEST: Clear bilaterally. CARDIAC: First sound and second sound normal. No murmur, rub or gallop. ABDOMEN: Soft, obese, nontender. Large inguinal hernia noted. EXTREMITIES: No edema. NEUROLOGIC: Normal. LABORATORY DATA: Laboratory study, white count 20.9, hemoglobin 10.5, hematocrit 32.1, platelets 96. Chemistry sodium 141, potassium 3.7, chloride 107, bicarb 28, BUN 23 and creatinine 1.3. Blood sugar is 127. Chemistry, AST and ALT, alk phos is normal. IMPRESSION AND PLAN: 1. Coronary artery disease, status post right coronary artery stent. Continue Plavix and aspirin. 2. Chronic lymphocytic leukemia with anemia and thrombocytopenia. Follow up with oncologist, may need a bone marrow biopsy. 3. Large inguinal hernia. 4. Hypercholesterolemia, chronic constipation. Continue MiraLax, Dulcolax, seems doing well with that. 5. Prostate enlargement. The patient need to see a urologist as outpatient. We will schedule that as an outpatient. The patient is 82. We will follow up clinically at this time. Continue current treatment including Bactroban, Colace, Dulcolax, aspirin, Flomax, Lipitor 40, Lopressor 12.5 b.i.d., Miralax, nystatin cream, Plavix 75, Proscar 5, Protonix 40, Remeron 15 at bedtime, Seroquel 25 at bedtime and Synthroid 50 mcg once a day. Hany Ag MD
--- NOTE | 2018-09-15 01:36 | PN ---
DATE: 09/13/2018 SUBJECTIVE: The patient doing well. He moved his bowels. There is still some urine dribbling. We will get a bladder scan. The patient advised to know how to use because of large inguinal hernia he has to pull his penis from the sac from the hernia site pulling out so the urinal can match with the shaft of his penis and necessitate the bladder evacuation and the urination process. I did explain that to him by . The patient otherwise is stable, moved his bowels, doing well, eating well and moving around. No dizziness. PHYSICAL EXAMINATION: VITAL SIGNS: Temperature is 98, heart rate is 80, blood pressure 122/50, respirations 16, sat 96% on room air. HEAD AND NECK: Normal. No JVD. No thyromegaly. CHEST: Clear bilateral. CARDIAC: First sound and second sound normal. ABDOMEN: Soft, nontender. Large inguinal hernia. EXTREMITIES: No edema. NEUROLOGICAL: Normal. LABORATORY DATA: Sodium 141, potassium 3.7, chloride 107, bicarb 28, BUN 23, creatinine 1.3, blood sugar of 127, liver function test is normal. CBC shows white count 20.9, hemoglobin 10.5, hematocrit . IMPRESSION AND PLAN: 1. Pancytopenia secondary to chronic lymphocytic leukemia. 2. Dizziness, unsteadiness, generalized weakness. The patient seems getting physical therapy, doing better. Walking around with a walker. 3. Constipation, better. Continue MiraLax, Dulcolax and Colace. 4. Coronary artery disease, status post right coronary artery stenting. 5. Urine incontinence, some mechanical problems. Continue Flomax and Proscar. The patient is 82, he needs to see a urologist. The patient has problem with the large huge inguinal hernia that is causing encroachment in the penis area. Continue to empty the bladder on a regular basis. We will get a bladder scan in the morning and we will follow up. Hany Ag MD
--- NOTE | 2018-09-15 05:10 | PN ---
DATE: 09/15/2018 HEMATOLOGY/ONCOLOGY FOLLOWUP NOTE LOCATION: Patient is in [facility], room 3A19, bed 1. 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 Based on the flow cytometric analysis, it appears it is CLL. Patient is now in TCU for deconditioning, status post PTCA for mild RCA and RV branch blockages. SUBJECTIVE: Patient is sitting out of bed in chair, getting his physical therapy. His constipation appears to be resolved, and he denies any significant complaints at this time. PHYSICAL EXAMINATION VITAL SIGNS: Stable. Blood pressure is 105/60, respirations 18, pulse of 60, T-max is 98.4. HEENT: Head is normocephalic, atraumatic. Conjunctivae pale. Sclerae are anicteric. Pupils are equally reactive to light and accommodation. Examination of the oropharynx reveals no oropharyngeal lesions. NECK: Supple. There is no adenopathy. No jugular venous distention noted. LUNGS: Clear to percussion, auscultation. CARDIOVASCULAR SYSTEM: Reveals S1 and S2 to be normal. No gallop or murmur is heard. ABDOMEN: Soft, nontender. Liver and spleen are not palpable. EXTREMITIES: Reveals no cyanosis, clubbing, or edema at this point in time. SKIN: Patient has a pigmented lesion, which is slightly ulcerated on the left hand, on the wrist, which eventually will need to be excised or biopsied, and surgical consultation and attention to that has been brought to the primary team as well who is taking care of the patient. Currently, the patient is on Plavix and probably, we may have to wait for some time before attempting to do any biopsies on the arm as the patient has been recently postprocedure for stenting for his coronary artery disease. LABORATORY DATA: Reviewed and his flow cytometric analysis reports are still pending. White count from 09/12/2018 showed white count of 20.9, hemoglobin 10.5, hematocrit 32, and platelet count of 96,000. Chemistries revealed Chem-6 to be within normal limits on the same date of 09/12/2018. Requested for blood work again on Saturday, which would be 09/15/2018. PLAN: We will follow the patient with you and make appropriate recommendation. No active intervention from perspective at this point is indicated. Further testing that we have been requesting for has been submitted, and they are not yet available to us at this point in time. We will keep you posted as soon as we get those results as well. Josue Tran MD
[2018-09-15] MEDS: Levothyroxine 50 MCG TAB PO SCH (05:44)
[2018-09-15] MEDS: Pantoprazole 40 mg EC Tab PO SCH (05:45)
[2018-09-15] MEDS: Mupirocin 2% Ointment 15 GM TUBE TOP SCH (10:00)
[2018-09-15] MEDS: Nystatin 100,000 Units/ml Oral Susp 5 ml UD PO SCH ×2 (10:01→13:45)
[2018-09-15] MEDS: POLYETHYLENE GLYCOL 3350 17 GM/Dose PACKET PO SCH (10:01)
[2018-09-15 10:14] VITALS: BP 128/60; PULSE 86
--- NOTE | 2018-09-15 14:31 | CP.PCM.PN ---
Subjective - Date & Time of Evaluation Date of Evaluation: 09/15/18 Time of Evaluation: 13:00 - Subjective Subjective: Bharathi Rahman- Internal Medicine Resident- Progress Note on Behalf of Heme/Onc Subjective: Patient seen and assessed at bedside. No acute events noted overnight. Offers no new complaints at this time. Denies fever, chills, chest pain, SOB. 12 point ROS negative except as indicated in HPI Physical Examination: - Constitutional Appears: Non-toxic, No Acute Distress - Head Exam Head Exam: ATRAUMATIC, NORMOCEPHALIC - Eye Exam Eye Exam: EOMI, PERRL - ENT Exam ENT Exam: Mucous Membranes Moist - Neck Exam Neck exam: Positive for: Full Rom, Normal Inspection. Negative for: Lymphadenopathy, Meningismus, Tenderness, Thyromegaly - Respiratory Exam Respiratory Exam: Clear to Auscultation Bilateral, NORMAL BREATHING PATTERN. absent: Accessory Muscle Use, Decreased Breath Sounds, Rhonchi, Wheezes, Respiratory Distress - Cardiovascular Exam Cardiovascular Exam: +S1, +S2 - GI/Abdominal Exam GI & Abdominal Exam: Normal Bowel Sounds, Soft, Hernia (Non-tender; Reducible). absent: Tenderness - Extremities Exam Extremities exam: Negative for: calf tenderness - Neurological Exam Neurological exam: Alert, Oriented x3 - Psychiatric Exam Psychiatric exam: Normal Affect, Normal Mood Assessment and Plan 82 year old male with a past medical history significant for CLL, HTN, HLD, BPH and inguinal hernia who was admitted for dizziness and syncope for two days while at home. Hematology/Oncology was consulted for patients history of CLL and thrombocytopenia. 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 Tran. Objective - Vital Signs/Intake and Output Vital Signs (last 24 hours): Temp Pulse Resp BP Pulse Ox 98.5 F 86 16 128/60 96 09/14/18 16:00 09/15/18 10:00 09/14/18 16:00 09/15/18 10:00 09/14/18 16:00 Intake and Output: 09/15/18 09/15/18 06:59 18:59 Intake Total 420 Balance 420 - Labs Labs: 09/12/18 06:11 09/12/18 06:11
--- NOTE | 2018-09-15 18:52 | PN ---
DATE: 09/15/2018 REASON FOR CONSULTATION AND FOLLOWUP: Status post PTCA of mid RCA and RV branch and deconditioning of the body. SUBJECTIVE: The patient denies any chest pain, shortness of breath, or any palpitation. OBJECTIVE: GENERAL: Not in apparent distress, sitting at the side, awaiting to be discharged. VITAL SIGNS: Temperature afebrile, heart rate 83, and blood pressure 120/60. HEENT: PERRLA. Extraocular muscles intact. NECK: Supple. No carotid bruit or thyromegaly. CHEST: Clear to auscultation. HEART: S1 and S2 regular. ABDOMEN: Soft. EXTREMITIES: Clubbing and cyanosis negative. LABORATORY DATA: Blood workup as follows: WBC 20.9, hemoglobin 10, hematocrit 32.1, and platelet count 96,000. Chemistry shows sodium 140, potassium 3.7, chloride of 107, CO2 of 28, anion gap of 11, BUN 23, and creatinine 1.3 as of 09/12/2018. IMPRESSION: An 82-year-old male with past medical history of hypertension, type 2 diabetes, admitted with dizziness, multiple stress test abnormal, and subsequently underwent cardiac catheterization with stenting of mid RCA to right ventricular branch, now in the Transitional Care Unit for deconditioning of the body. RECOMMENDATIONS: Continue aspirin and continue Plavix, mandatory for one year, preferably extended period of the time. Continue Flomax for BPH. Continue atorvastatin. Continue low-dose beta-cm as tolerated. CVS status is stable. Continue rehab, possible discharge today or tomorrow. If the patient stays, we will repeat the blood workup in the morning. Thank you Dr. Ag for providing us the opportunity in taking care of Juni Virk. Trudi Silva MD
== END 2018-09-15 13:59 | disposition home or self-care (01) | DRG 945 ==
LOC: TRCU 15:59
PROVIDERS: ADMIT Internal Medicine; ATTEND Internal Medicine
PROC: F07Z9ZZ Gait Training/Functional Ambulation Treatment (ICD-10-PCS; principal; 2018-09-08)
PROC: F08Z4ZZ Home Management Treatment (ICD-10-PCS; 2018-09-08)
DX: R53.1 Weakness (principal); C91.10 Chronic lymphocytic leukemia of B-cell type not having achieved remission; D61.818 Other pancytopenia; I25.10 Atherosclerotic heart disease of native coronary artery without angina pectoris; I10 Essential (primary) hypertension; I25.82 Chronic total occlusion of coronary artery; E11.9 Type 2 diabetes mellitus without complications; N40.0 Benign prostatic hyperplasia without lower urinary tract symptoms; K40.20 Bilateral inguinal hernia, without obstruction or gangrene, not specified as recurrent; E78.5 Hyperlipidemia, unspecified; E03.9 Hypothyroidism, unspecified; E78.00 Pure hypercholesterolemia, unspecified; K59.09 Other constipation; K21.9 Gastro-esophageal reflux disease without esophagitis; Z95.5 Presence of coronary angioplasty implant and graft

== ENCOUNTER 2018-10-13 08:38 | Inpatient (IN) | payer BC, MEDICARE ==
--- NOTE | 2018-10-13 09:20 | ED PDOC ---
Arrival/HPI - General Chief Complaint: Male Genitourinary Historian: Patient, Family (cousin) - History of Present Illness Narrative History of Present Illness (Text): 82 y/o male with PMH of CLL, HTN, HLD, BPH, CAD (s/p stents 08/2018), constipation, and inguinal hernia sent to the ED by PMD Dr. Hany Ag c/o diarrhea and fecal incontinence x 2 days. Patient's cousin states that the patient has been taking too many laxatives and stool softeners, causing him to have diarrhea over the last few days. Associated severe rectal pain yesterday, none today. Patient wears a diaper at baseline. Last admitted to the hospital 09/07/18 for cardiac syncope that resulted in the placement of cardiac stents. Since that time patient has been struggling with constipation. Pt lives alone and has a difficult time caring for himself. No current physical complaints. Denies fevers, chills, chest pain, SOB, abdominal pain, nausea, vomiting, back pain, urinary symptoms, numbness, weakness, paresthesias, headache, cough, congestion, or any other associated symptoms. Past Medical History - Provider Review Nursing Documentation Reviewed: Yes - Infectious Disease Hx of Infectious Diseases: None - Cardiac Hx Cardiac Disorders: Yes Hx Hypertension: Yes - Pulmonary Hx Respiratory Disorders: No - Neurological Hx Neurological Disorder: Yes Hx Dizziness: Yes - HEENT Hx HEENT Disorder: Yes Other/Comment: [id number] - Renal Hx Renal Disorder: No - Endocrine/Metabolic Hx Endocrine Disorders: No - Hematological/Oncological Hx Blood Disorders: Yes Other/Comment: leukemia - Integumentary Hx Dermatological Disorder: No - Musculoskeletal/Rheumatological Hx Falls: Yes (08/23/18) - Gastrointestinal Other/Comment: large inguinal hernia - Genitourinary/Gynecological Hx Genitourinary Disorders: Yes Hx Prostate Problems: Yes (hernia / enlarged prostate) - Psychiatric Hx Psychophysiologic Disorder: No Hx Substance Use: No - Anesthesia Hx Anesthesia Reactions: No Family/Social History - Physician Review Nursing Documentation Reviewed: Yes Family/Social History: No Known Family HX Smoking Status: Unknown If Ever Smoked Hx Alcohol Use: No Hx Substance Use: No Allergies/Home Meds Allergies/Adverse Reactions: Allergies No Known Allergies Allergy (Verified 09/11/18 22:32) Home Medications: Home Meds Medication Instructions Recorded Confirmed Atenolol [Tenormin] 25 mg PO DAILY 09/03/18 10/13/18 Calcium Carbonate [Caltrate] 650 mg PO BID 09/03/18 10/13/18 Famotidine [Pepcid] 40 mg PO HS 09/03/18 10/13/18 Isosorbide Mononitrate [Imdur] 60 mg PO DAILY 09/03/18 10/13/18 Lubiprostone [Amitiza] 24 mcg PO DAILY 09/03/18 10/13/18 Multivitamin [Multiple Vitamins] 40 mg PO DAILY 09/03/18 10/13/18 Omeprazole 40 mg PO WM 09/03/18 10/13/18 Polyethylene Glycol 3350 [Miralax] 17 gm PO BID PRN 09/03/18 10/13/18 Review of Systems - Physician Review All systems were reviewed & negative as marked: Yes - Review of Systems Constitutional: Normal. absent: Fevers Eyes: Normal. absent: Vision Changes, Photophobia, Eye Pain, Other ENT: Normal. absent: Hearing Changes, Tinnitus, TMJ Pain, Voice Changes, Sore Throat, Rhinorrhea, Epistaxis, Sinus Congestion, Other Respiratory: Normal. absent: SOB, Cough, Sputum, Wheezing, Other Cardiovascular: Normal. absent: Chest Pain, Palpitations, Edema, Calf Pain, MROA, Orthopnea, SY, Syncope, Other Gastrointestinal: Normal, Constipation, Diarrhea. absent: Abdominal Pain, Stool Changes, Nausea, Vomiting, Appetite Changes, Hematochezia, Hematemesis, Anorexia, Food Intolerance, Other Genitourinary Male: Normal. absent: Dysuria, Frequency, Hematuria, Urinary Output Changes, Other Musculoskeletal: Normal. absent: Arthralgias, Back Pain, Neck Pain, Joint Swelling, Myalgias, Other Skin: Normal. absent: Rash, Pruritis, Skin Lesions, Laceration, Abscess, Ulcer, Cellulitis, Other Neurological: Normal. absent: Headache, Dizziness, Focal Weakness, Gait Changes, Speech Changes, SC, Facial Droop, DE, Disequilibrium, SE, Seizure, Other Endocrine: Normal Hemo/Lymphatic: Normal Psychiatric: Normal Physical Exam Vital Signs Reviewed: Yes Vital Signs Temp Pulse Resp BP Pulse Ox 10/13/18 09:07 98.7 F 74 18 153/70 H 99 Temperature: Afebrile Blood Pressure: Normal Pulse: Regular Respiratory Rate: Normal Appearance: Positive for: Well-Appearing, Non-Toxic, Comfortable Pain Distress: None Mental Status: Positive for: Alert and Oriented X 3 - Systems Exam Head: Present: Atraumatic, Normocephalic Pupils: Present: PERRL Extroacular Muscles: Present: EOMI Conjunctiva: Present: Normal Mouth: Present: Moist Mucous Membranes Neck: Present: Normal Range of Motion. No: Lymphadenopathy Respiratory/Chest: Present: Clear to Auscultation, Good Air Exchange. No: Respiratory Distress, Accessory Muscle Use Cardiovascular: Present: Regular Rate and Rhythm, Normal S1, S2, Peripheal Pulses Present Abdomen: Present: Normal Bowel Sounds, Hernias (large bilateral inguinal hernias; unable to reduce secondary to size ). No: Tenderness, Distention, Peritoneal Signs, Rebound, Guarding Rectal: Present: Normal Rectal Tone, Other (fecal impaction). No: Occult Blood, Rectal Tenderness, Gross Blood, Hemorrhoids, Nodule/Mass/Lesions Genitourinary Male: Present: Normal External Genitalia, Hernias (large bilateral inguinal hernias; unable to reduce secondary to size ). No: Circumcised Penis, Lesions, Penile Discharge, Testicle Tenderness, Penile Swelling, Masses Back: Present: Normal Inspection Upper Extremity: Present: Normal Inspection, Normal ROM, NORMAL PULSES, Neurovascularly Intact, Capillary Refill < 2s. No: Cyanosis, Edema Lower Extremity: Present: Normal Inspection, NORMAL PULSES, Normal ROM, Neurovascularly Intact, Capillary Refill < 2 s. No: Edema Neurological: Present: GCS=15, CN II-XII Intact, Speech Normal, Motor Func Grossly Intact, Normal Sensory Function, Gait Normal, Memory Normal Skin: Present: Warm, Dry, Normal Color. No: Rashes Lymphatic: No: Cervical Adenopathy Psychiatric: Present: Alert, Oriented x 3, Normal Insight, Normal Concentration, Normal Affect, Normal Mood Medical Decision Making ED Course and Treatment: Initial Plan: * CBC, CMP * Lipase, Amylase * Coags * Cultures * EKG * CXR * CT with PO & IV contrast 10:[address] Ag, who would like patient admitted to his service with GI consult, Dr. Downs. Recommends CT Abd/Pelvis with PO/IV contrast and workup for abdominal pain. 12:45 CT shows no obstruction; fecal impaction; bilateral hydronephrosis 13:[address] Ag, who accepts patient for inpatient admission to med/surg floor with diagnosis of hernia, fecal impaction. Asks for additional urology consult. Patient and family aware of plan. Patient with stable vital signs at this time. - Lab Interpretations Lab Results: 10/13/18 10:00 10/13/18 10:00 Lab Results 10/13/18 10:00: Sodium 143, Potassium 4.4, Chloride 111 H, Carbon Dioxide 27, Anion Gap 10, BUN 22 H, Creatinine 1.0, Est GFR ( Amer) > 60, Est GFR (Non-Af Amer) > 60, Random Glucose 94, Calcium 9.1, Total Bilirubin 0.5, AST 21, ALT 24, Alkaline Phosphatase 87, Total Protein 6.1, Albumin 3.9, Globulin 2.2, Albumin/Globulin Ratio 1.8, Amylase 64, Lipase 60 10/13/18 10:00: PT 11.2, INR 0.97, APTT 28.0 10/13/18 10:00: WBC 17.5 H, RBC 3.48 L, Hgb 11.1 L, Hct 34.5 L, MCV 99.1, MCH 31.9, MCHC 32.2, RDW 15.1 H, Plt Count 71 L, MPV 10.6, Gran % 11.4 L, Lymph % (Auto) 84.6 H, [place] % (Auto) 3.1, Eos % (Auto) 0.7 L, Baso % (Auto) 0.2, Gran # 1.99, Lymph # (Auto) 14.8 H, [place] # (Auto) 0.5, Eos # (Auto) 0.1, Baso # (Auto) 0.04, Neutrophils % (Manual) 12 L, Lymphocytes % (Manual) 79 H, Atypical Lymphs % 3 H, Monocytes % (Manual) 5, Basophils % (Manual) 1, Platelet Evaluation Low I have reviewed the lab results: Yes - RAD Interpretation Narrative RAD Interpretations (Text): 10/13/18 20:23 CT Abd/Pelvis with PO and IV Contrast: FINDINGS: LOWER THORAX: Cardiomegaly and extensive coronary artery disease appreciated. LIVER: Unremarkable. No gross lesion or ductal dilatation. GALLBLADDER AND BILE DUCTS: Unremarkable. PANCREAS: Unremarkable. No gross lesion or ductal dilatation. SPLEEN: Splenomegaly up to 19.8 cm. No splenic cyst or mass appreciable. ADRENALS: Unremarkable. No mass. KIDNEYS AND URETERS: Subtle prominence of the bilateral pelvocaliceal system is appreciated without overt hydronephrosis. This could be a function of distention of the urinary bladder and related hydrostatic pressure elevation. Clinically correlate further. Exophytic cysts are seen related to the lower pole left kidney posteriorly. No solid mass. VASCULATURE: Nonaneurysmal abdominal aortic calcific atherosclerotic changes are identified. BOWEL: Throughout the stomach is unremarkable, mildly distended. No bowel obstruction is grossly evident however rectal fecal impaction is appreciated up to 9.2 cm greatest transverse dimension. There are large bilateral inguinal hernias identified containing large bowel at the left inguinal region and small bowel at the right. There is also a lateral right ventral abdominal hernia cephalad to the right inguinal hernia by several cm treating herniated loops of small bowel and mesentery as well. There is some loops of small bowel involved in both of these right-sided hernias. Cecum appears elevated at the right hemidiaphragm at the mid right pericolic gutter. APPENDIX: Not identified. No definite CT evidence of appendicitis. PERITONEUM: Unremarkable. No free fluid. No free air. LYMPH NODES: Unremarkable. No enlarged lymph nodes. BLADDER: Moderately distended and mildly thick-walled without focal nodularity or urolithiasis associated. REPRODUCTIVE: Mild prostate gland enlargement. BONES: Grade 1 spondylolisthesis L5-S1 with L5 anterior S1 with bilateral L5 spondylolysis identified. OTHER FINDINGS: None. IMPRESSION: 1. Large bilateral inguinal hernias as well as a moderate size right lateral abdominal hernia without definite bowel obstruction. No definitive incarceration pattern. Moderate rectal fecal impaction. Transverse and left tuyet colon segments are involved than the left inguinal hernia with small bowel involved in both right lateral as well as right inguinal hernia as discussed above. 2. Borderline bilateral hydronephrosis with potential hydrostatic cause given distended urinary bladder. Clinically correlate further. 3. Other lesser findings as discussed above. CXR: FINDINGS: LUNGS: No active pulmonary disease. PLEURA: No significant pleural effusion identified, no pneumothorax apparent. CARDIOVASCULAR: Calcific atherosclerotic changes are seen related to the thoracic aorta. Normal cardiac size. No pulmonary vascular congestion. OSSEOUS STRUCTURES: No significant abnormalities. VISUALIZED UPPER ABDOMEN: Normal. OTHER FINDINGS: None. IMPRESSION: No interval acute cardiopulmonary disease appreciated. [employer]: Radiologist - EKG Interpretation EKG Interpretation (Text): Rate 72; NSR; Normal intervals; No STEMI Interpreted by ED Physician: Yes Type: 12 lead EKG Comparison: Com.w/previous EKG Disposition/Present on Arrival - Present on Arrival Any Indicators Present on Arrival: No History of DVT/PE: No History of Uncontrolled Diabetes: No Urinary Catheter: No History of Decub. Ulcer: No History Surgical Site Infection Following: None - Disposition Have Diagnosis and Disposition been Completed?: Yes Diagnosis: Fecal impaction Disposition: HOSPITALIZED Disposition Time: 13:00 Patient Plan: Admission Patient Problems: Current Active Problems Problem Status Onset Fecal impaction Acute Condition: STABLE
[2018-10-13 10:28] LABS: BASO # 0.04 K/mm3 (0.0-2.0); BASO % 0.2 % (0.0-3.0); EOS # 0.1 (0.0-0.7); EOS % 0.7 % (1.5-5.0); GRAN # 1.99 (1.4-6.5); GRAN % 11.4 % (50.0-68.0); HEMOGLOBIN 11.1 g/dL (14.0-18.0); LYMPH # 14.8 (1.2-3.4); LYMPH % 84.6 % (22.0-35.0); MEAN CELL VOLUME 99.1 fl (80.0-105.0); MEAN CORPUSCULAR HEMOGLOBIN 31.9 pg (25.0-35.0); MEAN CORPUSCULAR HGB CONC 32.2 g/dl (31.0-37.0); MEAN PLATELET VOLUME 10.6 fl (7.0-11.0); MONO # 0.5 (0.1-0.6); MONO % 3.1 % (1.0-6.0); PLATELET COUNT 71 10^3/uL (120.0-450.0); RBC 3.48 10^6/uL (3.5-6.1); RED CELL DISTRIBUTION WIDTH 15.1 % (11.5-14.5); WHITE BLOOD COUNT 17.5 10^3/uL (4.5-11.0)
[2018-10-13 10:33] LABS: ALB/GLOB RATIO 1.8 (1.1-1.8); ALBUMIN 3.9 g/dL (3.0-4.8); ALT/SGPT 24 U/L (7-56); AMYLASE 64 U/L (35-125); AST/SGOT 21 U/L (17-59); BLOOD UREA NITROGEN 22 mg/dL (7-21); CALCIUM 9.1 mg/dL (8.4-10.5); GFR NON-AFRICAN AMERICAN > 60; LIPASE 60 U/L (23-300)
[2018-10-13] MEDS ORDERED: Iohexol 240 (50 ml) ONE (10:34)
[2018-10-13 10:37] LABS: INR 0.97; PROTHROMBIN TIME 11.2 SECONDS (9.4-12.5)
[2018-10-13 10:49] LABS: ATYPICAL LYMPHOCYTE 3 % (0.0-0.0); BASOPHIL 1 % (0.0-1.0); LYMPHOCYTE 79 % (22.0-35.0); MONOCYTE 5 % (1.0-6.0); NEUTROPHIL 12 % (50.0-70.0)
[2018-10-13 10:50] LABS: PLATELET ESTIMATE LOW (NORMAL)
[2018-10-13] MEDS ORDERED: Iohexol 350 MG/100 ML VIAL ONE (12:05)
--- NOTE | 2018-10-13 12:55 | CT ---
Date of service: 10/13/2018 PROCEDURE: CT Abdomen and Pelvis with contrast HISTORY: constipation, lower abdominal and rectal pain COMPARISON: None. TECHNIQUE: Following oral and intravenous contrast administration, a CT examination of the abdomen and pelvis performed from the domes of the diaphragms to the symphysis pubis with reformatted datasets provided not only axial but also sagittal and coronal series. Coronal and sagittal reformats were generated. contrast dose: Omnipaque 350, 96 cc Radiation dose: Total exam DLP = 373.11 mGy-cm. This CT exam was performed using one or more of the following dose reduction techniques: Automated exposure control, adjustment of the mA and/or kV according to patient size, and/or use of iterative reconstruction technique. FINDINGS: LOWER THORAX: Cardiomegaly and extensive coronary artery disease appreciated. LIVER: Unremarkable. No gross lesion or ductal dilatation. GALLBLADDER AND BILE DUCTS: Unremarkable. PANCREAS: Unremarkable. No gross lesion or ductal dilatation. SPLEEN: Splenomegaly up to 19.8 cm. No splenic cyst or mass appreciable. ADRENALS: Unremarkable. No mass. KIDNEYS AND URETERS: Subtle prominence of the bilateral pelvocaliceal system is appreciated without overt hydronephrosis. This could be a function of distention of the urinary bladder and related hydrostatic pressure elevation. Clinically correlate further. Exophytic cysts are seen related to the lower pole left kidney posteriorly. No solid mass. VASCULATURE: Nonaneurysmal abdominal aortic calcific atherosclerotic changes are identified. BOWEL: Throughout the stomach is unremarkable, mildly distended. No bowel obstruction is grossly evident however rectal fecal impaction is appreciated up to 9.2 cm greatest transverse dimension. There are large bilateral inguinal hernias identified containing large bowel at the left inguinal region and small bowel at the right. There is also a lateral right ventral abdominal hernia cephalad to the right inguinal hernia by several cm treating herniated loops of small bowel and mesentery as well. There is some loops of small bowel involved in both of these right-sided hernias. Cecum appears elevated at the right hemidiaphragm at the mid right pericolic gutter. APPENDIX: Not identified. No definite CT evidence of appendicitis. PERITONEUM: Unremarkable. No free fluid. No free air. LYMPH NODES: Unremarkable. No enlarged lymph nodes. BLADDER: Moderately distended and mildly thick-walled without focal nodularity or urolithiasis associated. REPRODUCTIVE: Mild prostate gland enlargement. BONES: Grade 1 spondylolisthesis L5-S1 with L5 anterior S1 with bilateral L5 spondylolysis identified. OTHER FINDINGS: None. IMPRESSION: 1. Large bilateral inguinal hernias as well as a moderate size right lateral abdominal hernia without definite bowel obstruction. No definitive incarceration pattern. Moderate rectal fecal impaction. Transverse and left tuyet colon segments are involved than the left inguinal hernia with small bowel involved in both right lateral as well as right inguinal hernia as discussed above. 2. Borderline bilateral hydronephrosis with potential hydrostatic cause given distended urinary bladder. Clinically correlate further. 3. Other lesser findings as discussed above.
--- NOTE | 2018-10-13 14:14 | CP.PCM.CON ---
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 Patient s uffers with chronic constipation and has been on Amitiza outpatient. Admits that he has not had adequate stool output for the last week, only with small amounts of liquid and soft bowel movements daily with the use of suppositories. CT performed in the ED with oral contrast reveals a significantly distended rectum with fecal impaction. He denies any weight loss, rectal bleeding, nausea, vomiting, fever, chills. PMHx: See HPI PSHx: PCI FHx: Discussed with patient and denies significant family history Social: Denies any tobacco, EtOH or illicit drug use Endo: No prior endoscopic evaluations Past Patient History - Infectious Disease Hx of Infectious Diseases: None - Past Social History Smoking Status: Unknown If Ever Smoked - CARDIAC Hx Cardiac Disorders: Yes Hx Hypertension: Yes - PULMONARY Hx Respiratory Disorders: No - NEUROLOGICAL Hx Neurological Disorder: Yes Hx Dizziness: Yes - HEENT Hx HEENT Problems: Yes Other/Comment: [place] - RENAL Hx Chronic Kidney Disease: No - ENDOCRINE/METABOLIC Hx Endocrine Disorders: No - HEMATOLOGICAL/ONCOLOGICAL Hx Blood Disorders: Yes Other/Comment: leukemia - INTEGUMENTARY Hx Dermatological Problems: No - MUSCULOSKELETAL/RHEUMATOLOGICAL Hx Falls: Yes (08/23/18) - GASTROINTESTINAL Other/Comment: large inguinal hernia - GENITOURINARY/GYNECOLOGICAL Hx Genitourinary Disorders: Yes Hx Prostate Problems: Yes (hernia / enlarged prostate) - PSYCHIATRIC Hx Psychophysiologic Disorder: No Hx Substance Use: No - ANESTHESIA Hx Anesthesia Reactions: No Meds Allergies/Adverse Reactions: Allergies Allergy/AdvReac Type Severity Reaction Status Date / Time No Known Allergies Allergy Verified 09/11/18 22:32 Physical Exam - Constitutional Appears: No Acute Distress, Chronically Ill - Eye Exam Eye Exam: EOMI, PERRL - ENT Exam ENT Exam: Mucous Membranes Moist - Respiratory Exam Respiratory Exam: Clear to Auscultation Bilateral. absent: Rales, Rhonchi, Wheezes - Cardiovascular Exam Cardiovascular Exam: RRR, +S1, +S2 - GI/Abdominal Exam GI & Abdominal Exam: Hernia (inguinal), Normal Bowel Sounds, Soft, Tenderness (lower abdomen). absent: Distended, Firm, Guarding, Organomegaly, Rigid - Rectal Exam Rectal Exam: Fecal Impaction Additional comments: soft stool disimpacted from rectum, stool remained at end of examination - Exam Additional comments: significant distortion of the testicles/penis 2/2 inguinal hernias - Extremities Exam Additional comments: multiple healing wounds on LE - Neurological Exam Neurological exam: Alert, Oriented x3 - Psychiatric Exam Psychiatric exam: Anxious, Normal Affect - Skin Skin Exam: Dry, Warm Results - Vital Signs Recent Vital Signs: Last Vital Signs Temp 98.7 F 10/13/18 09:07 Pulse 70 10/13/18 13:14 Resp 18 10/13/18 13:14 BP 133/64 10/13/18 13:14 Pulse Ox 98 10/13/18 13:14 - Labs Result Diagrams: 10/13/18 10:00 10/13/18 10:00 Labs: Laboratory Results - last 24 hr 10/13/18 10/13/18 10/13/18 10:00 10:00 10:00 WBC 17.5 H RBC 3.48 L Hgb 11.1 L Hct 34.5 L MCV 99.1 MCH 31.9 MCHC 32.2 RDW 15.1 H Plt Count 71 L MPV 10.6 Gran % 11.4 L Lymph % (Auto) 84.6 H [place] % (Auto) 3.1 Eos % (Auto) 0.7 L Baso % (Auto) 0.2 Gran # 1.99 Lymph # (Auto) 14.8 H [place] # (Auto) 0.5 Eos # (Auto) 0.1 Baso # (Auto) 0.04 Neutrophils % (Manual) 12 L Lymphocytes % (Manual) 79 H Atypical Lymphs % 3 H Monocytes % (Manual) 5 Basophils % (Manual) 1 Platelet Evaluation Low PT 11.2 INR 0.97 APTT 28.0 Sodium 143 Potassium 4.4 Chloride 111 H Carbon Dioxide 27 Anion Gap 10 BUN 22 H Creatinine 1.0 Est GFR ( Amer) > 60 Est GFR (Non-Af Amer) > 60 Random Glucose 94 Calcium 9.1 Total Bilirubin 0.5 AST 21 ALT 24 Alkaline Phosphatase 87 Total Protein 6.1 Albumin 3.9 Globulin 2.2 Albumin/Globulin Ratio 1.8 Amylase 64 Lipase 60 Assessment & Plan - Assessment and Plan (Free Text) Assessment: Patient is an 82yo male with PMHx significant for 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), CAD s/p PCI on ASA/Plavix, chronic constipation, HTN, hyperlipidemia, BPH and large inguinal hernias who presented to the ED with abdominal pain -Severe constipation -CAD on ASA/Plavix -CLL -Large inguinal hernias Plan: -S/P digital disimpaction at bedside, soft stool remained at end of exam -Recommend aggressive bowel regimen with Miralax 17g PO BID along with tap water enemas Q1H for 4x today and repeat tomorrow -Dulcolax supp to be added if necessary -OK for patient to take home medication Amitiza if it can be brought in -Liquid diet for now -Patient would ultimately benefit from elective colonoscopy; however, patient cannot be off ASA/Plavix for one year per most recent cardiology documentation - Date & Time Date: 10/13/18 Time: 14:00 <Giacomo Downs V - Last Filed: 10/14/18 00:01> Meds - Medications Medications: Current Medications Aspirin (Ecotrin) 81 mg PO 0800 [facility] Atenolol (Tenormin) 25 mg PO DAILY [facility] Atorvastatin Calcium (Lipitor) 40 mg PO DIN [facility] Calcium Carbonate (Caltrate) 650 mg PO BID [facility] Clopidogrel Bisulfate (Plavix) 75 mg PO DAILY [facility] Docusate Sodium (Colace) 100 mg PO BID [facility] Famotidine (Pepcid) 40 mg PO HS [facility] Last Admin: 10/13/18 21:15 Dose: 40 mg Finasteride (Proscar) 5 mg PO DAILY [facility] Isosorbide Mononitrate (Imdur) 60 mg PO DAILY [facility] Levothyroxine Sodium (Synthroid) 50 mcg PO 0600 [facility] Mirtazapine (Remeron) 15 mg PO HS [facility] Last Admin: 10/13/18 21:15 Dose: 15 mg Lubiprostone [ (Amitiza] 24 Mcg) 24 mcg PO DAILY [facility] Non-Formulary Medication (Multivitamin [Multiple Vitamins]) 40 mg PO DAILY [facility] Pantoprazole Sodium (Protonix Ec Tab) 20 mg PO 0600 [facility] Polyethylene Glycol (Miralax) 17 gm PO BID [facility] Last Admin: 10/13/18 17:43 Dose: 17 gm Quetiapine Fumarate (Seroquel) 25 mg PO HS [facility]; Protocol Last Admin: 10/13/18 21:15 Dose: 25 mg Tamsulosin HCl (Flomax) 0.4 mg PO 1830 [facility] Last Admin: 10/13/18 20:16 Dose: 0.4 mg Results - Vital Signs Recent Vital Signs: Last Vital Signs Temp 98.7 F 10/13/18 09:07 Pulse 70 10/13/18 21:28 Resp 18 10/13/18 21:28 BP 133/64 10/13/18 13:14 Pulse Ox 98 10/13/18 13:14 - Labs Result Diagrams: 10/13/18 10:00 10/13/18 10:00 Labs: Laboratory Results - last 24 hr 10/13/18 10/13/18 10/13/18 10:00 10:00 10:00 WBC 17.5 H RBC 3.48 L Hgb 11.1 L Hct 34.5 L MCV 99.1 MCH 31.9 MCHC 32.2 RDW 15.1 H Plt Count 71 L MPV 10.6 Gran % 11.4 L Lymph % (Auto) 84.6 H [place] % (Auto) 3.1 Eos % (Auto) 0.7 L Baso % (Auto) 0.2 Gran # 1.99 Lymph # (Auto) 14.8 H [place] # (Auto) 0.5 Eos # (Auto) 0.1 Baso # (Auto) 0.04 Neutrophils % (Manual) 12 L Lymphocytes % (Manual) 79 H Atypical Lymphs % 3 H Monocytes % (Manual) 5 Basophils % (Manual) 1 Platelet Evaluation Low PT 11.2 INR 0.97 APTT 28.0 Sodium 143 Potassium 4.4 Chloride 111 H Carbon Dioxide 27 Anion Gap 10 BUN 22 H Creatinine 1.0 Est GFR ( Amer) > 60 Est GFR (Non-Af Amer) > 60 Random Glucose 94 Calcium 9.1 Total Bilirubin 0.5 AST 21 ALT 24 Alkaline Phosphatase 87 Total Protein 6.1 Albumin 3.9 Globulin 2.2 Albumin/Globulin Ratio 1.8 Amylase 64 Lipase 60 Attending/Attestation - Attestation I have personally seen and examined this patient.: Yes I have fully participated in the care of the patient.: Yes I have reviewed all pertinent clinical information: Yes Notes (Text): jamie 10/14/18 00:01
--- NOTE | 2018-10-13 14:51 | RAD ---
Date of service: 10/13/2018 HISTORY: abdominal pain COMPARISON: Frontal chest radiograph 10/13/2018 FINDINGS: LUNGS: No active pulmonary disease. PLEURA: No significant pleural effusion identified, no pneumothorax apparent. CARDIOVASCULAR: Calcific atherosclerotic changes are seen related to the thoracic aorta. Normal cardiac size. No pulmonary vascular congestion. OSSEOUS STRUCTURES: No significant abnormalities. VISUALIZED UPPER ABDOMEN: Normal. OTHER FINDINGS: None. IMPRESSION: No interval acute cardiopulmonary disease appreciated.
[2018-10-13] MEDS: POLYETHYLENE GLYCOL 3350 17 GM/Dose PACKET PO SCH (17:43)
[2018-10-13 21:45] VITALS: BMI 21.9
[2018-10-13] MEDS ORDERED: Influenza Vaccine 60 mcg/0.5 mL SYR (4YR UP) IM ONE (21:45)
[2018-10-13] MEDS ORDERED: Pneumococcal 23-Valent Vaccine IM ONE (21:45)
--- NOTE | 2018-10-13 22:44 | PCM.URO ---
Urology Progress Note - Objective Lab Studies: Reviewed (new jaramillo inserted dx: retention // plans : jaramillo) Lab Results Last 24 Hours: Laboratory Results - last 24 hr 10/13/18 10/13/18 10/13/18 10:00 10:00 10:00 WBC 17.5 H RBC 3.48 L Hgb 11.1 L Hct 34.5 L MCV 99.1 MCH 31.9 MCHC 32.2 RDW 15.1 H Plt Count 71 L MPV 10.6 Gran % 11.4 L Lymph % (Auto) 84.6 H [place] % (Auto) 3.1 Eos % (Auto) 0.7 L Baso % (Auto) 0.2 Gran # 1.99 Lymph # (Auto) 14.8 H [place] # (Auto) 0.5 Eos # (Auto) 0.1 Baso # (Auto) 0.04 Neutrophils % (Manual) 12 L Lymphocytes % (Manual) 79 H Atypical Lymphs % 3 H Monocytes % (Manual) 5 Basophils % (Manual) 1 Platelet Evaluation Low PT 11.2 INR 0.97 APTT 28.0 Sodium 143 Potassium 4.4 Chloride 111 H Carbon Dioxide 27 Anion Gap 10 BUN 22 H Creatinine 1.0 Est GFR ( Amer) > 60 Est GFR (Non-Af Amer) > 60 Random Glucose 94 Calcium 9.1 Total Bilirubin 0.5 AST 21 ALT 24 Alkaline Phosphatase 87 Total Protein 6.1 Albumin 3.9 Globulin 2.2 Albumin/Globulin Ratio 1.8 Amylase 64 Lipase 60 Intake & Output: Intake & Output 10/13/18 10/13/18 10/14/18 06:59 18:59 06:59 Weight 149 lb 149 lb Other: Voiding Method Diaper Vital Signs: Vital Signs - 24 hr 10/13/18 10/13/18 10/13/18 09:07 10:39 13:14 Temperature 98.7 F Pulse Rate 74 68 70 Pulse Rate [ Apical] Respiratory 18 18 18 Rate Blood Pressure 153/70 H 128/79 133/64 O2 Sat by Pulse 99 97 98 Oximetry 10/13/18 21:28 Temperature Pulse Rate Pulse Rate [ 70 Apical] Respiratory 18 Rate Blood Pressure O2 Sat by Pulse Oximetry
[2018-10-14] MEDS: Pantoprazole 20 mg EC Tab PO SCH (05:05)
[2018-10-14] MEDS: Levothyroxine 50 MCG TAB PO SCH (05:06)
[2018-10-14 05:38] LABS: URINE BILIRUBIN NEGATIVE (NEGATIVE); URINE BLOOD SMALL (NEGATIVE); URINE GLUCOSE (UA) NEGATIVE (NEGATIVE); URINE LEUKOCYTE ESTERASE NEGATIVE Leu/uL (NEGATIVE); URINE PROTEIN NEGATIVE mg/dL (<30 mg/dL); URINE UROBILINOGEN 0.2 E.U./dL (<1 E.U./dL)
[2018-10-14 05:42] LABS: URINE APPEARANCE CLEAR (CLEAR); URINE COLOR YELLOW (YELLOW)
[2018-10-14 05:53] LABS: URINE BACTERIA SMALL (NEG); URINE EPITHELIAL CELLS 0 - 2 /hpf (0-5)
[2018-10-14] MEDS: POLYETHYLENE GLYCOL 3350 17 GM/Dose PACKET PO SCH ×2 (10:48→17:50)
--- NOTE | 2018-10-14 11:02 | CARD ---
APPROVED REPORT Date of service: 10/13/2018 EKG Measurement Heart [id number] <Conclusion> Normal sinus rhythm LAD PRWP No PVCs now
--- NOTE | 2018-10-14 11:04 | CP.PCM.CON ---
History of Present Illness - History of Present Illness History of Present Illness: Patient is an 82 yo male with history of CLL, CAD, HTN, HLD, BPH, constipation, and inguinal hernias who presented with diarrhea and abdominal pain. As per the ED, patient's cousin reported that patient was taking too many laxatives for his constipation. Patient states he did not have an adequate BM in [address] showed moderate rectal fecal impaction. Patient was disimpacted by GI and received 4 enemas yesterday and was able to have a BM. He is now on Colace and Miralax. Patient states his abdominal pain is resolved. Regarding the patient hernias, he states he has had them for approximately 6 years and they do not bother him and are not painful. CT showed large b/l hernia without obstruction or incarceration. Patient denies ODOM, chest pain, SOB, nausea/vomiting. He has Rod catheter placed by urology yesterday. PMH: CLL, CAD, HTN, HLD, BPH, constipation, large b/l inguinal hernias PSH: coronary stents 2018 Meds: ASA 81, Plavix 75, Lipitor 40, Atenolol 25, Lubiprostone 24 mcg, Colace 100 bid, Miralax 17 g, Protonix 20, Pepcid 40, Proscar 5, Flomax 0.4, Imdur 60, Synthroid 50 mcg, Remeron 15, Seroquel 25 All: NKA FH: denies SH: lives alone, denies tobacco, alcohol, illicit drug use Review of Systems - Review of Systems Review of Systems: As per HPI Past Patient History - Infectious Disease Hx of Infectious Diseases: None - Past Social History Smoking Status: Unknown If Ever Smoked Chewing Tobacco Use: No Cigar Use: No Alcohol: None Drugs: Denies Home Situation {Lives}: Alone - CARDIAC Hx Cardiac Disorders: Yes Hx Hypertension: Yes - PULMONARY Hx Respiratory Disorders: No - NEUROLOGICAL Hx Neurological Disorder: Yes Hx Dizziness: Yes - HEENT Hx HEENT Problems: Yes Other/Comment: [place] - RENAL Hx Chronic Kidney Disease: No - ENDOCRINE/METABOLIC Hx Endocrine Disorders: No - HEMATOLOGICAL/ONCOLOGICAL Hx Blood Disorders: Yes Other/Comment: leukemia - INTEGUMENTARY Hx Dermatological Problems: No - MUSCULOSKELETAL/RHEUMATOLOGICAL Hx Falls: Yes (08/23/18) - GASTROINTESTINAL Other/Comment: large inguinal hernia - GENITOURINARY/GYNECOLOGICAL Hx Genitourinary Disorders: Yes Hx Prostate Problems: Yes (hernia / enlarged prostate) - PSYCHIATRIC Hx Psychophysiologic Disorder: No Hx Substance Use: No - SURGICAL HISTORY Hx Surgeries: No - ANESTHESIA Hx Anesthesia Reactions: No Meds Allergies/Adverse Reactions: Allergies Allergy/AdvReac Type Severity Reaction Status Date / Time No Known Allergies Allergy Verified 09/11/18 22:32 - Medications Medications: Current Medications Aspirin (Ecotrin) 81 mg PO 0800 REPLACED BY [facility] Last Admin: 10/14/18 08:25 Dose: 81 mg Atenolol (Tenormin) 25 mg PO DAILY REPLACED BY [facility] Atorvastatin Calcium (Lipitor) 40 mg PO DIN REPLACED BY [facility] Calcium Carbonate (Caltrate) 650 mg PO BID REPLACED BY [facility] Clopidogrel Bisulfate (Plavix) 75 mg PO DAILY REPLACED BY [facility] Docusate Sodium (Colace) 100 mg PO BID REPLACED BY [facility] Famotidine (Pepcid) 40 mg PO HS REPLACED BY [facility] Last Admin: 10/13/18 21:15 Dose: 40 mg Finasteride (Proscar) 5 mg PO DAILY REPLAC[facility] BY [facility] Isosorbide Mononitrate (Imdur) 60 mg PO DAILY REPLACED BY [facility] Levothyroxine Sodium (Synthroid) 50 mcg PO 0600 REPLACED BY [facility] Last Admin: 10/14/18 05:06 Dose: 50 mcg Mirtazapine (Remeron) 15 mg PO HS REPLACED BY [facility] Last Admin: 10/13/18 21:15 Dose: 15 mg Lubiprostone [ (Amitiza] 24 Mcg) 24 mcg PO DAILY REPLAC[facility] BY [facility] Non-Formulary Medication (Multivitamin [Multiple Vitamins]) 40 mg PO DAILY [facility]PLAC[facility] BY [facility] Pantoprazole Sodium (Protonix Ec Tab) 20 mg PO 0600 REPLACED BY [facility] Last Admin: 10/14/18 05:05 Dose: 20 mg Polyethylene Glycol (Miralax) 17 gm PO BID REPLACED BY [facility] Last Admin: 10/13/18 17:43 Dose: 17 gm Quetiapine Fumarate (Seroquel) 25 mg PO HS REPLACED BY [facility]; Protocol Last Admin: 10/13/18 21:15 Dose: 25 mg Tamsulosin HCl (Flomax) 0.4 mg PO 1830 REPLACED BY [facility] Last Admin: 10/13/18 20:16 Dose: 0.4 mg Physical Exam - Constitutional Appears: No Acute Distress, Unkempt - Head Exam Head Exam: ATRAUMATIC, NORMAL INSPECTION, NORMOCEPHALIC - Eye Exam Eye Exam: EOMI, Normal appearance - ENT Exam ENT Exam: Mucous Membranes Moist - Neck Exam Neck exam: Positive for: Normal Inspection - Respiratory Exam Respiratory Exam: NORMAL BREATHING PATTERN. absent: Respiratory Distress - Cardiovascular Exam Cardiovascular Exam: REGULAR RHYTHM. absent: Tachycardia - GI/Abdominal Exam GI & Abdominal Exam: Soft. absent: Distended, Firm, Guarding, Tenderness - Rectal Exam Additional comments: loose stool in rectal vault- light brown, nonbloody no prostate nodules - Exam Additional comments: Rod- draining clear yellow urine large b/l inguinal hernias, nonreducible, nontender, chronic - Extremities Exam Extremities exam: Positive for: normal inspection, pedal pulses present. Negative for: pedal edema, tenderness - Back Exam Back exam: NORMAL INSPECTION - Neurological Exam Neurological exam: Alert, CN II-XII Intact, Oriented x3 - Psychiatric Exam Psychiatric exam: Normal Affect, Normal Mood - Skin Skin Exam: Dry, Intact, Normal Color, Warm Results - Vital Signs Recent Vital Signs: Last Vital Signs Temp 97.2 F L 10/14/18 07:00 Pulse 73 10/14/18 07:00 Resp 18 10/14/18 07:00 BP 119/60 10/14/18 07:00 Pulse Ox 97 10/14/18 07:00 - Labs Result Diagrams: 10/13/18 10:00 10/13/18 10:00 Labs: Laboratory Results - last 24 hr 10/13/18 10/14/18 10:00 04:57 Neutrophils % (Manual) 12 L Lymphocytes % (Manual) 79 H Atypical Lymphs % 3 H Monocytes % (Manual) 5 Basophils % (Manual) 1 Platelet Evaluation Low Urine Color Yellow Urine Appearance Clear Urine pH 6.0 Ur Specific [place] 1.025 Urine Protein Negative Urine Glucose (UA) Negative Urine Ketones Trace H Urine Blood Small H Urine Nitrate Negative Urine Bilirubin Negative Urine Urobilinogen 0.2 Ur Leukocyte Esterase Negative Urine RBC 1 - 3 Urine WBC 1 - 3 Ur Epithelial Cells 0 - 2 Urine Bacteria Small Assessment & Plan - Assessment and Plan (Free Text) Assessment: 82M with chronic b/l inguinal hernias, chronic constipation Plan: - Inguinal hernias are chronic and no signs of obstruction or incarceration on CT requiring emergent surgery - Patient does not want surgical intervention for hernias at this time - Can follow-up outpatient if he would like intervention at a later date - Continue with stool softeners as per GI and primary Case was discussed with attending, Dr. Estrella PGY-1 Izabella Aaron D.O.
--- NOTE | 2018-10-14 12:18 | CP.PCM.PN ---
<Lance Yi - Last Filed: 10/14/18 12:19> Subjective - Date & Time of Evaluation Date of Evaluation: 10/14/18 Time of Evaluation: 09:30 - Subjective Subjective: PGY6 GI Fellow Progress Note Patient seen and examined bedside this morning. He reports feeling significantly better than he did yesterday. Multiple BM since I last evaluated s/p enemas. 12 system ROS performed and negative except where stated Objective - Vital Signs/Intake and Output Vital Signs (last 24 hours): Temp Pulse Resp BP Pulse Ox 97.2 F L 81 18 151/74 H 97 10/14/18 07:00 10/14/18 10:49 10/14/18 07:00 10/14/18 10:49 10/14/18 07:00 Intake and Output: 10/14/18 10/14/18 06:59 18:59 Output Total 700 Balance -700 - Medications Medications: Current Medications Aspirin (Ecotrin) [address] [facility] Last Admin: 10/14/18 08:25 Dose: 81 mg Atenolol (Tenormin) [address] [facility] Last Admin: 10/14/18 10:49 Dose: 25 mg Atorvastatin Calcium (Lipitor) [address] [facility] Calcium Carbonate (Caltrate) [address] [facility] Last Admin: 10/14/18 11:29 Dose: 600 mg Clopidogrel Bisulfate (Plavix) [address] [facility] Last Admin: 10/14/18 10:49 Dose: 75 mg Docusate Sodium (Colace) [address] [facility] Last Admin: 10/14/18 10:48 Dose: 100 mg Famotidine (Pepcid) [address] [facility] Last Admin: 10/13/18 21:15 Dose: 40 mg Finasteride (Proscar) [address] [facility] Last Admin: 10/14/18 10:50 Dose: 5 mg Isosorbide Mononitrate (Imdur) [address] [facility] Last Admin: 10/14/18 10:50 Dose: 60 mg Levothyroxine Sodium (Synthroid) [address] [facility] Last Admin: 10/14/18 05:06 Dose: 50 mcg Mirtazapine (Remeron) [address] [facility] Last Admin: 10/13/18 21:15 Dose: 15 mg Lubiprostone [ (Amitiza] 24 Mcg) [address] [facility] Non-Formulary Medication (Multivitamin [Multiple Vitamins]) [address] [facility] Pantoprazole Sodium (Protonix Ec Tab) [address] [facility] Last Admin: 10/14/18 05:05 Dose: 20 mg Polyethylene Glycol (Miralax) [address] [facility] Last Admin: 10/14/18 10:48 Dose: 17 gm Quetiapine Fumarate (Seroquel) [address] [facility]; Protocol Last Admin: 10/13/18 21:15 Dose: 25 mg Tamsulosin HCl (Flomax) 0.[address] [facility] Last Admin: 10/13/18 20:16 Dose: 0.4 mg - Labs Labs: 10/13/18 10:00 10/13/18 10:00 PT 11.2 SECONDS (9.4-12.5) 10/13/18 10:00 INR 0.97 10/13/18 10:00 APTT 28.0 Seconds (25.1-36.5) 10/13/18 10:00 - Constitutional Appears: Non-toxic, No Acute Distress - Eye Exam Eye Exam: EOMI, PERRL - ENT Exam ENT Exam: Mucous Membranes Moist - Respiratory Exam Respiratory Exam: Clear to Ausculation Bilateral. absent: Rales, Rhonchi, Wheezes - Cardiovascular Exam Cardiovascular Exam: RRR, +S1, +S2 - GI/Abdominal Exam GI & Abdominal Exam: Soft, Hernia (large, inguinal), Normal Bowel Sounds. absent: Distended, Firm, Guarding, Rigid, Tenderness, Organomegaly - Exam Additional comments: significant distortion of the testicles/penis 2/2 inguinal hernias; jaramillo placed - Extremities Exam Extremities Exam: Normal Inspection. 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), CAD s/p PCI on ASA/Plavix, chronic constipation, HTN, hyperlipidemia, BPH and large inguinal hernias who presented to the ED with abdominal pain -Severe constipation -CAD on ASA/Plavix -CLL -Large inguinal hernias Plan: -S/P digital disimpaction and aggressive bowel regimen -Recommend continuation of Miralax in conjunction with Amitiza -Dulcolax and tap water enema PRN -Advance diet as tolerated - augment fiber/water intake -Patient cannot undergo colonoscopy at this time given ongoing cardiac issues but given pronounced change in bowel habits and severe constipation, encourage patient to undergo virtual colonography - explained to patient and he under stands -OK for D/C from GI standpoint if tolerating diet <Yareli,Kovil V - Last Filed: 10/14/18 16:16> Objective - Vital Signs/Intake and Output Vital Signs (last 24 hours): Temp Pulse Resp BP Pulse Ox 97.2 F L 81 18 151/74 H 97 10/14/18 07:00 10/14/18 10:49 10/14/18 07:00 10/14/18 10:49 10/14/18 07:00 Intake and Output: 10/14/18 10/14/18 06:59 18:59 Output Total 700 Balance -700 - Medications Medications: Current Medications Aspirin (Ecotrin) [address] [facility] Last Admin: 10/14/18 08:25 Dose: 81 mg Atenolol (Tenormin) [address] [facility] Last Admin: 10/14/18 10:49 Dose: 25 mg Atorvastatin Calcium (Lipitor) [address] [facility] Calcium Carbonate (Caltrate) [address] [facility] Last Admin: 10/14/18 11:29 Dose: 600 mg Clopidogrel Bisulfate (Plavix) [address] [facility] Last Admin: 10/14/18 10:49 Dose: 75 mg Docusate Sodium (Colace) [address] [facility] Last Admin: 10/14/18 10:48 Dose: 100 mg Famotidine (Pepcid) [address] [facility] Last Admin: 10/13/18 21:15 Dose: 40 mg Finasteride (Proscar) [address] [facility] Last Admin: 10/14/18 10:50 Dose: 5 mg Isosorbide Mononitrate (Imdur) [address] [facility] Last Admin: 10/14/18 10:50 Dose: 60 mg Levothyroxine Sodium (Synthroid) [address] [facility] Last Admin: 10/14/18 05:06 Dose: 50 mcg Mirtazapine (Remeron) [address] [facility] Last Admin: 10/13/18 21:15 Dose: 15 mg Lubiprostone [ (Amitiza] 24 Mcg) [address] [facility] Last Admin: 10/14/18 13:11 Dose: Not Given Non-Formulary Medication (Multivitamin [Multiple Vitamins]) [address] [facility] Last Admin: 10/14/18 13:11 Dose: Not Given Pantoprazole Sodium (Protonix Ec Tab) [address] [facility] Last Admin: 10/14/18 05:05 Dose: 20 mg Polyethylene Glycol (Miralax) [address] [facility] Last Admin: 10/14/18 10:48 Dose: 17 gm Quetiapine Fumarate (Seroquel) [address] [facility]; Protocol Last Admin: 10/13/18 21:15 Dose: 25 mg Tamsulosin HCl (Flomax) 0.[address] [facility] Last Admin: 10/13/18 20:16 Dose: 0.4 mg - Labs Labs: 10/13/18 10:00 10/13/18 10:00 PT 11.2 SECONDS (9.4-12.5) 10/13/18 10:00 INR 0.97 10/13/18 10:00 APTT 28.0 Seconds (25.1-36.5) 10/13/18 10:00 Attending/Attestation - Attestation I have personally seen and examined this patient.: Yes I have fully participated in the care of the patient.: Yes I have reviewed all pertinent clinical information, including history, physical exam and plan: Yes Notes (Text): This is an addendum to GI progress report dictated by the GI Fellow. The patient was seen and examined earlier. Medical records, lab studies, imagings were reviewed. Last 24 hours events reviewed. Agreed with the above treatment plan as outlined in GI Fellow 's notes with the addition of the following Patient now finally moving his bowels s/p manual disimpaction and enemas. Continue Vivian LAX. Patient needs surgical evaluation for hernia prior to colonoscopy. Loops of bowel in the hernial sack technically difficult to perform even diagnostic colonoscopy. Large loop of sigmoid colon in the left inguinal hernial sack. Another option to consider prior to surgery if needed for colonic evaluation is virtual colonoscopy. Discussed with the patient regarding this. Will also discuss with . 10/14/18 16:12
[2018-10-14] MEDS: MULTIVITAMIN PO SCH (13:11)
[2018-10-14] MEDS: Lubiprostone [Amitiza] 24 MCG PO SCH (13:11)
--- NOTE | 2018-10-14 18:32 | HP ---
DATE OF EXAM: 10/13/2018 CHIEF COMPLAINT: The patient came in because of constipation. HISTORY OF PRESENT ILLNESS: This is an 82-year-old male, recently he had a stent of right coronary artery as large inguinal hernia bilateral, right more than left and came in because of severe constipation for the last 4 to 5 days in spite of getting Amitiza, Dulcolax, MiraLax, Colace does not work. The patient came for evaluation and treatment. He had denied any chest pain. Denied any abdominal pain. No nausea, no vomiting. PAST MEDICAL HISTORY: 1. CLL or chronic lymphocytic leukemia. 2. Bilateral inguinal hernia. 3. Hypothyroidism. 4. History of delusions in the past and insomnia. 5. Coronary artery disease. 6. Hypocholesterolemia. 7. Thrombocytopenia. 8. Severe splenomegaly. 9. The patient had recently right coronary artery stents. FAMILY HISTORY: Colon cancer. HOME MEDICATIONS: He takes Flomax 0.4 once a day, Seroquel 25, MiraLax, Prilosec, multivitamins, Remeron 15 at bedtime, Lopressor 12.5 b.i.d., Amitiza 24, Synthroid 50, Imdur 60, Proscar 5, Pepcid 40, Colace 100 b.i.d., Plavix 75 p.o. daily, Caltrate, Lipitor 40, aspirin 81. ALLERGIES: NO KNOWN ALLERGIES. PHYSICAL EXAMINATION: GENERAL: The patient seems sitting and concerned about his constipation. He did have a few bowel movement loose. VITAL SIGNS: Temperature 97.8, heart rate 74, blood pressure 153/70, respirations 18, sat 99%. HEAD AND NECK: Normal. No JVD. No thyromegaly. CHEST: Clear bilateral. CARDIOVASCULAR: First sound and second sound normal. ABDOMEN: Soft and nontender with large inguinal hernia nontender. Bowel sounds intact. EXTREMITIES: No edema. NEUROLOGICAL: Normal. LABORATORY DATA: White count 17.5, hemoglobin 11.1, hematocrit 34.5, platelets 71. Sodium 143, potassium 4.4, chloride 111, bicarb 27, BUN 22, creatinine 1. Liver function test is normal. Amylase and lipase is normal. The patient had a CT of the abdomen and pelvis that shows loop of small bowel and large bowel both inguinal hernia and hydronephrosis. IMPRESSION: 1. Chronic constipation which got worse. We have patient, rule out any stool infections or any colon cancer. Patient does have a family history of colon cancer. Although, the patient has high risk of doing colonoscopy because of loops in bowels, inguinal hernia and it is extremely difficult . We will discuss with Dr. Downs or possibly we can do flexible sigmoidoscopy. Could not fix hernia prior to the cardiac evaluations, so he just have the month ago right coronary artery stent with Plavix and aspirin. It is high risk to stop Plavix because of acute closure of the stents. 2. Coronary artery disease, right coronary artery stent. 3. Prostate enlargement with strip on urination, distended bladder, bilateral hydro. He needs the prostate evaluation by Dr. Juarez, a Urology consult who has seen him in the past. 4. Large inguinal hernia, not for surgery, at this time no obstructions. However, we will discuss with the healthcare management consultant on the case. PLAN: 1. Continue current therapy. 2. CLL-- chronic lymphocytic leukemia. Asymptomatic at this moment. Has low platelets, splenomegaly. We will follow up and that will be Hematology. Consider current therapy. Hany Ag MD
--- NOTE | 2018-10-14 18:40 | CON ---
DATE: 10/13/2018 UROLOGY CONSULT NOTE REASON FOR CONSULTATION: Recent history of urinary retention. HISTORY OF PRESENT ILLNESS: Mr. Virk is a very pleasant gentleman, doing quite well for years, I have been following the patient. I am recommending that he has a hernia repair or herniorrhaphy. Apparently, this has been very difficult secondary to medical clearance issues. Note, from the Urology standpoint, at this point he is in the hospital with multiple issues. Urology has been consulted regarding retention and that nobody else has been able to insert a Rod catheter. PAST MEDICAL AND SURGICAL HISTORY: As listed on the chart. Again, he is awaiting clearance to get Cardiology and medical clearance for an extensive herniorrhaphy. MEDICATIONS: See the chart. ALLERGIES: SEE THE CHART. PHYSICAL EXAMINATION: His abdomen is overall marked grossly distended and has a gigantic hernia noted. The penis is not bilaterally obvious in its location. It is hidden within the suprapubic region and skinfold. However, we are able to identify the glan and then once we did this, we were able to insert a Rod catheter. See the separately dictated procedure. DIAGNOSES: 1. Large hernia. 2. Buried penis. 3. Urinary retention. PLAN: As follows. We inserted a Rod catheter via urethra. We obtained clear yellow urine, and the plan will be to leave back the Rod to straight drainage and then I should follow the patient along and clear that clinically and then make further recommendations and plan. Geo Juarez MD
[2018-10-15] MEDS: Pantoprazole 20 mg EC Tab PO SCH (07:00)
[2018-10-15] MEDS: MULTIVITAMIN PO SCH (09:06)
[2018-10-15] MEDS: Lubiprostone [Amitiza] 24 MCG PO SCH (09:06)
--- NOTE | 2018-10-15 09:09 | PROCN ---
DATE: 10/14/2018 PREOPERATIVE DIAGNOSES: Buried penis, retracted penis, large hernia, urinary retention. POSTOPERATIVE DIAGNOSES: Buried penis, retracted penis, large hernia, urinary retention. PROCEDURE: Revelation of penis and insertion of Rod catheter. COMPLICATIONS: There were no complications. BLOOD LOSS: Minimal. The patient had an indwelling Rod catheter. See history and physical and consultation. A very pleasant gentleman, who did quite well for years. A large hernia and has had voiding dysfunction for tremendous urinary retention and they were unable to insert a Rod catheter, so urology consulted. See the consult note. The patient is trying to get medical clearance. The hernia repair has been due for quite some time now. The hernia itself is gigantic. Procedure is done at the bedside. Under sterile technique, we were able to push the hernia away out of the field. It revealed the penis which was hidden within the skin folds in the suprapubic region. We revealed the penile gland. We prepared in sterile fashion. We then inserted Rod catheter via the urethra. Other than that the meatus is normal. The remainder of the Rod catheter ____. We drained clear sulma urine. The patient tolerated the procedure well without complication. DIAGNOSIS: Urinary retention. PLAN: To please leave the Rod in with straight drainage ____. Geo Juarez MD
[2018-10-15] MEDS: Levothyroxine 50 MCG TAB PO SCH (09:14)
[2018-10-15] MEDS: POLYETHYLENE GLYCOL 3350 17 GM/Dose PACKET PO SCH ×2 (09:14→17:13)
[2018-10-15 10:46] LABS: HEMOGLOBIN 11.6 g/dL (14.0-18.0); MEAN CELL VOLUME 99.2 fl (80.0-105.0); MEAN CORPUSCULAR HEMOGLOBIN 31.5 pg (25.0-35.0); MEAN CORPUSCULAR HGB CONC 31.8 g/dl (31.0-37.0); MEAN PLATELET VOLUME 10.7 fl (7.0-11.0); RBC 3.68 10^6/uL (3.5-6.1); RED CELL DISTRIBUTION WIDTH 14.9 % (11.5-14.5)
[2018-10-15 10:58] LABS: BLOOD UREA NITROGEN 20 mg/dL (7-21); CALCIUM 9.3 mg/dL (8.4-10.5); GFR NON-AFRICAN AMERICAN > 60
[2018-10-15 11:01] LABS: WHITE BLOOD COUNT 26.9 10^3/uL (4.5-11.0)
--- NOTE | 2018-10-15 11:32 | CP.PCM.PN ---
<Lance Yi - Last Filed: 10/15/18 11:27> Subjective - Date & Time of Evaluation Date of Evaluation: 10/15/18 Time of Evaluation: 09:00 - Subjective Subjective: PGY6 GI Fellow Progress Note Patient seen and examined bedside this morning. Patient resting comfortably at time of examination. No events overnight. 12 system ROS performed and negative except where stated Objective - Vital Signs/Intake and Output Vital Signs (last 24 hours): Temp Pulse Resp BP Pulse Ox 98 F 80 20 135/77 99 10/15/18 06:00 10/15/18 09:14 10/15/18 06:00 10/15/18 09:14 10/15/18 06:00 Intake and Output: 10/15/18 10/15/18 06:59 18:59 Intake Total 180 Output Total 200 Balance -20 - Medications Medications: Current Medications Aspirin (Ecotrin) 81 mg PO 0800 [facility] Last Admin: 10/15/18 09:14 Dose: 81 mg Atenolol (Tenormin) 25 mg PO DAILY [facility] Last Admin: 10/15/18 09:14 Dose: 25 mg Atorvastatin Calcium (Lipitor) 40 mg PO DIN [facility] Last Admin: 10/14/18 17:50 Dose: 40 mg Calcium Carbonate (Caltrate) 600 mg PO BID [facility] Last Admin: 10/15/18 09:15 Dose: 600 mg Clopidogrel Bisulfate (Plavix) 75 mg PO DAILY [facility] Last Admin: 10/15/18 09:14 Dose: 75 mg Docusate Sodium (Colace) 100 mg PO BID [facility] Last Admin: 10/15/18 09:14 Dose: 100 mg Famotidine (Pepcid) 40 mg PO HS [facility] Last Admin: 10/14/18 21:56 Dose: 40 mg Finasteride (Proscar) 5 mg PO DAILY [facility] Last Admin: 10/15/18 09:14 Dose: 5 mg Isosorbide Mononitrate (Imdur) 60 mg PO DAILY [facility] Last Admin: 10/15/18 09:14 Dose: 60 mg Levothyroxine Sodium (Synthroid) 50 mcg PO 0600 [facility] Last Admin: 10/15/18 09:14 Dose: 50 mcg Mirtazapine (Remeron) 15 mg PO HS [facility] Last Admin: 10/14/18 21:56 Dose: 15 mg Lubiprostone [ (Amitiza] 24 Mcg) 24 mcg PO DAILY [facility] Last Admin: 10/15/18 09:06 Dose: Not Given Non-Formulary Medication (Multivitamin [Multiple Vitamins]) 40 mg PO DAILY [facility] Last Admin: 10/15/18 09:06 Dose: Not Given Pantoprazole Sodium (Protonix Ec Tab) 20 mg PO 0600 [facility] Last Admin: 10/15/18 07:00 Dose: Not Given Polyethylene Glycol (Miralax) 17 gm PO BID [facility] Last Admin: 10/15/18 09:14 Dose: 17 gm Quetiapine Fumarate (Seroquel) 25 mg PO HS [facility]; Protocol Last Admin: 10/14/18 21:56 Dose: 25 mg Tamsulosin HCl (Flomax) 0.4 mg PO 1830 [facility] Last Admin: 10/14/18 17:50 Dose: 0.4 mg - Labs Labs: 10/15/18 10:40 10/15/18 10:40 PT 11.2 SECONDS (9.4-12.5) 10/13/18 10:00 INR 0.97 10/13/18 10:00 APTT 28.0 Seconds (25.1-36.5) 10/13/18 10:00 - Constitutional Appears: Non-toxic, No Acute Distress - Eye Exam Eye Exam: EOMI, PERRL - ENT Exam ENT Exam: Mucous Membranes Moist - Respiratory Exam Respiratory Exam: Clear to Ausculation Bilateral. absent: Rales, Rhonchi, Wheezes - Cardiovascular Exam Cardiovascular Exam: RRR, +S1, +S2 - GI/Abdominal Exam GI & Abdominal Exam: Soft, Normal Bowel Sounds. 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), CAD s/p PCI on ASA/Plavix, chronic constipation, HTN, hyperlipidemia, BPH and large inguinal hernias who presented to the ED with abdominal pain -Severe constipation -CAD on ASA/Plavix -CLL -Large inguinal hernias Plan: -Passing bowel movements daily -Continue bowel regimen with Miralax and Amitiza as ordered -Diet as tolerated, augment water/fiber intake -Leukocytosis presumed 2/2 known CLL - no obvious infectious etiology at this time -Patient cannot undergo colonoscopy at this time given ongoing cardiac issues but given pronounced change in bowel habits and severe constipation, encourage patient to undergo virtual colonography - explained to patient and he understands -Recommend endoscopic evaluation once patient can safely be off antiplatelet therapy and cleared from a cardiac standpoint -Surgical evaluation once cardiac clearance obtained for large hernias <Giacomo Downs V - Last Filed: 10/15/18 22:19> Objective - Vital Signs/Intake and Output Vital Signs (last 24 hours): Temp Pulse Resp BP Pulse Ox 98.5 F 86 20 118/68 96 10/15/18 14:00 10/15/18 14:00 10/15/18 14:00 10/15/18 14:00 10/15/18 14:00 - Medications Medications: Current Medications Aspirin (Ecotrin) 81 mg PO 0800 [facility] Last Admin: 10/15/18 09:14 Dose: 81 mg Atenolol (Tenormin) 25 mg PO DAILY [facility] Last Admin: 10/15/18 09:14 Dose: 25 mg Atorvastatin Calcium (Lipitor) 40 mg PO DIN [facility] Last Admin: 10/15/18 17:11 Dose: 40 mg Calcium Carbonate (Caltrate) 600 mg PO BID [facility] Last Admin: 10/15/18 17:12 Dose: 600 mg Clopidogrel Bisulfate (Plavix) 75 mg PO DAILY [facility] Last Admin: 10/15/18 09:14 Dose: 75 mg Docusate Sodium (Colace) 100 mg PO BID [facility] Last Admin: 10/15/18 17:10 Dose: 100 mg Famotidine (Pepcid) 40 mg PO HS [facility] Last Admin: 10/15/18 22:01 Dose: 40 mg Finasteride (Proscar) 5 mg PO DAILY [facility] Last Admin: 10/15/18 09:14 Dose: 5 mg Isosorbide Mononitrate (Imdur) 60 mg PO DAILY [facility] Last Admin: 10/15/18 09:14 Dose: 60 mg Levothyroxine Sodium (Synthroid) 50 mcg PO 0600 [facility] Last Admin: 10/15/18 09:14 Dose: 50 mcg Lorazepam (Ativan) 0.5 mg PO Q4H PRN; Protocol PRN Reason: Agitation Last Admin: 10/15/18 17:11 Dose: 0.5 mg Mirtazapine (Remeron) 15 mg PO HS [facility] Last Admin: 10/15/18 22:01 Dose: 15 mg Lubiprostone [ (Amitiza] 24 Mcg) 24 mcg PO DAILY [facility] Last Admin: 10/15/18 09:06 Dose: Not Given Non-Formulary Medication (Multivitamin [Multiple Vitamins]) 40 mg PO DAILY [facility] Last Admin: 10/15/18 09:06 Dose: Not Given Pantoprazole Sodium (Protonix Ec Tab) 20 mg PO 0600 [facility] Last Admin: 10/15/18 07:00 Dose: Not Given Polyethylene Glycol (Miralax) 17 gm PO BID [facility] Last Admin: 10/15/18 17:13 Dose: 17 gm Quetiapine Fumarate (Seroquel) 25 mg PO HS [facility]; Protocol Last Admin: 10/15/18 22:01 Dose: 25 mg Risperidone (Risperdal Tab) 0.25 mg PO DAILY [facility]; Protocol Last Admin: 10/15/18 17:12 Dose: 0.25 mg Tamsulosin HCl (Flomax) 0.4 mg PO 1830 [facility] Last Admin: 10/15/18 17:12 Dose: 0.4 mg - Labs Labs: 10/15/18 10:40 10/15/18 10:40 PT 11.2 SECONDS (9.4-12.5) 10/13/18 10:00 INR 0.97 10/13/18 10:00 APTT 28.0 Seconds (25.1-36.5) 10/13/18 10:00 Attending/Attestation - Attestation I have personally seen and examined this patient.: Yes I have fully participated in the care of the patient.: Yes I have reviewed all pertinent clinical information, including history, physical exam and plan: Yes Notes (Text): This is an addendum to GI progress report dictated by the GI Fellow. The patient was seen and examined earlier. Medical records, lab studies, imagings were reviewed. Last 24 hours events reviewed. Agreed with the above treatment plan as outlined in GI Fellow 's notes with the addition of the following Moving his bowels She has a large left inguinal hernia containing part of the loop of the colon Discussed with see if the recommendations for the newer stent and platelet therapy was explained 12/16/17 22:16
--- NOTE | 2018-10-15 19:55 | CON ---
DATE OF CONSULTATION: 10/15/2018 The patient is an 82-year-old single white gentleman who was interviewed by himself and in the presence of his friend. He was initially admitted because of "constipation." He had a recent right coronary stent as well as repair of a bilateral inguinal hernia. He reported severe constipation for the past 4-5 days despite receiving Amitiza, Dulcolax, MiraLax and other laxatives. His past medical history includes chronic lymphocytic leukemia, hypothyroidism, coronary artery disease, hypercholesterolemia, thrombocytopenia, splenomegaly. The patient's home medication include Flomax, Seroquel, Prilosec, multivitamins, Remeron h.s., Lopressor, Amitiza, Synthroid, Imdur, Proscar, Pepcid, Colace, Lipitor, aspirin, Plavix. The patient appeared somewhat odd and eccentric with long hair. He denied that he had ever seen a psychiatrist before, and seemed somewhat defensive. His friend that was present seemed to be anxious to initially interfere in my ability to interview him, but this was straightened out by seeing the friend to leave, a but then I had gotten additional information from that friend. The patient lives by himself. He indicated he had dropped out of high school and had difficulty learning. 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 He indicated that both of his parents of stomach cancer, his father age 61, his mother in her 80s. He is an only child. His chart indicates that he has had a delusional disorder, but this is not present at this time. He indicates that he lives by himself, but finds it difficult (but not impossible). His social interactions appear to be limited, and he was not considered to be a very clear historian, but he did not project any overt signs other than some eccentricity, imparity, he was not overtly psychotic, depressed or anxious nor did he speak of such. I will discuss further with you. I am unable to review his most recent laboratory values at this time. Mitesh Lainez MD/ PhD [facility] # [id number]
[2018-10-16] MEDS: Levothyroxine 50 MCG TAB PO SCH (07:02)
[2018-10-16] MEDS: Pantoprazole 20 mg EC Tab PO SCH (07:02)
[2018-10-16 08:05] LABS: BASO # 0.03 K/mm3 (0.0-2.0); BASO % 0.2 % (0.0-3.0); EOS # 0.1 (0.0-0.7); EOS % 0.5 % (1.5-5.0); GRAN # 1.62 (1.4-6.5); GRAN % 11.1 % (50.0-68.0); HEMOGLOBIN 11.4 g/dL (14.0-18.0); LYMPH # 12.3 (1.2-3.4); LYMPH % 84.5 % (22.0-35.0); MEAN CELL VOLUME 98.1 fl (80.0-105.0); MEAN CORPUSCULAR HEMOGLOBIN 31.5 pg (25.0-35.0); MEAN CORPUSCULAR HGB CONC 32.1 g/dl (31.0-37.0); MEAN PLATELET VOLUME 11.6 fl (7.0-11.0); MONO # 0.5 (0.1-0.6); MONO % 3.7 % (1.0-6.0); PLATELET COUNT 92 10^3/uL (120.0-450.0); RBC 3.62 10^6/uL (3.5-6.1); RED CELL DISTRIBUTION WIDTH 14.6 % (11.5-14.5); WHITE BLOOD COUNT 14.6 10^3/uL (4.5-11.0)
[2018-10-16 08:32] LABS: ALB/GLOB RATIO 1.7 (1.1-1.8); ALT/SGPT 29 U/L (7-56); AST/SGOT 24 U/L (17-59); BLOOD UREA NITROGEN 21 mg/dL (7-21); CALCIUM 9.4 mg/dL (8.4-10.5); GFR NON-AFRICAN AMERICAN > 60
[2018-10-16 08:35] LABS: ATYPICAL LYMPHOCYTE 13 % (0.0-0.0); LYMPHOCYTE 70 % (22.0-35.0); MONOCYTE 3 % (1.0-6.0); NEUTROPHIL 14 % (50.0-70.0)
[2018-10-16 08:36] LABS: PLATELET ESTIMATE LOW (NORMAL)
[2018-10-16] MEDS: Lubiprostone [Amitiza] 24 MCG PO SCH (10:09)
[2018-10-16] MEDS: POLYETHYLENE GLYCOL 3350 17 GM/Dose PACKET PO SCH ×2 (10:15→18:06)
[2018-10-16] MEDS: MULTIVITAMIN PO SCH (10:16)
--- NOTE | 2018-10-16 11:47 | PN ---
DATE: 10/15/2018 SUBJECTIVE: He is in bed comfortable. When he tried to get out again, seen by psychiatrist, Dr. Lainez, and also patient has and Rod catheter in. He has no respiratory distress. No chest pain. PHYSICAL EXAMINATION: GENERAL: On 10/15/2018, temperature 98.5, heart rate 86, blood pressure 118/68, respirations 20, saturation 99%. HEAD AND NECK: Normal. No JVD, no thyromegaly. CHEST: Clear bilaterally. CARDIAC: First sound and second sounds are normal. ABDOMEN: Soft, obese, nontender. EXTREMITIES: No edema. NEUROLOGIC: Normal. The patient had in, Rod catheter in. LABORATORY DATA: On 10/15/2018, sodium 141, potassium 4.1, chloride 107, bicarb 27, BUN 20, creatinine 1.1. Blood sugar 129, calcium is 9.3. CBC shows white count 26.9, hemoglobin 11.6, hematocrit 36.5, platelets 97. IMPRESSION AND PLAN: 1. Stool infection, got better. We will discuss with Dr. Downs about possible flexible sigmoidoscopy if possible, problem was colon inguinal hernia, and recent cardiac stents put in. 2. The patient has urinary retention with mild hydronephrosis, mild distended bladder. Continue Rod catheter, Flomax. 3. The patient has some dementia, some psychotic feature in the past. Psychiatry does look we put her on Risperdal plus. We will continue Ativan 0.5 mg every 4 hours p.r.n. 4. Coronary artery disease, stent placement. Continue aspirin, Plavix. We will follow up clinically. We will talk with the family member Christian Fountain, his relative and we will discuss further with him. Continue Pepcid 40 mg and MiraLax p.r.n. and followup clinically. Hany Ag MD
--- NOTE | 2018-10-16 12:15 | CP.PCM.PN ---
Subjective - Date & Time of Evaluation Date of Evaluation: 10/16/18 Time of Evaluation: 08:10 - Subjective Subjective: PGY6 GI Fellow Progress Note Patient seen and examined bedside this morning. The patient has no new complaints at this time. States he is eager to return home. 12 system ROS performed and negative except where stated Objective - Vital Signs/Intake and Output Vital Signs (last 24 hours): Temp Pulse Resp BP Pulse Ox 98 F 69 18 143/65 97 10/16/18 06:00 10/16/18 10:14 10/16/18 06:00 10/16/18 10:14 10/16/18 06:00 Intake and Output: 10/16/18 10/16/18 06:59 18:59 Intake Total 120 Output Total 600 Balance -480 - Medications Medications: Current Medications Aspirin (Ecotrin) 81 mg PO 0800 [facility] Last Admin: 10/16/18 10:18 Dose: 81 mg Atenolol (Tenormin) 25 mg PO DAILY [facility] Last Admin: 10/16/18 10:14 Dose: 25 mg Atorvastatin Calcium (Lipitor) 40 mg PO DIN [facility] Last Admin: 10/15/18 17:11 Dose: 40 mg Calcium Carbonate (Caltrate) 600 mg PO BID [facility] Last Admin: 10/16/18 10:15 Dose: 600 mg Clopidogrel Bisulfate (Plavix) 75 mg PO DAILY [facility] Last Admin: 10/16/18 10:14 Dose: 75 mg Docusate Sodium (Colace) 100 mg PO BID [facility] Last Admin: 10/16/18 10:14 Dose: 100 mg Famotidine (Pepcid) 40 mg PO HS [facility] Last Admin: 10/15/18 22:01 Dose: 40 mg Finasteride (Proscar) 5 mg PO DAILY [facility] Last Admin: 10/16/18 10:15 Dose: 5 mg Isosorbide Mononitrate (Imdur) 60 mg PO DAILY [facility] Last Admin: 10/16/18 10:14 Dose: 60 mg Levothyroxine Sodium (Synthroid) 50 mcg PO 0600 [facility] Last Admin: 10/16/18 07:02 Dose: Not Given Lorazepam (Ativan) 0.5 mg PO Q4H PRN; Protocol PRN Reason: Agitation Last Admin: 10/16/18 10:15 Dose: 0.5 mg Mirtazapine (Remeron) 15 mg PO HS [facility] Last Admin: 10/15/18 22:01 Dose: 15 mg Lubiprostone [ (Amitiza] 24 Mcg) 24 mcg PO DAILY [facility] Last Admin: 10/16/18 10:09 Dose: Not Given Non-Formulary Medication (Multivitamin [Multiple Vitamins]) 40 mg PO DAILY [facility] Last Admin: 10/16/18 10:16 Dose: Not Given Pantoprazole Sodium (Protonix Ec Tab) 20 mg PO 0600 [facility] Last Admin: 10/16/18 07:02 Dose: Not Given Polyethylene Glycol (Miralax) 17 gm PO BID [facility] Last Admin: 10/16/18 10:15 Dose: 17 gm Quetiapine Fumarate (Seroquel) 25 mg PO HS [facility]; Protocol Last Admin: 10/15/18 22:01 Dose: 25 mg Risperidone (Risperdal Tab) 0.25 mg PO DAILY [facility]; Protocol Last Admin: 10/16/18 10:15 Dose: 0.25 mg Tamsulosin HCl (Flomax) 0.4 mg PO 1830 [facility] Last Admin: 10/15/18 17:12 Dose: 0.4 mg - Labs Labs: 10/16/18 07:30 10/16/18 07:30 PT 11.2 SECONDS (9.4-12.5) 10/13/18 10:00 INR 0.97 10/13/18 10:00 APTT 28.0 Seconds (25.1-36.5) 10/13/18 10:00 - Constitutional Appears: Non-toxic, No Acute Distress - Eye Exam Eye Exam: EOMI, PERRL - ENT Exam ENT Exam: Mucous Membranes Moist - Respiratory Exam Respiratory Exam: Clear to Ausculation Bilateral. absent: Rales, Rhonchi, Wheezes - Cardiovascular Exam Cardiovascular Exam: RRR, +S1, +S2 - GI/Abdominal Exam GI & Abdominal Exam: Soft, Normal Bowel Sounds. 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), CAD s/p PCI on ASA/Plavix, chronic constipation, HTN, hyperlipidemia, BPH and large inguinal hernias who presented to the ED with abdominal pain -Severe constipation -CAD on ASA/Plavix -CLL -Large inguinal hernias Plan: -Passing stool daily -Recommend continuing regimen of Miralax as prescribed in house; to have Amitiza upon return home -Diet as tolerated - stressed adequate water/fiber intake -Ongoing hematologic work up per primary physician -Discussed case with cardiology who state patient may be able to come off ASA/Plavix between 3-6 months from stent placement; encourage outpatient eval/follow up -Will benefit from virtual colonography until surgery to repair hernia can be performed followed up endoscopic evaluations after recovery -OK for D/C from GI standpoint
--- NOTE | 2018-10-16 13:17 | PN ---
DATE: 10/14/2018 SUBJECTIVE: Patient was seen in the medical floor, was seen twice a day in the medical floor. First, patient was gone to the bathroom, he was having problem with controlling his loose bowel movement and causing problem. Patient seen later in night, he seems comfortable, he does have some confusion, he wants to get out of bed, when I spoke to him, he becomes so comfortable and got oriented again and seems better. He has no pain. He had a Rod in and we now at this time. PHYSICAL EXAMINATION: On 10/14 is as follows; VITAL SIGNS: Temperature is 97.2, heart rate 73, blood pressure 119/60, respirations 18, temperature 97% on room air. HEAD AND NECK: Normal. No JVD. No thyromegaly. CHEST: Clear bilateral. CARDIAC: First sound and second sound normal. ABDOMEN: Soft, there is large inguinal hernia right and left ones. NEUROLOGICAL: Normal. LABORATORY DATA: His laboratory study on the , there were no labs as ordered for tomorrow. IMPRESSION AND PLAN: 1. Chronic constipation seems gotten worse, had stool infections, now has loose bowel movement. We will continue followup and seen by GI . 2. He does have some psychosis pictures in the past, we will continue current therapy. He will be consulted by the psychiatrist for that. Continue Seroquel for now and he is on p.r.n. 3. Hypothyroidism. Continue Synthroid 50 mcg. 4. Coronary artery disease with recent right coronary artery stent, seems to do better. Continue Imdur, Lipitor, Plavix, aspirin. We will follow up clinically the patient. Hany Ag MD
--- NOTE | 2018-10-16 23:36 | PN ---
DATE: 10/16/2018 SUBJECTIVE: The patient is an 82-year-old single white male who reportedly has a delusional disorder. He has appeared odd and eccentric and become agitated. I have reviewed the patient's situation with nursing including our concern over his social interaction with a friend and cousin, and I have asked for social work involvement to further evaluate the patient's living situation and possible vulnerability to preying individuals. He has had been started on Risperdal 0.25 mg at bedtime in addition to the Remeron 15 mg at bedtime that he is on and Seroquel 25 mg at bedtime. The patient remains eager to go home. The patient has urinary retention with mild hydronephrosis and a mildly distended bladder. The patient had a stool infection which appears to have gotten better. He has coronary artery disease with previous stent placement. He reportedly has a past history of dementia with some psychosis in the past. Blood pressure 143/65, pulse 69, temperature 98, respiratory rate 18. The CBC and differential shows elevated white count of 14.6 (significantly lower than the 26.9 of yesterday), hemoglobin 11.4, hematocrit 35.5. A biochemical profile was within normal limits. We will continue to monitor with you. Mitesh Lainez MD/ PhD
[2018-10-17] MEDS: POLYETHYLENE GLYCOL 3350 17 GM/Dose PACKET PO SCH ×2 (09:20→20:05)
[2018-10-17] MEDS: Levothyroxine 50 MCG TAB PO SCH (09:25)
[2018-10-17] MEDS: Pantoprazole 20 mg EC Tab PO SCH (09:25)
[2018-10-17] MEDS: Lubiprostone [Amitiza] 24 MCG PO SCH (10:00)
[2018-10-17] MEDS: MULTIVITAMIN PO SCH (10:00)
--- NOTE | 2018-10-17 13:21 | PN ---
DATE: 10/16/2018 SUBJECTIVE: The patient has moved his bowels . No new complaints. PHYSICAL EXAMINATION VITAL SIGNS: Temperature 98, heart rate 69, blood pressure 143/65, respirations 18 and saturation 97%. HEAD AND NECK: Normal. No JVD, no thyromegaly. CHEST: Clear bilaterally. CARDIAC: First sound and second sounds are normal. ABDOMEN: Soft large inguinal hernia and Rod catheter in. EXTREMITIES: No edema. NEUROLOGIC: He moves all extremities. He is intermittently confused. LABORATORY DATA: White count 14.6, hemoglobin 11.4, hematocrit 35.5 and platelets 292. His chemistry; sodium 142, potassium 4.1, chloride 107, bicarb 28, BUN 21 and creatinine 1. Liver function test is normal. IMPRESSION AND PLAN: 1. Stool impaction, chronic constipation. Continue current therapy. Discussed with Dr. Downs. He will not get colonoscopy now because of the valves and the hernia. I need to fix the hernia first. 2. Urine retention, prostate enlargement. He needs a prostate surgery. Transurethral resection of the prostate cannot be done as the patient has bladder stent placement. I need at least 6 months after that. Then we will go ahead and proceed with that. Meanwhile I discussed with Dr. Juarez. Keep the Rod catheter for now. 3. The patient has coronary artery disease, right coronary artery stent. Continue current medications; Plavix and aspirin for now and metoprolol. 4. Hypothyroidism, dementia with some psychotic features, agitations. Continue Seroquel, Risperdal and Ativan p.r.n. We will and follow up clinically. 5. Hypothyroidism. The patient has problem with discharge. We wonder how the patient is going to do by himself. We need to discuss the nursing staff, with the family members about the patient's situations and the proper way of taking care of him at home. 6. He should be discharged. There is nothing acute we are doing except that and we will continue current therapy. Hany Ag MD
--- NOTE | 2018-10-17 16:19 | PN ---
DATE: 10/17/2018 SUBJECTIVE: The patient is an 82-year-old single white male, who reportedly had suffered from a delusional disorder. The patient remains sedate. I have been given an update of his situation both clinically and psychosocially by nursing. I have requested social work involvement due to the somewhat complex nature of the patient's living arrangement and his interaction with concerned others (a friend and cousin). The patient is presently being maintained on Seroquel 25 mg at bedtime and Risperdal 0.25 mg daily. Remeron has been stopped to help to try to regulate the patient's excessive sedation. PHYSICAL EXAMINATION: VITAL SIGNS: Blood pressure 126/55, pulse 69, temperature 97.9, and respiratory rate 20. Mitesh Lainez MD/ PhD
[2018-10-18] MEDS: Pantoprazole 20 mg EC Tab PO SCH (05:07)
[2018-10-18] MEDS: Levothyroxine 50 MCG TAB PO SCH (05:07)
[2018-10-18] MEDS: POLYETHYLENE GLYCOL 3350 17 GM/Dose PACKET PO SCH ×2 (10:38→19:02)
[2018-10-18] MEDS: Lubiprostone [Amitiza] 24 MCG PO SCH (10:41)
[2018-10-18] MEDS: MULTIVITAMIN PO SCH (10:46)
[2018-10-18 22:26] VITALS: O2SAT 98
[2018-10-19] MEDS: Pantoprazole 20 mg EC Tab PO SCH (07:42)
[2018-10-19] MEDS: Levothyroxine 50 MCG TAB PO SCH (07:43)
[2018-10-19 08:11] VITALS: BP 136/60; PULSE 72; RESP 18; TEMP 97.6
[2018-10-19] MEDS: POLYETHYLENE GLYCOL 3350 17 GM/Dose PACKET PO SCH ×2 (10:42→17:08)
[2018-10-19] MEDS: Lubiprostone [Amitiza] 24 MCG PO SCH (10:45)
[2018-10-19] MEDS: MULTIVITAMIN PO SCH (10:46)
--- NOTE | 2018-10-19 14:23 | CT ---
Date of service: 10/19/2018 PROCEDURE: CT HEAD WITHOUT CONTRAST. HISTORY: shuffling gait COMPARISON: 09/01/2018. CT head TECHNIQUE: Axial computed tomography images were obtained through the head/brain without intravenous contrast. Supplemental Coronal and Sagittal projections created and reviewed. Radiation dose: Total exam DLP = 974.57 mGy-cm. This CT exam was performed using one or more of the following dose reduction techniques: Automated exposure control, adjustment of the mA and/or kV according to patient size, and/or use of iterative reconstruction technique. FINDINGS: HEMORRHAGE: No intracranial hemorrhage. BRAIN: No mass effect or edema. Cortical and cerebellar atrophy, periventricular small vessel disease. VENTRICLES: Unremarkable. No hydrocephalus. CALVARIUM: Unremarkable. PARANASAL SINUSES: Unremarkable as visualized. No significant inflammatory changes. MASTOID AIR CELLS: Unremarkable as visualized. No inflammatory changes. OTHER FINDINGS: None. IMPRESSION: No acute intracranial abnormalities. No significant findings to account for the clinical presentation. No significant interval change compared to the prior examination(s).
--- NOTE | 2018-10-19 18:40 | PN ---
DATE: 10/17/2018 SUBJECTIVE: The patient is comfortable, has problems moving his bowels. He did move his bowels today. After the patient had the stool disimpaction, seen by GI fellow and specialist, he seems better now. He is wearing diapers. PHYSICAL EXAMINATION: VITAL SIGNS: Temperature 97.9, heart rate 69, blood pressure 126/55, respirations 20, saturation 96%. HEAD AND NECK: Normal. No JVD, no thyromegaly. CHEST: Clear bilaterally. CARDIAC: First sound and second sounds are normal. ABDOMEN: Soft, nontender, with large inguinal hernias, both sides, right more than left. EXTREMITIES: No edema. NEUROLOGIC: He moves all extremities. He is alert, awake, oriented. LABORATORY DATA: Last one shows white count 14.6, hemoglobin 14.1, hematocrit 35.5, platelets 292. Chemistries show sodium 142, potassium 4.1, chloride 107, bicarb 28, BUN 21, creatinine is 1. Liver function test is normal. Amylase and lipase have been done and is normal. IMPRESSION AND PLAN: 1. This is an 82-year-old male with bilateral hernia, constipation. He has positive family history of colon cancer. The patient will need a colonoscopy; however, I discussed with Gastroenterology, Dr. Downs. No colonoscopy until 6 months from now or 5 more months from now until he and be able to stop the Plavix. So, we will continue medical treatment for now. 2. Bilateral inguinal hernia. The patient will also need hernia surgery, not now. We need to wait five months. 3. Urine retention, chronic bladder and kidney mild hydronephrosis. Continue Rod catheter. Discussed with Dr. Juarez. We will keep the Rod for now. We will teach the patient how to use the bathroom in presence of the catheter and how to empty it. 4. Unsteadiness. He needs physical therapy. We will continue to see how the patient does before sending him home, which could be a challenge for him. 5. Chronic lymphocytic leukemia with severe splenomegaly with thrombocytopenia, anemia. I see the white count is coming down. We will monitor these conditions. At this time, seems stable. The patient may need a bone marrow to rule out any other underlying cancer or maybe dysplasia or bone marrow failure. We will continue to monitor his . Continue current therapy. 6. Coronary artery disease, right coronary artery stent placed. Continue Plavix and aspirin and continue current therapy. Hany Ag MD
--- NOTE | 2018-10-19 19:13 | PN ---
DATE: 10/18/2018 SUBJECTIVE: The patient is comfortable, in no distress. Wants to go home. Lying in bed with some restraints, getting agitated. Seen by psychiatrist. The patient otherwise is medically stable. He had a bowel movement with no diarrhea and has Rod in. PHYSICAL EXAMINATION: On 10/17/2018 is as follows: VITAL SIGNS: Temperature 99.8, heart rate 93, blood pressure 126/55, respirations 20, saturation 96% on room air. HEAD AND NECK: Normal. No JVD, no thyromegaly. CHEST: Clear bilaterally. CARDIAC: First sound and second sounds are normal. ABDOMEN: Soft, nontender, with large inguinal hernias. EXTREMITIES: No edema. NEUROLOGIC: Normal with unsteady gait. LABORATORY DATA: None is done. IMPRESSION AND PLAN: 1. Unsteady gait, generalized weakness. The patient will need physical therapy. How to adapt with the Rod, how to function at home. I discussed with his relative, Mr. Christian Maya and we will continue to monitor the patient and do physical therapy. Possible transitional care unit. 2. Chronic lymphocytic leukemia, stable, and leukocytosis, anemia, and thrombocytopenia, with severe splenomegaly. Oncology has seen the patient in the past and the patient will need a bone marrow at this time although. 3. Coronary artery disease, right coronary artery stent, doing okay. 4. Bilateral hernia. Needs surgery. Bladder incontinence, plus hydronephrosis mild with distended bladder. Continue Rod catheter for now for six months, to get the surgery done in five more months. 5. The patient has some anxiety and agitation. We will continue current therapy. 6. The patient also has hypothyroidism. MEDICATIONS: Continue Protonix, Proscar, Plavix, Pepcid, Mirapex, MiraLAX, Amitiza, Lipitor, Imdur, Flomax, Colace, Ecotrin, Caltrate, Ativan, Seroquel 25, Synthroid 50, Tenormin 25 mg daily. Continue current therapy. Probably the patient will be evaluated for transistional care unit for more physical therapy. Hany Ag MD [facility] # [id number]
--- NOTE | 2018-10-19 19:24 | PN ---
DATE: 10/19/2018 SUBJECTIVE: The patient is seen today, seen by neurologist Dr. Rodriguez, CT will be ordered. The patient is alert, awake. He is comfortable, eating, sitting in a chair. PHYSICAL EXAMINATION: As follows: VITAL SIGNS: His temperature is 97.6, heart rate 72, blood pressure 126/60, respirations 18, saturating 98% on room air. HEAD AND NECK: Normal. No JVD, no thyromegaly. CHEST: Clear bilaterally. CARDIAC: First sound and second sounds are normal. ABDOMEN: Soft, nontender. He has bilateral inguinal hernia, right more than left. EXTREMITIES: No edema. NEUROLOGIC: Normal, except unsteady gait and weakness. LABORATORY DATA: None. IMPRESSION AND PLAN: 1. Generalized weakness, unsteady gait. Continue physical therapy. 2. Urinary retention, Rod catheter in. Mild hydronephrosis bilateral. Continue Rod, Flomax, and Proscar. 3. Bilateral inguinal hernia. We need surgery in 12 more months. 4. Coronary artery disease, right coronary artery stents put in, Plavix. Continue current therapy. 5. Hypothyroidism. The patient has some insomnia, agitations, mild. Continue current medications. 6. Chronic constipation, which got worse. The patient will need a colonoscopy, cannot be done now. PLAN: Continue current therapy. Currently, Ativan, Caltrate, Colace, Ecotrin, Flomax, Imdur 60, Lipitor 40, Amitiza once a day, MiraLAX twice a day, ____ t.i.d., multivitamins, Pepcid, Plavix, Proscar, Protonix, Risperdal, Seroquel, Synthroid, and Tenormin. Continue current therapy. Follow up clinically. After CT scan, he will be ready to be discharged to [facility]. Hany Ag MD
--- NOTE | 2018-10-19 20:55 | CON ---
DATE: 10/19/2018 HISTORY OF PRESENT ILLNESS: This is an 82-year-old male with the past medical history of chronic lymphocytic leukemia, hypothyroidism, coronary artery disease, high cholesterol and right coronary artery stent and recently the patient had right coronary artery stent and now he is severely constipated and also has difficulty ambulating and . PAST MEDICAL HISTORY: As above. ALLERGIES: NO KNOWN DRUG ALLERGIES. SOCIAL HISTORY: Does not smoke or drink. PHYSICAL EXAMINATION: HEENT: Normocephalic and atraumatic. NECK: Supple. NEUROLOGIC: Awake and oriented to self. Cranial nerves II through XII are tested. Pupil reactive. EOMI are intact. Visual salas full. No facial asymmetry. Tongue midline. Motor examination: Spontaneous movement of the extremities are noted. Deep tendon reflexes are 1+. Plantars are downgoing. Sensory appears intact. Cerebellar gait able to ambulate with a physical therapist and little bit shuffling of the gait was noted. ASSESSMENT AND PLAN: We ordered the CAT scan of the head without contrast and continue physical therapy with gait training. We will followup. Yevgeniy Rodriguez MD
== END 2018-10-19 18:13 | DRG 389 ==
LOC: ED 08:38 → ERH 13:03 → 5RSO 14:19
PROVIDERS: ADMIT Internal Medicine; ATTEND Internal Medicine
PROC: 0T9B70Z Drainage of Bladder with Drainage Device, Via Natural or Artificial Opening (ICD-10-PCS; principal; 2018-10-14)
DX: K56.41 Fecal impaction (principal); N13.30 Unspecified hydronephrosis; C91.10 Chronic lymphocytic leukemia of B-cell type not having achieved remission; D64.9 Anemia, unspecified; D69.6 Thrombocytopenia, unspecified; K40.20 Bilateral inguinal hernia, without obstruction or gangrene, not specified as recurrent; I25.10 Atherosclerotic heart disease of native coronary artery without angina pectoris; N40.0 Benign prostatic hyperplasia without lower urinary tract symptoms; Q55.64 Hidden penis; D72.829 Elevated white blood cell count, unspecified; E03.9 Hypothyroidism, unspecified; E78.00 Pure hypercholesterolemia, unspecified; E78.5 Hyperlipidemia, unspecified; F03.90 Unspecified dementia, unspecified severity, without behavioral disturbance, psychotic disturbance, mood disturbance, and anxiety; F41.9 Anxiety disorder, unspecified; G47.00 Insomnia, unspecified; I10 Essential (primary) hypertension; R32 Unspecified urinary incontinence; Z79.02 Long term (current) use of antithrombotics/antiplatelets; Z79.899 Other long term (current) drug therapy; Z80.0 Family history of malignant neoplasm of digestive organs; Z85.72 Personal history of non-Hodgkin lymphomas; Z95.5 Presence of coronary angioplasty implant and graft; R26.81 Unsteadiness on feet; R53.1 Weakness; Z78.1 Physical restraint status

== ENCOUNTER 2018-10-19 18:19 | Inpatient (IN) | payer BC ==
[2018-10-19 18:23] VITALS: BMI 19.8
[2018-10-19] MEDS ORDERED: POLYETHYLENE GLYCOL 3350 17 GM/Dose PACKET PO PRN (18:24)
[2018-10-20] MEDS: Pantoprazole 20 mg EC Tab PO SCH (05:38)
[2018-10-20] MEDS: Levothyroxine 50 MCG TAB PO SCH (05:38)
[2018-10-20] MEDS ORDERED: Multivitamin Therapeutic Tab PO SCH (10:00)
[2018-10-20] MEDS ORDERED: Non Formulary Medication (Lubiprostone [Amitiza] 24 MCG) PO SCH (10:00)
[2018-10-20] MEDS: Lubiprostone [Amitiza] 24 MCG PO SCH (10:05)
[2018-10-20] MEDS: MULTIVITAMIN PO SCH (10:06)
--- NOTE | 2018-10-20 19:46 | PN ---
DATE: 10/20/2018 SUBJECTIVE: The patient is an 82-year-old single white male who reportedly has a delusional disorder. He is alert, but gets confused and maybe hallucinating. Nursing reports that he had been talking about being cautious around a nonexistent item. It is my understanding that the patient's cousin, who was visiting earlier, has a power of estate planning attorney over the patient. The reason for this is not entirely clear, although the patient does appear to be demented. Nonetheless, I have expressed my concern and still express my concern about the level of interaction between he, his friend and cousin and the possible financial linkages between this triad. The patient psychotropically is on Risperdal 0.25 mg daily and Seroquel 25 mg at bedtime. Blood pressure 102/53, temperature 98, respiratory rate 18, pulse 80. The patient was seen earlier today by Neurology (Dr. Rodriguez). Medically, he suffers from generalized weakness, urinary retention, bilateral inguinal hernia, coronary artery disease with stents in his right coronary artery, hypothyroidism, chronic constipation. A CAT scan of his head earlier this day showed no acute intracranial abnormalities with no significant findings to account for his clinical presentation and with no significant interval change compared to his prior examination (09/01/2018). Mitesh Lainez MD/ PhD
[2018-10-21] MEDS: Levothyroxine 50 MCG TAB PO SCH (05:29)
[2018-10-21] MEDS: Pantoprazole 20 mg EC Tab PO SCH (05:29)
[2018-10-21] MEDS: MULTIVITAMIN PO SCH (09:22)
[2018-10-21] MEDS: Lubiprostone [Amitiza] 24 MCG PO SCH (09:42)
--- NOTE | 2018-10-21 18:55 | CON ---
DATE: 10/21/2018 [facility] is [facility] visit on TCU. For Dr. Tran consult. CHIEF COMPLAINT: Deconditioning. HISTORY OF PRESENT ILLNESS: The patient is an 82-year-old male, now seen on TCU after recent hospitalization for evaluation and treatment and diagnosis of B-cell lymphoma, CD5 after flow cytometric analysis and identification of the abnormal findings. At present, he is now transferred to TCU from the medical floor for after being treated for severe constipation. The patient also is being seen by Dr. Lainez, Psychiatry with treatment being given in that respect. He appears comfortable, sitting in a chair, in no acute distress this visit with no treatment of his CLL. Recently, due to his advanced age with his lab parameters not meeting criteria for treatment at that time. PAST MEDICAL HISTORY: CD5 positive B-cell lymphoma, hypertension, BPH, bilateral inguinal herniae, dementia? with delusions, hypothyroidism, thrombocytopenia, splenomegaly, ASCVD with stenting, and chronic constipation. FAMILY HISTORY: Noncontributory. SOCIAL HISTORY: Noncontributory. Nonethanolic and nonsmoker. ALLERGIES: NO KNOWN ALLERGIES. MEDICATIONS: At this time include Ativan, Caltrate, Colace, Ecotrin, Flomax, Imdur, Lipitor, Amitiza, MiraLax, Mirapex, multivitamin, Pepcid, Plavix, Proscar, Protonix, Risperdal, Seroquel, Synthroid, Tenormin, and Tylenol. REVIEW OF SYSTEMS: A 12-point review of systems was done, which is negative except for items mentioned in the history of present illness. PHYSICAL EXAMINATION: VITAL SIGNS: Temperature 98.3, pulse 70, respirations 18, blood pressure 110/51, and pulse ox 98%. GENERAL: He appears disheveled. HEENT: Otherwise unremarkable. NECK: Supple. HEART: Regular rate. LUNGS: Clear. ABDOMEN: Soft and nontender with history of splenomegaly. EXTREMITIES: No edema. SKIN: Warm and dry with pigmented lesions. Pigmented nevi noted on his face, upper back, and chest. NEUROLOGIC: Somnolent, but arousable. LABORATORY DATA: The patient's labs were done 4 days prior with a white blood cell count of 14.6, on admission it was 26.9, hemoglobin 11.4, hematocrit 34.5, and platelet count of 92,000. His INR on this admission was 0.97 with a completely normal metabolic panel done 5 days prior. On flow cytometric analysis done on 09/03/2018; the results for that of involvement by CD5 positive B-cell lymphoma. ZAP-70 positivity less than 10% of B cells in correlation with favorable prognostic features including longer time to treatment. The patient had a CAT scan of his head done 2 days prior, it was read as no acute intracranial abnormalities, no significant findings to account for clear presentation. ASSESSMENT: B-cell lymphoma; deconditioning; atherosclerotic cardiovascular disease, status post stenting; bilateral inguinal herniae; hypothyroidism; dementia/delusions; thrombocytopenia; splenomegaly; and constipation. PLAN: The patient is to continue his present medical regimen on TCU. We will order for labs in the morning with further recommendations as indicated with TCU protocols to be followed. This is a complex patient with a comprehensive medically necessary and appropriate visit carried out in excess of 30 minutes with the patient's questions answered to his satisfaction. Also it should be noted that the patient was incontinent of stool and wore diaper on his admission. Trey Gillette MD
--- NOTE | 2018-10-21 21:23 | HP ---
DATE OF EXAM: 10/20/2018 REASON FOR ADMISSION: Generalized weakness, gait disorders, and need for physical therapy. HISTORY OF PRESENT ILLNESS: This is an 82-year-old male with history of chronic lymphocytic leukemia, questionable lymphoma who has urinary retention with mild hydronephrosis, status post Rod catheter permanent insertion for now 5 months until we do the TURP plus stool impaction with chronic constipation that seems doing okay now and moving his bowels good. The patient has no complaints other than weak, unstable and unsteady and feeling weak and need more physical therapy, sometimes he does get agitated because of his inability to walk and to ambulate. PAST MEDICAL HISTORY: As I mentioned coronary artery disease, right coronary artery stent, hypercholesterolemia, bilateral inguinal hernia large right more than left, history in the past of delusions like a smoke coming out of the bathroom for which he take Seroquel. He also has some sorts of dementia. ALLERGIES: NO KNOWN ALLERGIES. SOCIAL HISTORY: He lives by himself, the cousin is support to him and his cousin Mr. Gonzales has a power of trust and estates attorney on him and manage his financial situations, medical stuff and take him to the doctors and communicate with him. He is , as far as I know he lives by himself, he has no children. He finished high school and he is otherwise stable. MEDICATIONS: Currently Risperdal 0.25 mg p.o. daily, Flomax 0.4 once a day, Seroquel 25 at bedtime, MiraLax, Protonix, multivitamins, Remeron 15 at bedtime, metoprolol 12.5 b.i.d., Amitiza 24 once a day, Synthroid 50 once a day, Ativan p.r.n., Imdur 60 mg daily, Proscar once a day, Pepcid 40 once a day, Caltrate, Lipitor 40, aspirin 81, and Plavix 75. REVIEW OF SYSTEMS: As in present illness, he has gait instability, has inguinal hernias, problem concentrations and focusing, he has incontinence of urine and has a Rod catheter in. PHYSICAL EXAMINATION: VITAL SIGNS: Temperature 98.1, heart rate 80, blood pressure 98/50, and respirations 18. HEAD AND NECK: Normal. No JVD. No thyromegaly. CHEST: Clear bilateral. CARDIAC: First sound and second sound normal. ABDOMEN: Soft and nontender. He has right inguinal hernia larger than left. EXTREMITIES: Lower extremities, no edema. NEUROLOGIC: Normal. IMPRESSION AND PLAN: 1. Chronic constipation got worse better now with current medications. 2. Generalized weakness, gait instability, and need physical therapy, continue that. 3. Chronic urinary retention with dribbling and prostate enlargement, seen by Ann in the past. At this time, the patient had Rod catheter permanent because he cannot get surgery done for the next 5 months with a recent stent placement. 4. Anemia, thrombocytopenia, and chronic lymphocytic leukemia. The patient will need endoscopy cannot be done until 5 months, so we will continue supportive care. Continue current management. Continue beta-cm, Lipitor, aspirin, Plavix, and we will followup. Hany Ag MD
--- NOTE | 2018-10-21 23:27 | PN ---
DATE: 10/21/2018 SUBJECTIVE: The patient seems doing well. He is walking with minimal assistance. No other problems, seems doing well. He walks without a cane or without any walker. He seems reasonable talk. He is alert, awake, and oriented x3. He seems to do well, needs encouragement. PHYSICAL EXAMINATION: VITAL SIGNS: Temperature 98.3, heart rate 83, blood pressure 110/53, respirations 18, sat 98%. HEAD AND NECK: Normal. No JVD. No thyromegaly. CHEST: Clear bilaterally. CARDIAC: First sound and second sound normal. ABDOMEN: Soft and nontender. EXTREMITIES: No edema. He moves all extremities. NEUROLOGIC: Normal. Gait needs more exercise, unstable gait. ASSESSMENT AND PLAN: 1. Generalized weakness, unstable gait. Continue physical therapy on daily basis. The patient was advised by me while he was sitting in a chair to move his leg and upper extremity up and down, and I gave him some instructions that helps him and continue that. The patient will be training about Rod catheter, how to and how to change it while he is sitting, cannot do it while he stands up. 2. Chronic lymphocytic leukemia. Continue current therapy. 3. Anemia. 4. Chronic constipation, needs colonoscopy after 5 months from now. 5. Coronary artery disease status post right coronary stenting, needs 12 more months on Plavix and aspirin. Continue beta cm and Lipitor. 6. Urinary retention, on Proscar and Flomax. He will need a transurethral resection of prostate. Mild hydronephrosis. function good. Kidney function good. Creatinine is normal. Continue current therapy. 7. The patient has dementia. He does have some agitations, but seems doing well now. Continue current therapy. Discussed with the cousin, Mr. Christian Quintero about the patient's condition, what is needed. It seems like he thinks he is deteriorating and may be he needs hospice care, but apparently the patient seems just needs encouragement and some training how to change the catheter, he will do well; may need home physical therapy, and I explained to him, he seems agreeable with the plan. We will continue that and we will follow up clinically. Hany Ag MD
[2018-10-22] MEDS: Pantoprazole 20 mg EC Tab PO SCH (06:22)
[2018-10-22] MEDS: Levothyroxine 50 MCG TAB PO SCH (06:22)
[2018-10-22 06:23] LABS: BASO # 0.03 K/mm3 (0.0-2.0); BASO % 0.3 % (0.0-3.0); EOS # 0.1 (0.0-0.7); EOS % 1.1 % (1.5-5.0); GRAN # 0.98 (1.4-6.5); GRAN % 11.3 % (50.0-68.0); HEMOGLOBIN 11.4 g/dL (14.0-18.0); LYMPH # 6.7 (1.2-3.4); LYMPH % 77.2 % (22.0-35.0); MEAN CELL VOLUME 96.8 fl (80.0-105.0); MEAN CORPUSCULAR HEMOGLOBIN 30.8 pg (25.0-35.0); MEAN CORPUSCULAR HGB CONC 31.8 g/dl (31.0-37.0); MEAN PLATELET VOLUME 11.3 fl (7.0-11.0); MONO # 0.9 (0.1-0.6); MONO % 10.1 % (1.0-6.0); PLATELET COUNT 108 10^3/uL (120.0-450.0); RED CELL DISTRIBUTION WIDTH 14.1 % (11.5-14.5); WHITE BLOOD COUNT 8.7 10^3/uL (4.5-11.0)
[2018-10-22 06:49] LABS: ALB/GLOB RATIO 1.6 (1.1-1.8); ALBUMIN 3.7 g/dL (3.0-4.8); ALT/SGPT 27 U/L (7-56); AST/SGOT 28 U/L (17-59); BLOOD UREA NITROGEN 30 mg/dL (7-21); CALCIUM 8.8 mg/dL (8.4-10.5); GFR NON-AFRICAN AMERICAN > 60
[2018-10-22 07:54] LABS: ATYPICAL LYMPHOCYTE 1 % (0.0-0.0); BAND 1 % (0-2); BASOPHIL 1 % (0.0-1.0); LYMPHOCYTE 79 % (22.0-35.0); MONOCYTE 10 % (1.0-6.0); NEUTROPHIL 8 % (50.0-70.0); NUCLEATED RED BLOOD CELL 1 %
[2018-10-22 07:55] LABS: PLATELET ESTIMATE LOW (NORMAL)
[2018-10-22] MEDS: Lubiprostone [Amitiza] 24 MCG PO SCH (10:32)
[2018-10-22] MEDS: MULTIVITAMIN PO SCH (10:32)
[2018-10-22] MEDS: Tobramycin/Dexamethasone (Tobradex) Opth Sol (2.5 ml) OU SCH ×3 (14:42→23:00)
[2018-10-23] MEDS: Levothyroxine 50 MCG TAB PO SCH (05:30)
[2018-10-23] MEDS: Pantoprazole 20 mg EC Tab PO SCH (05:30)
--- NOTE | 2018-10-23 08:33 | CON ---
DATE: 10/22/2018 HISTORY OF PRESENT ILLNESS: Mr. Vikr is an 82-year-old white male whom I saw in consultation at the [facility]. PHYSICAL EXAMINATION: EYES: His visual acuity was 20/80 in each eye. Corneal exam is normal. Lens exam showed cataracts in both eyes. Fundus exam early macular changes. Conjunctival exam mildly injected conjunctivae in both eyes. ASSESSMENT AND PLAN: Mr. Virk has conjunctivitis and cataracts. I put him on TobraDex 1 drop both eyes four times a day and I advised him to see me as an outpatient after discharge. Jorge Sifuentes MD
--- NOTE | 2018-10-23 08:39 | PN ---
DATE: 10/22/2018 SUBJECTIVE: The patient is an 82-year-old somewhat eccentric, mildly demented single white male. I have reviewed his situation with nursing. He gets mildly confused, but is not agitated. His Risperdal was stopped because of excessive sedation and because of request by his caregiver. I have asked for social work involvement regarding further review of the nature of relationships of those that are overseeing his care. PHYSICAL EXAMINATION VITAL SIGNS: Blood pressure 121/68, pulse 81, temperature 98.5. Mitesh Lainez MD/ PhD
[2018-10-23] MEDS: MULTIVITAMIN PO SCH (09:44)
[2018-10-23] MEDS: Lubiprostone [Amitiza] 24 MCG PO SCH (09:44)
[2018-10-23] MEDS: Tobramycin/Dexamethasone (Tobradex) Opth Sol (2.5 ml) OU SCH ×4 (09:45→23:21)
--- NOTE | 2018-10-23 13:35 | PN ---
DATE: 10/22/2018 SUBJECTIVE: The patient is clinically doing better. He is working better. He is more alert, awake, and oriented x 3. He is sitting comfortable, started walking with some confidence and feeling better. PHYSICAL EXAMINATION: VITAL SIGNS: Temperature 98.5, heart rate 81, blood pressure 121/68, respirations 20, and saturations 98%. HEAD AND NECK: Normal. No JVD. No thyromegaly. CHEST: Clear bilaterally. CARDIAC: First sounds and second sounds are normal. ABDOMEN: Soft and nontender. EXTREMITIES: No edema. NEUROLOGIC: Normal. LABORATORY DATA: White count 8.7, hemoglobin 11.4, hematocrit 35.8, and platelets 108. Chemistry: Sodium 141, potassium 4, chloride 105, BUN 30, and creatinine 1. IMPRESSION AND PLAN: 1. Weakness, gait instability, seems to be doing better with walking and physical therapy. Continue that. 2. History of chronic lymphocytic leukemia, numbers are very good. We will follow up with oncologist. He could be getting into some sort of myelodysplasia, in the process of myelodysplasia. We will discuss with the oncologist. The patient has severe splenomegaly, thrombocytopenia, and anemia. 3. Chronic constipation. The patient does have stool infection, resolved, doing better with the bowel movement now. He may need colonoscopy that cannot be done because of the hernias. 4. Urinary retention. Continue Rod. The patient was advised to change his Rod bag only when he is sitting on a chair, not when he is standing to avoid fall. I did speak to him about hip cushions and risk of fall prevention and fracture of hip. 5. Hypothyroidism, mild dementia, prostate enlargement. We will continue current therapy. We will follow up clinically. We will discuss with Neurology about Mirapex 0.25 mg t.i.d., may be that has been given for him, but seems tolerating it well. We will discuss with the neurologist. Continue current medications. 6. Coronary artery disease, right coronary artery stent, doing well. Continue Plavix and aspirin. We will continue current therapy. We will follow up clinically. We will get some home diet assistant to the patient. Hany Ag MD [facility] # [id number]
--- NOTE | 2018-10-23 23:10 | PN ---
DATE: 10/23/2018 ONCOLOGY AND HEMATOLOGY PROGRESS NOTE LOCATION: The patient is in room 317, bed 1. SUBJECTIVE: The patient is doing better. He is walking. He is awake, alert, and oriented. He is sitting comfortable and feeling more confident of himself. PHYSICAL EXAMINATION VITAL SIGNS: Stable as stated in the chart. HEENT: Reveals head to be normocephalic, atraumatic. Conjunctivae pale. Sclerae anicteric. Pupils are equally reactive to light and accommodation. Examination of the oropharynx reveals no oropharyngeal lesions. NECK: Supple. There is no adenopathy. LUNGS: Clear to percussion and auscultation. HEART: Reveals PMI in the fifth intercostal space inside the midclavicular line. S1 and S2 are normal. No gallop or murmur is heard. ABDOMEN: Protuberant, soft, and nontender. No rebound, rigidity, or guarding is noted. EXTREMITIES: Reveals no cyanosis, clubbing, or edema. LABORATORY DATA: Reveals hemoglobin of 11.4, hematocrit of 35.8, platelet count 108,000, white count which was elevated in the past is down to 8.7. MEDICATIONS: The patient's medications were reviewed. They are unchanged. The patient is now on Amitiza 24 mcg daily for his constipation. ASSESSMENT NOTES AND PLAN: The patient has documented chronic lymphocytic leukemia which is being followed without any active treatment. Weakness and gait instability which is getting better slowly secondary to deconditioning. Chronic constipation, urinary retention, hypothyroidism, benign prostatic hyperplasia, and mild dementia. We will continue to follow the patient as an outpatient once he is discharged as far his chronic lymphocytic leukemia is concerned. No active intervention is necessary at this point. If patient does develop ongoing intermittent infections, especially of the upper respiratory tract, he may be a candidate for intravenous gamma globulin. Josue Tran MD
[2018-10-24] MEDS: Pantoprazole 20 mg EC Tab PO SCH (05:26)
[2018-10-24] MEDS: Levothyroxine 50 MCG TAB PO SCH (05:27)
[2018-10-24] MEDS ORDERED: Ergocalciferol 50,000 Intl Units Cap PO SCH (09:15)
[2018-10-24] MEDS: Lubiprostone [Amitiza] 24 MCG PO SCH (09:41)
[2018-10-24] MEDS: MULTIVITAMIN PO SCH (09:42)
[2018-10-24] MEDS: Tobramycin/Dexamethasone (Tobradex) Opth Sol (2.5 ml) OU SCH ×4 (09:43→21:34)
--- NOTE | 2018-10-24 13:53 | PN ---
DATE: 10/23/2018 SUBJECTIVE: The patient in TCU. He is walking better without any walker, stable. No chest pain. Not short of breath. He is doing better with physical therapy. PHYSICAL EXAMINATION: As follows: GENERAL: The patient is alert, awake, oriented x3. VITAL SIGNS: Temperature is 98.9, heart rate 85, blood pressure 108/58, respirations 18, and saturations 97%. HEAD AND NECK: Normal. No JVD. No thyromegaly. CHEST: Clear bilaterally. CARDIAC: First sounds and second sounds are normal. ABDOMEN: Soft and nontender. He does have bilateral inguinal hernia, EXTREMITIES: No edema. NEUROLOGIC: Normal. IMPRESSION: 1. Generalized weakness, deconditioning, doing better, walking better. He knows how to change the Rod. We advised him to do it while sitting and may need pizza hut assistant at home. I spoke with Christian, his cousin who is helping him over years and we will follow up with is going to see the patient tomorrow, which is going to help him at home and there is another son I discussed with Mr. Gonzales about her. She can help him also to 2:00, we will see how can support the patient at home and give him some assistance. 2. Coronary artery disease, status post sent placement on the right coronary artery. Continue Plavix and aspirin. I discussed with the patient about that and we have to wait five more months to get the hernia repair and the transurethral resection of the prostate for prostate. 3. Urinary retention, prostate enlargement, hydronephrosis mild. His kidney function is normal and we will have to be careful for any urinary tract infection, fever or any problem like that. He seems doing well. 4. Inguinal hernia bilateral, right worse than left, stable. We will do surgery after five months. 5. Anemia. No colonoscopy for now. The patient has problem getting colonoscopy done. PLAN: Continue currently therapy including the following, Ativan 0.5 every 4 hours p.r.n., probably we did not stop that, he seems does not need it because of the risk of fall, calcium, Colace, aspirin, Flomax, Imdur 60 mg once a day, Lipitor 40 mg p.o. with dinner, Amitiza he has it at home once a day and MiraLax b.i.d. p.r.n. Mirapex has been given to the patient t.i.d., multivitamins, Pepcid 40, Plavix 75, Proscar 5, Protonix 20, Seroquel 25 at night, Synthroid 50, Tenormin 25, we may need to be careful on that because of blood pressure problem and TobraDex ophthalmic suspension has been given to the patient, timing will be every 6 hours. Continue current therapy. Hany Ag MD
--- NOTE | 2018-10-24 18:09 | PN ---
DATE: 10/24/2018 I have reviewed the patient's situation with nursing and had interviewed the patient. Of a site note, after an approximately 10-minute into the computer system which had froze has started to work. The patient is an 82-year-old, somewhat odd and eccentric single white male. It is been noted that he gets confused, although today he is able to tell me that he is in [place] (he could not identify the hospital), indicates that he knows me, having met me at a (with my having no such recollection), but the patient is not recognizing that he has met me in the hospital, or that I am a physician. He denies any particular stress or distress and indeed appears to be more alert and interactive since having been taking off Risperdal. His BUN is elevated at 30. Blood pressure 125/62, temperature 98.9, respiratory rate 18. The patient has indicated that he is looking into getting a private aide (through his power of immigration attorney). The only psychotropic medication that the patient is presently receiving is p.r.n. Ativan and Mirapex 0.25 mg t.i.d. and Seroquel 25 mg at bedtime. Mitesh Lainez MD/ PhD
[2018-10-24] MEDS: Nystatin 100,000 Units/ml Oral Susp 5 ml UD PO SCH (21:34)
--- NOTE | 2018-10-25 01:17 | PN ---
DATE: 10/24/2018 This is [facility] visit on TCU. For Dr. Tran. SUBJECTIVE: The patient is an 82-year-old male, now on TCU for deconditioning, known to have B-cell lymphoma with the patient now participating in TCU protocols, appears to be in no acute distress except for poor appetite. Upon inspection and examination of his tongue, there is a thick coating with suspected oropharyngeal candidiasis. Good oral hygiene and Mycostatin swish and swallow to be recommended. PHYSICAL EXAMINATION: VITAL SIGNS: Temperature 98.2, pulse 77, respirations 20, blood pressure 108/63, and pulse oximetry 98%. HEENT: Tongue is coated with a whitish debris, dry. NECK: Supple. HEART: Regular rate. LUNGS: Clear. ABDOMEN: Positive splenomegaly, nontender. EXTREMITIES: No edema with known bilateral inguinal hernia. SKIN: Warm and dry. NEUROLOGIC: Somnolent, but arousable. LABORATORY DATA: The patient's labs were done two days prior showing white blood cell count of 8.7, hemoglobin 11.5, hematocrit 35.8, platelet count of 108,000 with a metabolic panel showing a BUN of 30; otherwise, normal panel. ASSESSMENT: For this patient is deconditioning, chronic lymphocytic leukemia, gait disturbance, weakness, chronic constipation, urinary retention, hypothyroidism, benign prostatic hyperplasia, dementia with oropharyngeal candidiasis suspected. PLAN: The plan for this patient is to continue TCU protocols with nystatin swish and swallow to be recommended along with oral hygiene and to brush the tongue with a soft toothbrush every 2 days. This is a complex patient with comprehensive medically necessary and appropriate visit carried out in excess of 15 minutes with the nurse's advice of the recommendations for this patient. Trey Gillette MD
[2018-10-25] MEDS: Levothyroxine 50 MCG TAB PO SCH (06:09)
[2018-10-25] MEDS: Pantoprazole 20 mg EC Tab PO SCH (06:09)
[2018-10-25] MEDS: Tobramycin/Dexamethasone (Tobradex) Opth Sol (2.5 ml) OU SCH ×4 (09:31→21:22)
[2018-10-25] MEDS: Lubiprostone [Amitiza] 24 MCG PO SCH (09:31)
[2018-10-25] MEDS: MULTIVITAMIN PO SCH (09:31)
[2018-10-25] MEDS: Nystatin 100,000 Units/ml Oral Susp 5 ml UD PO SCH ×4 (09:33→21:19)
--- NOTE | 2018-10-25 19:12 | PN ---
DATE: 10/25/2018 This is [facility] visit on TCU. For Dr. Tran: SUBJECTIVE: The patient is an 82-year-old male seen sitting up in chair, without complaints today, reporting that his appetite is better with the patient brushing his tongue and now being treated for oropharyngeal candidiasis. He is otherwise known to have B-cell lymphoma and here for deconditioning to improve prior to discharge home. OBJECTIVE/PHYSICAL EXAMINATION: VITAL SIGNS: Temperature 98.2, pulse 84, respirations 20, blood pressure 98/50, pulse ox 95%. HEENT: Tongue is coated but modestly improving since yesterday, it is moist. NECK: Supple. HEART: Regular rate. LUNGS: Clear. ABDOMEN: Positive splenomegaly, nontender. EXTREMITIES: No edema. SKIN: Warm and dry. NEUROLOGIC: Awake and alert. ASSESSMENT: For this patient is that of deconditioning, chronic lymphocytic leukemia, gait disturbance, weakness, chronic constipation, urinary retention, hypothyroidism, benign prostatic hyperplasia, dementia, oropharyngeal candidiasis with large bilateral inguinal hernia with no obstruction as of CT scan dated 10/13/2018 with borderline hydronephrosis bilaterally. PLAN: For this patient is to continue present medical regimen with labs allowed 2 times per visit or stay on TCU to be done as per Dr. Ag's recommendation. We will monitor clinically and with labs. This is a complex patient with a comprehensive medically necessary and appropriate visit carried out in excess of 15 minutes with the patient's questions answered to his satisfaction. Trey Gillette MD
--- NOTE | 2018-10-26 02:54 | PN ---
DATE: 10/25/2018 SUBJECTIVE: Juni Virk is an 82-year-old male. He seems stable, comfortable, wants to go home, still looking for some assistance to go with him at home. Otherwise, the patient seems stable. Discussed with his cousin. PHYSICAL EXAMINATION: VITAL SIGNS: Temperature 98.5, heart rate 78, blood pressure 118/63, respirations 20, saturation 97%. HEAD AND NECK: Normal. No JVD. No thyromegaly. CHEST: Clear bilaterally. CARDIAC: First sounds and second sounds are normal. ABDOMEN: Soft, nontender. EXTREMITIES: No edema. NEUROLOGICAL: Normal. IMPRESSION AND PLAN: 1. Generalized weakness, deconditioning. Plan, continue physical therapy, gait training, transfer, and strengthening. The patient seems doing better. We will continue current therapy. 2. The patient has thrombocytopenia, anemia. His white count is 8.7. The patient has CLL on previous diagnosis. Seems stable. All may go into bone marrow failure or myelodysplasia. We will continue to monitor with the press tender smoke signal. 3. Coronary artery disease, right coronary artery stent, seems stable. 4. Bilateral inguinal hernia. Will need surgery later. 5. Anemia. The patient was scheduled for colonoscopy five months. 6. Urinary retention which Rod in and mild hydronephrosis. We will follow up with the urologist, Dr. Juarez. Continue current therapy. Hany Ag MD
[2018-10-26] MEDS: Pantoprazole 20 mg EC Tab PO SCH (05:03)
[2018-10-26] MEDS: Levothyroxine 50 MCG TAB PO SCH (05:03)
[2018-10-26] MEDS: Lubiprostone [Amitiza] 24 MCG PO SCH (10:23)
[2018-10-26] MEDS: Nystatin 100,000 Units/ml Oral Susp 5 ml UD PO SCH ×4 (10:25→21:12)
[2018-10-26] MEDS: MULTIVITAMIN PO SCH (10:25)
[2018-10-26] MEDS: Tobramycin/Dexamethasone (Tobradex) Opth Sol (2.5 ml) OU SCH ×4 (10:28→21:13)
--- NOTE | 2018-10-26 13:00 | PN ---
DATE: 10/26/2018 This is [facility]'s [facility] visit on TCU. For Dr. Tran: SUBJECTIVE: Patient is an 82-year-old male seen sitting up in the chair, participating with TCU protocols, appetite is better after treatment for his oropharyngeal candidiasis, known to have B-cell lymphoma, in no acute distress. OBJECTIVE/PHYSICAL EXAMINATION: VITAL SIGNS: Temperature 98.5, pulse 81, respirations 20, blood pressure 112/68, pulse ox 97%. HEENT: Tongue is coated, but better. NECK: Supple. HEART: Regular rate. LUNGS: Clear. ABDOMEN: Positive splenomegaly, nontender. EXTREMITIES: No edema. SKIN: Warm and dry. NEUROLOGIC: Awake and alert. LABORATORY DATA: Patient's labs were done on the 10/22/2018, they will repeated as per Dr. Ag, his primary doctor due to TCU protocols. ASSESSMENT: For this patient is that of deconditioning weakness, chronic lymphocytic leukemia, chronic constipation, urinary retention, hypothyroidism, benign prostatic hyperplasia, dementia, oropharyngeal candidiasis, bilateral inguinal hernia, hydronephrosis history. PLAN: The plan is to continue his present medical regimen on TCU with further recommendations once the patient is discharged for followup for his CLL in the office with Dr. Tran. Trey Gillette MD
--- NOTE | 2018-10-26 22:45 | PN ---
DATE: 10/26/2018 SUBJECTIVE: Moose Alfredo is an 82-year-old male. He is in TCU, comfortable, awaiting for home assistance to help him walking. He has no new complaint. He is weak, but improving. His gait is better and seems doing well. PHYSICAL EXAMINATION VITAL SIGNS: Temperature 97.7, heart rate 81, blood pressure 112/62, respirations 18, and saturation 99%. HEAD AND NECK: Normal. No JVD. No thyromegaly. CHEST: Clear bilaterally. CARDIAC: First sound and second sounds are normal. ABDOMEN: Soft, nontender. He has bilateral inguinal hernia, wearing diaper and he had a Rod catheter coming out with a bag hanging on the bedside. EXTREMITIES: No edema. ASSESSMENT AND PLAN: 1. Generalized weakness, gait disorders, improving, getting better. Continue physical therapy. 2. Chronic lymphocytic leukemia, seems stable. At this time, we will continue current therapy, with follow recommendation by Dr. Tran, machinery mechanic, immunoglobulin in case of infection; otherwise we will observe. 3. Thrombocytopenia, anemia. The patient will need a colonoscopy for anemia and constipation including also upper endoscopy, will be done after 5 months. 4. Urinary retention, mild hydronephrosis, continue Rod. We will see Urology in 2 weeks. 5. Bilateral inguinal hernia, surgery will be done in 5 months, no obstructions and continue current medications. The patient was seen by assistance and we discussed with his cousin about the assistance at home to help him and monitor his case at home. Hany Ag MD
[2018-10-27] MEDS: Pantoprazole 20 mg EC Tab PO SCH (05:25)
[2018-10-27] MEDS: Levothyroxine 50 MCG TAB PO SCH (05:25)
--- NOTE | 2018-10-27 09:22 | PN ---
DATE: 10/24/2018 SUBJECTIVE: He is doing better with the physical therapy, stating he wants to go home. I discussed with him about getting the aide to send him home. Has no chest pain. Not short of breath. He is eating good and has no other complaint. PHYSICAL EXAMINATION: VITAL SIGNS: Temperature 98.2, heart rate 77, blood pressure 108/63, respirations 20, and saturation 98%. HEAD AND NECK: Normal. No JVD. No thyromegaly. CHEST: Clear bilaterally. CARDIAC: First sound and second sound normal. ABDOMEN: Soft and nontender with bilateral inguinal hernia, right is more than the left, huge right inguinal hernia EXTREMITIES: No edema. NEUROLOGIC: Normal. GENITOURINARY: The patient had a Rod catheter in. IMPRESSION AND PLAN: 1. Deconditioning, generalized weakness, gait disorder, the Rod. The patient seems doing well. He is walking better. He needs minimal assistance, and he will be discharged once we get an aide to work with him at home. 2. Coronary artery disease, status post stent in right coronary artery. 3. History of chronic lymphocytic leukemia. The patient is stable. Seen by Dr. Tran. Continue supportive therapy for now. In case of infections, recommended immunoglobulins, it happens. 4. Chronic constipation. It is better now. Moving his bowels. Continue current therapy, and we will go from there. The patient will need a colonoscopy after months. 5. Urinary retention. 6. Prostate enlargement. 7. Proximal hyperplasia. Continue current therapy. Rod catheter. May need to see Dr. Juarez in two to three weeks to change the Rod. Otherwise, continue current therapy. 8. Chronic anemia. 9. Dementia, stable. Continue current therapy. CURRENT MEDICATIONS: Ativan p.r.n. 0.5 every four hours, calcium, Colace b.i.d., vitamin D once a week, Ecotrin 81, Imdur 60 mg once a day, Lipitor 40, Amitiza 24 mg p.o .daily once a day. If need twice, we will give MiraLax b.i.d. p.r.n, Mirapex 0.25 mg t.i.d., multivitamins, nystatin oral suspensions, Pepcid 40 mg once a day, Plavix 75 mg once a day, Proscar 5 mg once a day, Protonix 20 mg once a day, Seroquel 25 mg at bedtime, Synthroid 50 mcg once a day, Tenormin 12.5 mg p.o. daily, tobramycin ophthalmic suspensions, and Tylenol p.r.n. Continue current therapy. We will follow up clinically. Discussed with the cousin. Discussed with Dr. Tran. We will decrease Tenormin to 12.5 mg daily from 25 because of low blood pressure. Hany Ag MD
[2018-10-27] MEDS ORDERED: Pantoprazole 40 mg EC Tab PO ONE (09:30)
[2018-10-27] MEDS ORDERED: MULTIVITAMIN PO SCH (10:00)
[2018-10-27] MEDS ORDERED: POLYETHYLENE GLYCOL 3350 17 GM/Dose PACKET PO SCH (10:00)
[2018-10-27] MEDS ORDERED: Multivitamin Therapeutic Tab PO SCH (10:00)
[2018-10-27] MEDS ORDERED: Non Formulary Medication (Lubiprostone [Amitiza] 24 MCG) PO SCH ×2 (10:00)
[2018-10-27] MEDS: Lubiprostone [Amitiza] 24 MCG PO SCH (10:21)
[2018-10-27] MEDS: Nystatin 100,000 Units/ml Oral Susp 5 ml UD PO SCH (10:22)
[2018-10-27] MEDS: MULTIVITAMIN PO SCH (10:22)
[2018-10-27 10:32] VITALS: BP 110/61; PULSE 80; RESP 18; TEMP 98.7; O2SAT 99
[2018-10-27] MEDS: Tobramycin/Dexamethasone (Tobradex) Opth Sol (2.5 ml) OU SCH (10:38)
[2018-10-27] MEDS ORDERED: Non Formulary Medication (Omeprazole [Omeprazole] 40 MG) PO SCH (12:00)
--- NOTE | 2018-10-27 15:29 | PN ---
DATE: 10/27/2018 This is [facility] visit on TCU. For Dr. Tran. SUBJECTIVE: The patient is an 82-year-old male who is sitting up in a chair with slow improvement with fresh deconditioning with his appetite marginally improved with oral hygiene oropharyngeal candidiasis with his disposition to be determined as per Dr. Ag and his insurance as this is day 8 of his TCU stay. The patient is known to suffer from B-cell lymphoma, CLL, and is in no acute distress. OBJECTIVE/PHYSICAL EXAMINATION: VITAL SIGNS: Temperature 98.7, pulse 80, respirations 18, blood pressure 110/61, pulse ox 99%. HEENT: Tongue is coated, but slightly improved. NECK: Supple. HEART: Regular rate. LUNGS: Clear. ABDOMEN: Positive for splenomegaly and nontender. EXTREMITIES: No edema. SKIN: Warm and dry. NEUROLOGIC: Awake and alert. LABORATORY DATA: The patient's labs were done on 10/22/2018, with repeat as per his primary doctor to do TCU protocols. ASSESSMENT: Deconditioning, chronic lymphocytic leukemia, chronic constipation, bilateral inguinal herniae, urinary retention, hypothyroidism, benign prostatic hyperplasia, dementia, oropharyngeal candidiasis, hydronephrosis history. PLAN: For this patient is to continue his present medical regimen with discharge as per primary doctor. We would followup as an outpatient with Dr. Tran in the office once he is discharged. Trey Gillette MD
[2018-10-28] MEDS ORDERED: Levothyroxine 50 MCG TAB PO SCH (06:00)
[2018-10-28] MEDS ORDERED: Pantoprazole 40 mg EC Tab PO SCH (07:30)
--- NOTE | 2018-10-29 08:38 | DS ---
HISTORY OF PRESENT ILLNESS: The patient is stable. His constipation problem is resolved. Urine incontinence, Rod catheter in doing well and he has stable blood count for CLL and low platelets. Clinically, the patient is able to walk around with a cane or some assistance and we plan to get him home assistance. The patient otherwise stable. No chest pain, no short of breath. PHYSICAL EXAMINATION: VITAL SIGNS: On discharge, temperature 98.7, heart rate 80, blood pressure 110/61, respirations 18, sat 99%. HEAD AND NECK: Normal. No JVD. No thyromegaly. CHEST: Clear bilaterally. CARDIAC: First sounds and second sounds are normal. ABDOMEN: Soft, obese, nontender. EXTREMITIES: No edema. NEUROLOGIC: Normal. The patient had abdominal exam where it is mentioned as bilateral inguinal hernia and also had a Rod catheter connected. LABORATORY DATA: Las blood work, sodium 141, potassium 4, chloride 105, bicarb 28, BUN 30, creatinine 1. Chemistry shows white count 8.7, hemoglobin 11.4, hematocrit 35.8, platelets 108. DISCHARGE DIAGNOSES: 1. Deconditioning, gait disorder. Continue physical therapy. Doing better, will be discharged home with home care. 2. Anemia, stable, probably could be combination of myelodysplasia with chronic lymphocytic leukemia, we will monitor that with Dr. Tran. At this time no interventions, only immunoglobulin for any concurrent infections. 3. Urinary retention, hydronephrosis, mild. Continue Rod. 4. Bilateral inguinal hernia and chronic constipation and anemia, will need a colonoscopy after 5 months. 5. Coronary artery disease with right coronary artery stent. Plan, continue current therapy. 6. Dementia. Plan, continue current therapy. Followup clinically. Hany Ag MD
== END 2018-10-27 12:34 | disposition home or self-care (01) | DRG 945 ==
LOC: TRCU 18:19
PROVIDERS: ADMIT Internal Medicine; ATTEND Internal Medicine
PROC: F07Z9FZ Gait Training/Functional Ambulation Treatment using Assistive, Adaptive, Supportive or Protective Equipment (ICD-10-PCS; principal; 2018-10-21)
PROC: F07M6ZZ Therapeutic Exercise Treatment of Musculoskeletal System - Whole Body (ICD-10-PCS; 2018-10-21)
PROC: F07Z8FZ Transfer Training Treatment using Assistive, Adaptive, Supportive or Protective Equipment (ICD-10-PCS; 2018-10-22)
PROC: F08Z4FZ Home Management Treatment using Assistive, Adaptive, Supportive or Protective Equipment (ICD-10-PCS; 2018-10-22)
DX: R53.1 Weakness (principal); N13.30 Unspecified hydronephrosis; B37.0 Candidal stomatitis; C91.10 Chronic lymphocytic leukemia of B-cell type not having achieved remission; R26.2 Difficulty in walking, not elsewhere classified; F03.90 Unspecified dementia, unspecified severity, without behavioral disturbance, psychotic disturbance, mood disturbance, and anxiety; N40.1 Benign prostatic hyperplasia with lower urinary tract symptoms; R33.8 Other retention of urine; E03.9 Hypothyroidism, unspecified; H26.9 Unspecified cataract; H10.9 Unspecified conjunctivitis; K40.20 Bilateral inguinal hernia, without obstruction or gangrene, not specified as recurrent; I25.10 Atherosclerotic heart disease of native coronary artery without angina pectoris; E78.00 Pure hypercholesterolemia, unspecified; K59.09 Other constipation; D69.6 Thrombocytopenia, unspecified; D64.9 Anemia, unspecified; Z95.5 Presence of coronary angioplasty implant and graft